=== PATIENT | female | born 1955 | race Native Hawaiian/Other Pacific Islander ===

== ENCOUNTER 2016-12-03 11:27 | Inpatient (IN) | payer MEDICAID, OTHER ==
[2016-12-03 12:33] LABS: BASO % 0.5 % (0.0-2.0); EOS # 0.1 K/uL (0.0-0.7); EOS % 2.3 % (0.0-4.0); HEMATOCRIT 40.4 % (34.0-47.0); LYMPH # 1.2 K/uL (1.0-4.3); LYMPH % 28.1 % (20.0-40.0); MEAN CELL VOLUME 84.3 fl (81.0-99.0); MEAN CORPUSCULAR HEMOGLOBIN 28.7 pg (27.0-31.0); MEAN CORPUSCULAR HGB CONC 34.1 g/dL (33.0-37.0); MEAN PLATELET VOLUME 8.8 fl (7.2-11.7); MONO # 0.4 K/uL (0.0-0.8); MONO % 8.9 % (0.0-10.0); NEUT # 2.6 K/uL (1.8-7.0); NEUT % 60.2 % (50.0-75.0); NRBC % 0.1 % (0.0-0.0); RED CELL DISTRIBUTION WIDTH 17.9 % (11.5-14.5); WHITE BLOOD COUNT 4.2 K/uL (4.8-10.8)
[2016-12-03 12:37] LABS: ALB/GLOB RATIO 0.9 (1.0-2.1); ALKALINE PHOSPHATASE 99 U/L (38-126); ALT/SGPT 25 U/L (9-52); AST/SGOT 53 U/L (14-36); BILIRUBIN,TOTAL 2.2 mg/dl (0.2-1.3); BLOOD UREA NITROGEN 18 mg/dl (7-17); CALCIUM 9.2 mg/dL (8.4-10.2); CARBON DIOXIDE 26 mmol/L (22-30); CHLORIDE 104 mmol/L (98-107); GFR AFRICAN-AMERICAN > 60; GLUCOSE,RANDOM 131 mg/dL (65-105); LIPASE 136 U/L (23-300); SODIUM 143 mmol/l (132-148); TOTAL PROTEIN 7.5 G/DL (6.3-8.2)
[2016-12-03 13:11] LABS: POTASSIUM 5.1 MMOL/L (3.6-5.0)
--- NOTE | 2016-12-03 13:16 | RAD ---
Obstructive series dated 12/03/2016. History: Abdominal pain and vomiting. Frontal view of the chest and supine/erect views of the abdomen performed. No prior study available comparison. Findings: Heart is mildly enlarged. Aorta is slightly ectatic and uncoiled. Lung brown are clear without focal consolidation or effusion. No free air seen under the diaphragmatic surfaces. Moderate to large amount of stool is seen throughout the colon consistent with fecal retention/constipation. Elliptical shaped coarse calcification overlying the right parasagittal sacrum non most likely represent calcified uterine fibroid. Impression: Mild cardiomegaly. No acute infiltrates. Findings consistent with constipation.
--- NOTE | 2016-12-03 13:58 | ED PDOC ---
HPI: Abdomen Time Seen by Provider: 12/03/16 11:48 Chief Complaint (Nursing): Abdominal Pain History Per: Other (patient brought from home via EMS. per report patient has abdominal pain according to the daughter. Daughter has not shown up to the hospital. Patient is not capable of giving a history. Was told by EMS that she is lithuanian but she did not acknowledge any of the video interpretors that were used.) History/Exam Limitations: language barrier Past Medical History Reviewed: Unable To Obtain Vital Signs: Last Vital Signs Temp 97.3 F L 12/03/16 11:29 Pulse 97 H 12/03/16 11:29 Resp 18 12/03/16 11:29 BP 125/79 12/03/16 11:29 Pulse Ox 98 12/03/16 14:37 - Family History Family History: States: No Known Family Hx - Allergies Allergies/Adverse Reactions: Allergies Allergy/AdvReac Type Severity Reaction Status Date / Time No Known Allergies Allergy Verified 12/03/16 12:00 Review of Systems Review Of Systems: ROS cannot be obtained secondary to pt's inabilty to answer questions. Physical Exam - Reviewed Nursing Documentation Reviewed: Yes Vital Signs Reviewed: Yes - Physical Exam Appears: Positive for: Well, Non-toxic, No Acute Distress Head Exam: Positive for: ATRAUMATIC, NORMAL INSPECTION, NORMOCEPHALIC Skin: Positive for: Normal Color, Warm, DRY Eye Exam: Positive for: EOMI, Normal appearance, PERRL ENT: Positive for: Normal ENT Inspection Neck: Positive for: Normal, Painless ROM Cardiovascular/Chest: Positive for: Regular Rate, Rhythm Respiratory: Positive for: CNT, Normal Breath Sounds Gastrointestinal/Abdominal: Positive for: Normal Exam, Bowel Sounds, Soft Back: Positive for: Normal Inspection Extremity: Positive for: Normal ROM Neurologic/Psych: Positive for: Alert, Oriented - Laboratory Results Result Diagrams: 12/03/16 12:10 12/03/16 12:10 - ECG O2 Sat by Pulse Oximetry: 98 Disposition - Clinical Impression Clinical Impression: Abdominal pain in female - Patient ED Disposition Is Patient to be Admitted: Transfer of Care - Disposition Disposition: Transfer of Care Disposition Time: 14:37 Condition: STABLE Patient Signed Over To: Payal Holm
--- NOTE | 2016-12-03 15:22 | ED PDOC ---
- Laboratory Results Result Diagrams: 12/03/16 12:10 12/03/16 12:10 - ECG ECG Rhythm: Positive for: Normal ST Segment, Atrial Fibrillation O2 Sat by Pulse Oximetry: 98 (RA) Pulse Ox Interpretation: Normal Medical Decision Making Medical Decision Making: Time: 15:00 --Transfer of care --Patient is pending ER workup, reassessment, and final disposition. Labs unremarkable. Accession No. : [id number] Patient Name / ID : TUAN HERNANDEZ / [id number] Exam Date : 12/03/2016 16:19:19 ( Approved ) Study Comment : Sex / Age : F / 61Y Creator : Jerome Joy MD Dictator : Jerome Joy MD Spare Parts Clerk : Inspector Aligning : Jerome Joy MD Approver2 : Report Date : 12/03/2016 17:07:48 My Comment : PROCEDURE: CT Abdomen and pelvis 12/03/16. HISTORY: abd pain COMPARISON: No prior TECHNIQUE: Contiguous axial images of the abdomen and pelvis. Oral contrast was administered. No IV contrast given. Coronal and Sagittal reformats generated. Radiation dose: Total exam DLP = 1028.21mGy-cm. This CT exam was performed using one or more of the following dose reduction techniques: Automated exposure control, adjustment of the mA and/or kV according to patient size, and/or use of iterative reconstruction technique. FINDINGS: LOWER THORAX: Mild right basilar atelectasis and or scarring. No effusion or basilar pneumothorax. There is a small hiatal hernia with wall thickening of the distal esophagus that could be due to protrusion gastric mucosa. Esophagitis or other intrinsic/invasive wall lesion not excluded. Heart size within range of normal. No significant pericardial effusion. LIVER: Liver exhibits normal size and attenuation pattern. No evidence of obvious hepatic mass or collection. GALLBLADDER AND BILE DUCTS: Gallbladder is physiologically distended. No evidence of intraluminal gallbladder calculi. PANCREAS: Visualized portions of the pancreas appear grossly unremarkable without mass collection calcification or significant ductal dilatation. SPLEEN: Spleen is mildly enlarged measuring approximately 14 cm in CC dimension. No obvious splenic mass collection or calcification. There are multiple serpiginous densities in the left upper quadrant of the abdomen adjacent to the posterior margin of the pancreas surrounding adjacent to the spleen and liver consistent with varices. Findings suggest underlying portal hypertension however clinical correlation with history recommended. . ADRENALS: There are no adrenal lesions. KIDNEYS AND URETERS: Kidneys exhibit symmetric size. . No evidence of nephrolithiasis or hydronephrosis. BLADDER: Urinary bladder is incompletely distended which may account for thick-walled appearance. Cystitis should be excluded. REPRODUCTIVE: Uterus is somewhat bulky and enlarged with more discrete exophytic appearing soft density containing calcification consistent with a calcified exophytic uterine fibroid. Pelvic ultrasound recommended confirm. APPENDIX: The appendix is not seen with certainty however no inflammatory changes right lower quadrant of the abdomen. BOWEL: The stomach is incompletely distended which presumably accounts for slight thick -walled appearance. Visualized loops of small bowel exhibit normal contour and caliber. No evidence of acute mechanical small bowel obstruction. Moderately large amount of stool seen throughout the colon consistent with constipation. No definitive mural wall thickening. PERITONEUM: Unremarkable. No fluid collection. No free air. There is a small to medium sized fat containing umbilical hernia. In addition, there also appears to be a fat containing right posterolateral abdominal wall hernia best seen on axial image numbers 57- 92 LYMPH NODES: Evaluation for adenopathy somewhat limited due to the lack of circulating intravenous contrast material however no significant bulky adenopathy VASCULATURE: Unremarkable. No aortic aneurysm. BONES: Minor multilevel degenerative spondylosis of the lower thoracic and lumbar spine few small sclerotic densities both femoral heads consistent osteomas or bone islands OTHER FINDINGS: None. IMPRESSION: Findings consistent with portal hypertension evidenced by varices. Suspect underlying cirrhosis. . Mild splenomegaly. Mild constipation. Fibroid uterus. Urinary bladder is incompletely distended which presumably accounts for thick- walled appearance. . Cystitis to be excluded. Fat containing umbilical and right posterolateral abdominal wall hernias as above Daughter arrived to ER and reported further history. Pt has aphasia and RIGHT sided weakness from a recent CVA, which is why there was difficulty with video curb attendant. Pt able to answer yes/no questions to daughter. She is reporting chest pain, feels like something is pushing on her chest, heaviness. Associated with shortness of breath described as feeling like she can't take a deep breath. She started vomiting today 2 episodes nonbilious nonbloody. No diarrhea. No fever/chills. She does not follow regularly with a PMD due to insurance issues. She has been compliant with her medications, given by her daughter. Given cardiovascular history, pt needs hospitalization for chest pain. DW Dr Mir Hospitalist Scribe Attestation: Documented by Sintia Gleason, acting as a scribe for Payal Holm MD. Provider Scribe Attestation: All medical record entries made by the Scribe were at my direction and personally dictated by me. I have reviewed the chart and agree that the record accurately reflects my personal performance of the history, physical exam, medical decision making, and the department course for this patient. I have also personally directed, reviewed, and agree with the discharge instructions and disposition. Disposition - Clinical Impression Clinical Impression: Chest pain, Atrial fibrillation - POA Present On Arrival: None - Disposition Disposition: Hospitalized as Observation Patient Disposition Time: 15:00 Condition: STABLE
--- NOTE | 2016-12-03 17:09 | CT ---
PROCEDURE: CT Abdomen and pelvis 12/03/16. HISTORY: abd pain COMPARISON: No prior TECHNIQUE: Contiguous axial images of the abdomen and pelvis. Oral contrast was administered. No IV contrast given. Coronal and Sagittal reformats generated. Radiation dose: Total exam DLP = 1028.21mGy-cm. This CT exam was performed using one or more of the following dose reduction techniques: Automated exposure control, adjustment of the mA and/or kV according to patient size, and/or use of iterative reconstruction technique. FINDINGS: LOWER THORAX: Mild right basilar atelectasis and or scarring. No effusion or basilar pneumothorax. There is a small hiatal hernia with wall thickening of the distal esophagus that could be due to protrusion gastric mucosa. Esophagitis or other intrinsic/invasive wall lesion not excluded. Heart size within range of normal. No significant pericardial effusion. LIVER: Liver exhibits normal size and attenuation pattern. No evidence of obvious hepatic mass or collection. GALLBLADDER AND BILE DUCTS: Gallbladder is physiologically distended. No evidence of intraluminal gallbladder calculi. PANCREAS: Visualized portions of the pancreas appear grossly unremarkable without mass collection calcification or significant ductal dilatation. SPLEEN: Spleen is mildly enlarged measuring approximately 14 cm in CC dimension. No obvious splenic mass collection or calcification. There are multiple serpiginous densities in the left upper quadrant of the abdomen adjacent to the posterior margin of the pancreas surrounding adjacent to the spleen and liver consistent with varices. Findings suggest underlying portal hypertension however clinical correlation with history recommended. . ADRENALS: There are no adrenal lesions. KIDNEYS AND URETERS: Kidneys exhibit symmetric size. . No evidence of nephrolithiasis or hydronephrosis. BLADDER: Urinary bladder is incompletely distended which may account for thick-walled appearance. Cystitis should be excluded. REPRODUCTIVE: Uterus is somewhat bulky and enlarged with more discrete exophytic appearing soft density containing calcification consistent with a calcified exophytic uterine fibroid. Pelvic ultrasound recommended confirm. APPENDIX: The appendix is not seen with certainty however no inflammatory changes right lower quadrant of the abdomen. BOWEL: The stomach is incompletely distended which presumably accounts for slight thick-walled appearance. Visualized loops of small bowel exhibit normal contour and caliber. No evidence of acute mechanical small bowel obstruction. Moderately large amount of stool seen throughout the colon consistent with constipation. No definitive mural wall thickening. PERITONEUM: Unremarkable. No fluid collection. No free air. There is a small to medium sized fat containing umbilical hernia. In addition, there also appears to be a fat containing right posterolateral abdominal wall hernia best seen on axial image numbers 57- 92 LYMPH NODES: Evaluation for adenopathy somewhat limited due to the lack of circulating intravenous contrast material however no significant bulky adenopathy VASCULATURE: Unremarkable. No aortic aneurysm. BONES: Minor multilevel degenerative spondylosis of the lower thoracic and lumbar spine few small sclerotic densities both femoral heads consistent osteomas or bone islands OTHER FINDINGS: None. IMPRESSION: Findings consistent with portal hypertension evidenced by varices. Suspect underlying cirrhosis. . Mild splenomegaly. Mild constipation. Fibroid uterus. Urinary bladder is incompletely distended which presumably accounts for thick-walled appearance. . Cystitis to be excluded. Fat containing umbilical and right posterolateral abdominal wall hernias as above
--- NOTE | 2016-12-03 18:01 | CARD ---
APPROVED REPORT EKG Measurement Heart [id number] <Conclusion> Atrial fibrillation Abnormal ECG
[2016-12-03 19:14] LABS: TROPONIN I 0.013 ng/mL (0.00-0.120)
--- NOTE | 2016-12-03 20:26 | CP.PCM.HP ---
History of Present Illness - History of Present Illness History of Present Illness: Hospitalist Admission H&P (Patient was seen and examined at 7:40 PM 12/03/16 ER Bed #23) PMD: NONE. NO insurance CODE STATUS: FULL CODE. NO Living Will/Advance Directive. Daughter Sabina is primary decision maker CHIEF COMPLAINT: Chest Pain 61 year old female (PMHx CVA, DM 2, HTN, A-fibrillation, Hyperthyroidism) who presented to [facility] ER earlier this morning via ambulance with a chief complaint of Chest Pain. Please note that when the patient arrived to the ER, staff could not understand what she was saying. Therefore ER Physician used an Italian [employer] Interpretor who also could not understand what the patient was saying. When patient's Daughter Sabina eventually arrived, Sabina explained that patient suffered a CVA with Right Arm and Right Leg Paralysis with Aphasia roughly 1 month ago and was treated at [facility]. I spoke with Sabina via phone and she explained that since last night, patient was complaining of center of the chest pain that felt like to her that someone was pushing on it. It was not constant but came and went. Then this morning after eating breakfast patient had 2 episodes of vomiting up the food that she had eaten. Therefore Sabina called EMS and patient was brought here. Sabina could not provide any more information than this and the patient is not verbal at the time of my exam. ROS: not possible as patient is not verbal PMHx: CVA with Right Arm/Leg Paralysis and Aphasia, DM 2, HTN, A-fibrillation, Hyperthyroidism (please note when speaking with Sabina and trying to obtain history she did not mention the A-fibrillation and the Hyperthyroidism: these two aspects of her history were the result of her exam and review of her medications) PSHx: ALL: NKDA, NO known food allergies Medications: Methimazole 5 mg PO 1x/day, Metformin 500 mg PO 1x/day, ASA 81 mg PO 1x/day, Metoprolol Tartrate 25 mg PO 2x/day, Lipitor 40 mg PO QHS, Apixaban 5 mg PO Q12H (Sabina assured me that patient was taking her medications as prescribed) Social History: Lives with Daughter, NO tobacco, NO alcohol, NO illicit drugs Family History: HTN, DM2, NO known CAD Present on Admission - Present on Admission Any Indicators Present on Admission: Yes History of DVT/PE: No Urinary Catheter: No Decubitus Ulcer Present: No Review of Systems - Review of Systems Review of Systems: See HPI Past Patient History - Infectious Disease Hx of Infectious Diseases: None - Past Medical History & Family History Pertinent Family History: See HPI - Past Social History Smoking Status: Unknown If Ever Smoked - PSYCHIATRIC Hx Substance Use: No Meds Allergies/Adverse Reactions: Allergies Allergy/AdvReac Type Severity Reaction Status Date / Time No Known Allergies Allergy Verified 12/03/16 12:00 Physical Exam - Constitutional Appears: Non-toxic, No Acute Distress - Head Exam Head Exam: ATRAUMATIC, NORMAL INSPECTION, NORMOCEPHALIC - Eye Exam Eye Exam: EOMI, Normal appearance, PERRL Pupil Exam: NORMAL ACCOMODATION, PERRL - ENT Exam ENT Exam: Mucous Membranes Moist, Normal Exam, Normal External Ear Exam, Normal Oropharynx Additional comments: Poor dentition - Neck Exam Neck exam: Positive for: Normal Inspection Additional comments: NO thyromegaly NO cervical lymphadenopathy - Respiratory Exam Respiratory Exam: Clear to Auscultation Bilateral, NORMAL BREATHING PATTERN Additional comments: NO R/R/W - Cardiovascular Exam Additional comments: Irregularly Irregular - GI/Abdominal Exam Additional comments: BSx4, Soft, NT, Central Obesity, NO HSM, NO guarding/rebound tenderness - Extremities Exam Additional comments: NO edema Capillary Refill is 2 seconds Pulses are strong and equal and irregular Right Anterior Lower Leg and Left Posterior Lower Leg have large skin patch that is brown - Neurological Exam Neurological exam: CN II-XII Intact Results - Vital Signs Recent Vital Signs: Last Vital Signs Temp 97.3 F L 12/03/16 11:29 Pulse 89 12/03/16 15:36 Resp 16 12/03/16 15:36 BP 144/82 12/03/16 15:36 Pulse Ox 99 12/03/16 15:36 - Labs Result Diagrams: 12/03/16 12:10 12/03/16 12:10 Labs: Laboratory Results - last 24 hr 12/03/16 18:32 Troponin I 0.0130 NT-Pro-B Natriuret Pep 769 Assessment & Plan (1) Atypical chest pain Assessment and Plan: Place on observation in the telemetry unit Troponin #1 and #2 are negative Troponin #3 and EKG ordered for 12:30 AM 12/04/16 F/U Stat TSH, T4, and D-Dimer Consult Manager Clinical Dr. Napoles for further recommendations Status: Acute (2) History of CVA (cerebrovascular accident) Assessment and Plan: History of CVA with Right Arm and Right Leg Paralysis roughly 1 month ago treated at [facility] Patient is also incontinent of urine F/U stat CT Head w/o contrast Status: Chronic (3) Abnormal computed tomography of abdomen and pelvis Assessment and Plan: CT Abdomen and Pelvis done in the ER Varices present with Portal HTN and Liver Cirrhosis is suspected: will need outpatient GI F/U Mild Contipation: Colace 100 mg PO 2x/day ordered Urinary Bladder is incompletely distended, Cystitis to be excluded: Ellis Catheter and Urine Culture ordered Fat containing umbilical and right posteriorlateral abdominal wall hernia: monitor Status: Acute (4) DM type 2 (diabetes mellitus, type 2) Assessment and Plan: Metformin 500 mg PO 1x/day F/U HgBA1C Accuchecks 4x/day with RISS Status: Chronic (5) HTN (hypertension) Assessment and Plan: Metoprolol Tartrate 25 mg PO 2x/day Consider adding a low dose KVNG I or ARB (considering DM 2) Status: Chronic (6) Atrial fibrillation Assessment and Plan: EKG shows A-fibrillation at 89 bpm Eliquis 5 mg PO Q12H once CT Head is confirmed negative for bleed Metoprolol as above Status: Chronic (7) Hyperthyroidism Assessment and Plan: F/U stat TSH and T4 Methimazole 5 mg PO 1x/day Status: Chronic (8) Hyperlipidemia Assessment and Plan: Lipitor 40 mg PO QHS F/U Lipid Panel in morning 12/04/16 Status: Chronic (9) Prophylactic measure Assessment and Plan: Protonix 40 mg PO 1x/day Eliquis as above once CT Head is negative Abdominal Obstruction Series showed MILD cardiomegaly (ProBNP was WNL). NO free air. Moderate to large amount of stool throughout the colon. Andre Mir D.O. Status: Acute
[2016-12-03 21:18] LABS: THYROID STIMULATING HORMONE 5.68 mIU/ML (0.46-4.68)
[2016-12-03] MEDS: Insulin Regular 100 units/ml SC SCH (21:30)
[2016-12-03 22:26] VITALS: BMI 33.2
[2016-12-03 22:46] LABS: RBC URINE 3 /hpf (0-3); URINE BACTERIA RARE (<OCC); URINE BILIRUBIN SMALL (NEGATIVE); URINE BLOOD NEGATIVE (NEGATIVE); URINE COLOR AMBER (YELLOW); URINE GLUCOSE (UA) NEG (Normal); URINE KETONE TRACE mg/dL (NEGATIVE); URINE LEUKOCYTE ESTERASE NEG Leu/uL (Negative); URINE PROTEIN 100 mg/dL (NEGATIVE); WBC URINE 2 /hpf (0-5)
[2016-12-04 06:15] LABS: BASO % 0.7 % (0.0-2.0); EOS # 0.1 K/uL (0.0-0.7); EOS % 2.6 % (0.0-4.0); HEMATOCRIT 38.6 % (34.0-47.0); LYMPH # 1.3 K/uL (1.0-4.3); MEAN CELL VOLUME 84.7 fl (81.0-99.0); MEAN CORPUSCULAR HGB CONC 34.3 g/dL (33.0-37.0); MEAN PLATELET VOLUME 9.4 fl (7.2-11.7); MONO # 0.4 K/uL (0.0-0.8); MONO % 9.2 % (0.0-10.0); NEUT # 2.2 K/uL (1.8-7.0); NEUT % 55.5 % (50.0-75.0); NRBC % 0.1 % (0.0-0.0); RED CELL DISTRIBUTION WIDTH 17.7 % (11.5-14.5)
[2016-12-04 06:17] LABS: BLOOD UREA NITROGEN 17 mg/dl (7-17); CALCIUM 9.5 mg/dL (8.4-10.2); CARBON DIOXIDE 26 mmol/L (22-30); CHLORIDE 104 mmol/L (98-107); CHOLESTEROL 103 mg/dL (0-199); GFR AFRICAN-AMERICAN > 60; GLUCOSE,RANDOM 146 mg/dL (65-105); MAGNESIUM 1.6 MG/DL (1.6-2.3); PHOSPHOROUS 4.4 mg/dl (2.5-4.5); POTASSIUM 3.8 MMOL/L (3.6-5.0); SODIUM 142 mmol/l (132-148)
[2016-12-04] MEDS: Insulin Regular 100 units/ml SC SCH ×4 (07:20→22:33)
--- NOTE | 2016-12-04 07:22 | CP.PCM.CON ---
History of Present Illness - History of Present Illness History of Present Illness: 61 year old female s/p CVA 1 Month ago (PMHx CVA, DM 2, HTN, A-fibrillation, Hyperthyroidism) who presented to [facility] ER earlier this morning via ambulance with a chief complaint of Chest Pain. Please note that when the patient arrived to the ER, staff could not understand what she was saying. Pt has been aphasic x [address] Head shows a small bleed in the patient's prior area of CVA. EKG: atrial Fibrillation Troponin : Neg Past Patient History - Infectious Disease Hx of Infectious Diseases: None - Past Medical History & Family History Past Medical History?: Yes - Past Social History Smoking Status: Never Smoked - CARDIAC Hx Cardiac Disorders: Yes - NEUROLOGICAL Hx Paralysis: Yes - ENDOCRINE/METABOLIC Hx Endocrine Disorders: Yes - MUSCULOSKELETAL/RHEUMATOLOGICAL Hx Falls: No - PSYCHIATRIC Hx Substance Use: No - SURGICAL HISTORY Hx Cholecystectomy: Yes - ANESTHESIA Hx Anesthesia: Yes Hx Anesthesia Reactions: No Meds Allergies/Adverse Reactions: Allergies Allergy/AdvReac Type Severity Reaction Status Date / Time No Known Allergies Allergy Verified 12/03/16 12:00 - Medications Medications: Current Medications Atorvastatin Calcium (Lipitor) 40 mg PO HS [facility] Last Admin: 12/03/16 22:06 Dose: 40 mg Docusate Sodium (Colace) 100 mg PO BID [facility] Last Admin: 12/03/16 22:20 Dose: 100 mg Insulin Human Regular (Humulin R) 0 units SC [facility] Last Admin: 12/03/16 21:30 Dose: Not Given Metformin HCl (Glucophage) 500 mg PO DAILY [facility] Methimazole (Tapazole) 5 mg PO DAILY [facility] Metoprolol Tartrate (Lopressor) 25 mg PO BID [facility] Pneumococcal Polyvalent Vaccine (Pneumovax 23 Vaccine) 0.5 ml IM .ONCE ONE Stop: 12/04/16 09:01 Physical Exam - Respiratory Exam Respiratory Exam: NORMAL BREATHING PATTERN - Cardiovascular Exam Cardiovascular Exam: Irregular Rhythm, REGULAR RHYTHM Results - Vital Signs Recent Vital Signs: Last Vital Signs Temp 97.7 F 12/04/16 04:00 Pulse 114 H 12/04/16 06:00 Resp 12 12/04/16 06:00 BP 128/67 12/04/16 06:00 Pulse Ox 96 12/04/16 06:00 - Labs Result Diagrams: 12/04/16 05:53 12/04/16 05:53 Labs: Laboratory Results - last 24 hr 12/03/16 12/03/16 12/03/16 18:32 20:29 20:35 WBC RBC Hgb Hct MCV MCH MCHC RDW Plt Count MPV Neut % (Auto) Lymph % (Auto) [place] % (Auto) Eos % (Auto) Baso % (Auto) Neut # Lymph # [place]tero # Eos # Baso # D-Dimer, Quantitative 0.55 H Sodium Potassium Chloride Carbon Dioxide Anion Gap BUN Creatinine Est GFR ( Amer) Est GFR (Non-Af Amer) POC Glucose (mg/dL) 123 H Random Glucose Calcium Phosphorus Magnesium Troponin I 0.0130 < 0.0120 NT-Pro-B Natriuret Pep 769 Triglycerides Cholesterol LDL Cholesterol Direct HDL Cholesterol Thyroxine (T4) 10.0 TSH 3rd Generation 5.68 H Urine Color Urine Clarity Urine pH Ur Specific [place] Urine Protein Urine Glucose (UA) Urine Ketones Urine Blood Urine Nitrate Urine Bilirubin Urine Urobilinogen Ur Leukocyte Esterase Urine RBC (Auto) Urine Microscopic WBC Ur Squamous Epith Cells Urine Bacteria 12/03/16 12/04/16 12/04/16 22:07 01:04 05:53 WBC 4.0 L RBC 4.55 Hgb 13.2 Hct 38.6 MCV 84.7 MCH 29.0 MCHC 34.3 RDW 17.7 H Plt Count 170 MPV 9.4 Neut % (Auto) 55.5 Lymph % (Auto) 32.0 O[place] % (Auto) 9.2 Eos % (Auto) 2.6 Baso % (Auto) 0.7 Neut # 2.2 Lymph # 1.3 O[place]o # 0.4 Eos # 0.1 Baso # 0.0 D-Dimer, Quantitative Sodium 142 Potassium 3.8 Chloride 104 Carbon Dioxide 26 Anion Gap 15 BUN 17 Creatinine 0.6 L Est GFR ( Amer) > 60 Est GFR (Non-Af Amer) > 60 POC Glucose (mg/dL) 132 H Random Glucose 146 H Calcium 9.5 Phosphorus 4.4 Magnesium 1.6 Troponin I < 0.0120 NT-Pro-B Natriuret Pep Triglycerides 90 Cholesterol 103 LDL Cholesterol Direct 46 HDL Cholesterol 35 Thyroxine (T4) TSH 3rd Generation Urine Color [place] Urine Clarity Cloudy Urine pH 5.0 Ur Specific [place] 1.039 H Urine Protein 100 Urine Glucose (UA) Neg Urine Ketones Trace Urine Blood Negative Urine Nitrate Negative Urine Bilirubin Small Urine Urobilinogen 2.0 H Ur Leukocyte Esterase Neg Urine RBC (Auto) 3 Urine Microscopic WBC 2 Ur Squamous Epith Cells 3 Urine Bacteria Rare Assessment & Plan (1) Atypical chest pain Assessment and Plan: EKG: WNL Troponin neg do not fell this represents ACS Status: Resolved (2) Atrial fibrillation Assessment and Plan: The patient's HR is controlled at present if need be would start Metoprolol Status: Chronic (3) DM type 2 (diabetes mellitus, type 2) Status: Chronic (4) HTN (hypertension) Status: Chronic (5) History of CVA (cerebrovascular accident) Status: Chronic
--- NOTE | 2016-12-04 08:29 | CT ---
PROCEDURE: CT HEAD WITHOUT CONTRAST. HISTORY: Dizziness, Headache COMPARISON: None available. TECHNIQUE: Axial computed tomography images were obtained through the head/brain without intravenous contrast. Radiation dose: Total exam DLP = 1238.81 MGy-cm. This CT exam was performed using one or more of the following dose reduction techniques: Automated exposure control, adjustment of the mA and/or kV according to patient size, and/or use of iterative reconstruction technique. FINDINGS: HEMORRHAGE: No intracranial hemorrhage. BRAIN: There is multifocal linear high attenuation in the left basal ganglia posterior limb of internal capsule and medial temporal. There is a large cystic encephalomalacia in the left almonte radiata, frontal, temporal and parietal lobes and basal ganglia with volume loss and mild ex vacuo dilatation of the left lateral ventricle. VENTRICLES: There is moderate age-related global parenchymal volume loss and proportionate enlargement of the ventricles and cortical sulci. . CALVARIUM: The skull base and calvarium are normal. PARANASAL SINUSES: There is complete opacification of the visualized right maxillary and ethmoid air cells and mild mucosal thickening in the right frontal sinus. The visualized left-sided paranasal sinuses are clear. MASTOID AIR CELLS: Predominantly clear. OTHER FINDINGS: None. IMPRESSION: Linear acute hemorrhage in the left basal ganglia and posterior limb internal capsule and medial temporal lobe. Large cystic encephalomalacia in the left almonte radiata, frontal, temporal and parietal lobes and basal ganglia a sequela of left MCA territory infarction. Moderate age related global parenchymal volume loss. A preliminary report was provided by [employer].
--- NOTE | 2016-12-04 08:58 | CP.CCUPN ---
CCU Subjective - Physician Review Events Since Last Encounter (Free Text): 12/04/16 08:56 Patient awake, no distress, aphasic, no fever, no vomiting, events reviewed CCU Objective - Vital Signs / Intake & Output Vital Signs (Last 4 hours): Vital Signs Pulse Resp BP Pulse Ox 12/04/16 06:00 114 H 12 128/67 96 Intake and Output (Last 8hrs): Intake & Output 12/03/16 12/04/16 12/04/16 22:59 06:59 14:59 Intake Total 0 120 Output Total 200 Balance 0 -80 Weight 212 lb Intake: IV 0 Oral 120 Output: Urine 200 Urethral (Ellis) 200 - Physical Exam Head: Positive for: Atraumatic, Normocephalic Pupils: Positive for: PERRL Conjunctiva: Positive for: Normal Ears: Positive for: Normal Mouth: Positive for: Moist Mucous Membranes Pharnyx: Positive for: Normal Nose (External): Positive for: Atraumatic Neck: Positive for: Normal Range of Motion Respiratory/Chest: Positive for: Clear to Auscultation Cardiovascular: Positive for: Irregular Rhythm Abdomen: Positive for: Normal Bowel Sounds Upper Extremity: Positive for: Normal Inspection Lower Extremity: Positive for: Edema Neurological: Positive for: Other (Rt side hemparesis) - Medications Active Medications: Active Medications Generic Name Dose Route Start Last Admin Trade Name Freq PRN Reason Stop Dose Admin Atorvastatin Calcium 40 mg 12/03/16 22:00 12/03/16 22:06 Lipitor PO 40 mg HS JULIETA Administration Docusate Sodium 100 mg 12/03/16 20:45 12/03/16 22:20 Colace PO 100 mg BID JULIETA Administration Insulin Human Regular 0 units 12/03/16 22:00 12/03/16 21:30 Humulin R SC Not Given ACHS JULIETA Metformin HCl 500 mg 12/04/16 09:00 Glucophage PO DAILY [facility] Methimazole 5 mg 12/04/16 09:00 Tapazole PO DAILY [facility] Metoprolol Tartrate 25 mg 12/04/16 09:00 Lopressor PO BID [facility] Pneumococcal Polyvalent Vaccine 0.5 ml 12/04/16 09:00 Pneumovax 23 Vaccine IM 12/04/16 09:01 .ONCE ONE - Patient Studies Lab Studies: Lab Studies 04/22/17 04/22/17 04/22/17 Range/Units 06:34 05:53 01:04 WBC 4.0 L (4.8-10.8) K/uL RBC 4.55 (3.80-5.20) Mil/uL Hgb 13.2 (12.0-16.0) g/dL Hct 38.6 (34.0-47.0) % MCV 84.7 (81.0-99.0) fl MCH 29.0 (27.0-31.0) pg MCHC 34.3 (33.0-37.0) g/dL RDW 17.7 H (11.5-14.5) % Plt Count 170 (130-400) K/uL MPV 9.4 (7.2-11.7) fl Neut % (Auto) 55.5 (50.0-75.0) % Lymph % (Auto) 32.0 (20.0-40.0) % [place] % (Auto) 9.2 (0.0-10.0) % Eos % (Auto) 2.6 (0.0-4.0) % Baso % (Auto) 0.7 (0.0-2.0) % Neut # 2.2 (1.8-7.0) K/uL Lymph # 1.3 (1.0-4.3) K/uL [place] # 0.4 (0.0-0.8) K/uL Eos # 0.1 (0.0-0.7) K/uL Baso # 0.0 (0.0-0.2) K/uL D-Dimer, Quantitative (0-0.50) mg/L FEU Sodium 142 (132-148) mmol/l Potassium 3.8 (3.6-5.0) MMOL/L Chloride 104 (98-107) mmol/L Carbon Dioxide 26 (22-30) mmol/L Anion Gap 15 (10-20) BUN 17 (7-17) mg/dl Creatinine 0.6 L (0.7-1.2) mg/dL Est GFR ( Amer) > 60 Est GFR (Non-Af Amer) > 60 POC Glucose (mg/dL) 125 H 132 H (65-110) mg/dL Random Glucose 146 H (65-105) mg/dL Calcium 9.5 (8.4-10.2) mg/dL Phosphorus 4.4 (2.5-4.5) mg/dl Magnesium 1.6 (1.6-2.3) MG/DL Troponin I < 0.0120 (0.00-0.120) ng/mL NT-Pro-B Natriuret Pep (0-900) pg/ml Triglycerides 90 (0-149) mg/DL Cholesterol 103 (0-199) mg/dL LDL Cholesterol Direct 46 (0-129) mg/dL HDL Cholesterol 35 (30-70) MG/DL Thyroxine (T4) (5.5-11.0) ug/dl TSH 3rd Generation (0.46-4.68) mIU/ML Urine Color (YELLOW) Urine Clarity (Clear) Urine pH (5.0-8.0) Ur Specific [place] (1.003-1.030) Urine Protein (NEGATIVE) mg/dL Urine Glucose (UA) (Normal) mg/dL Urine Ketones (NEGATIVE) mg/dL Urine Blood (NEGATIVE) Urine Nitrate (NEGATIVE) Urine Bilirubin (NEGATIVE) Urine Urobilinogen (0.2-1.0) mg/dL Ur Leukocyte Esterase (Negative) [place]/uL Urine RBC (Auto) (0-3) /hpf Urine Microscopic WBC (0-5) /hpf Ur Squamous Epith Cells (0-5) /hpf Urine Bacteria (<OCC) 12/03/16 12/03/16 12/03/16 Range/Units 22:07 20:35 20:29 WBC (4.8-10.8) K/uL RBC (3.80-5.20) Mil/uL Hgb (12.0-16.0) g/dL Hct (34.0-47.0) % MCV (81.0-99.0) fl MCH (27.0-31.0) pg MCHC (33.0-37.0) g/dL RDW (11.5-14.5) % Plt Count (130-400) K/uL MPV (7.2-11.7) fl Neut % (Auto) (50.0-75.0) % Lymph % (Auto) (20.0-40.0) % [place] % (Auto) (0.0-10.0) % Eos % (Auto) (0.0-4.0) % Baso % (Auto) (0.0-2.0) % Neut # (1.8-7.0) K/uL Lymph # (1.0-4.3) K/uL [place] # (0.0-0.8) K/uL Eos # (0.0-0.7) K/uL Baso # (0.0-0.2) K/uL D-Dimer, Quantitative 0.55 H (0-0.50) mg/L FEU Sodium (132-148) mmol/l Potassium (3.6-5.0) MMOL/L Chloride (98-107) mmol/L Carbon Dioxide (22-30) mmol/L Anion Gap (10-20) BUN (7-17) mg/dl Creatinine (0.7-1.2) mg/dL Est GFR ( Amer) Est GFR (Non-Af Amer) POC Glucose (mg/dL) 123 H (65-110) mg/dL Random Glucose (65-105) mg/dL Calcium (8.4-10.2) mg/dL Phosphorus (2.5-4.5) mg/dl Magnesium (1.6-2.3) MG/DL Troponin I < 0.0120 (0.00-0.120) ng/mL NT-Pro-B Natriuret Pep (0-900) pg/ml Triglycerides (0-149) mg/DL Cholesterol (0-199) mg/dL LDL Cholesterol Direct (0-129) mg/dL HDL Cholesterol (30-70) MG/DL Thyroxine (T4) 10.0 (5.5-11.0) ug/dl TSH 3rd Generation 5.68 H (0.46-4.68) mIU/ML Urine Color [place] (YELLOW) Urine Clarity Cloudy (Clear) Urine pH 5.0 (5.0-8.0) Ur Specific [place] 1.039 H (1.003-1.030) Urine Protein 100 (NEGATIVE) mg/dL Urine Glucose (UA) Neg (Normal) mg/dL Urine Ketones Trace (NEGATIVE) mg/dL Urine Blood Negative (NEGATIVE) Urine Nitrate Negative (NEGATIVE) Urine Bilirubin Small (NEGATIVE) Urine Urobilinogen 2.0 H (0.2-1.0) mg/dL Ur Leukocyte Esterase Neg (Negative) [place]/uL Urine RBC (Auto) 3 (0-3) /hpf Urine Microscopic WBC 2 (0-5) /hpf Ur Squamous Epith Cells 3 (0-5) /hpf Urine Bacteria Rare (<OCC) 12/03/16 Range/Units 18:32 WBC (4.8-10.8) K/uL RBC (3.80-5.20) Mil/uL Hgb (12.0-16.0) g/dL Hct (34.0-47.0) % MCV (81.0-99.0) fl MCH (27.0-31.0) pg MCHC (33.0-37.0) g/dL RDW (11.5-14.5) % Plt Count (130-400) K/uL MPV (7.2-11.7) fl Neut % (Auto) (50.0-75.0) % Lymph % (Auto) (20.0-40.0) % [place] % (Auto) (0.0-10.0) % Eos % (Auto) (0.0-4.0) % Baso % (Auto) (0.0-2.0) % Neut # (1.8-7.0) K/uL Lymph # (1.0-4.3) K/uL [place] # (0.0-0.8) K/uL Eos # (0.0-0.7) K/uL Baso # (0.0-0.2) K/uL D-Dimer, Quantitative (0-0.50) mg/L FEU Sodium (132-148) mmol/l Potassium (3.6-5.0) MMOL/L Chloride (98-107) mmol/L Carbon Dioxide (22-30) mmol/L Anion Gap (10-20) BUN (7-17) mg/dl Creatinine (0.7-1.2) mg/dL Est GFR ( Amer) Est GFR (Non-Af Amer) POC Glucose (mg/dL) (65-110) mg/dL Random Glucose (65-105) mg/dL Calcium (8.4-10.2) mg/dL Phosphorus (2.5-4.5) mg/dl Magnesium (1.6-2.3) MG/DL Troponin I 0.0130 (0.00-0.120) ng/mL NT-Pro-B Natriuret Pep 769 (0-900) pg/ml Triglycerides (0-149) mg/DL Cholesterol (0-199) mg/dL LDL Cholesterol Direct (0-129) mg/dL HDL Cholesterol (30-70) MG/DL Thyroxine (T4) (5.5-11.0) ug/dl TSH 3rd Generation (0.46-4.68) mIU/ML Urine Color (YELLOW) Urine Clarity (Clear) Urine pH (5.0-8.0) Ur Specific [place] (1.003-1.030) Urine Protein (NEGATIVE) mg/dL Urine Glucose (UA) (Normal) mg/dL Urine Ketones (NEGATIVE) mg/dL Urine Blood (NEGATIVE) Urine Nitrate (NEGATIVE) Urine Bilirubin (NEGATIVE) Urine Urobilinogen (0.2-1.0) mg/dL Ur Leukocyte Esterase (Negative) [place]/uL Urine RBC (Auto) (0-3) /hpf Urine Microscopic WBC (0-5) /hpf Ur Squamous Epith Cells (0-5) /hpf Urine Bacteria (<OCC) Laboratory Results - last 24 hr 12/03/16 12/03/16 12/03/16 18:32 20:29 20:35 WBC RBC Hgb Hct MCV MCH MCHC RDW Plt Count MPV Neut % (Auto) Lymph % (Auto) [place] % (Auto) Eos % (Auto) Baso % (Auto) Neut # Lymph # [place] # Eos # Baso # D-Dimer, Quantitative 0.55 H Sodium Potassium Chloride Carbon Dioxide Anion Gap BUN Creatinine Est GFR ( Amer) Est GFR (Non-Af Amer) POC Glucose (mg/dL) 123 H Random Glucose Calcium Phosphorus Magnesium Troponin I 0.0130 < 0.0120 NT-Pro-B Natriuret Pep 769 Triglycerides Cholesterol LDL Cholesterol Direct HDL Cholesterol Thyroxine (T4) 10.0 TSH 3rd Generation 5.68 H Urine Color Urine Clarity Urine pH Ur Specific [place] Urine Protein Urine Glucose (UA) Urine Ketones Urine Blood Urine Nitrate Urine Bilirubin Urine Urobilinogen Ur Leukocyte Esterase Urine RBC (Auto) Urine Microscopic WBC Ur Squamous Epith Cells Urine Bacteria 12/03/16 12/04/16 12/04/16 22:07 01:04 05:53 WBC 4.0 L RBC 4.55 Hgb 13.2 Hct 38.6 MCV 84.7 MCH 29.0 MCHC 34.3 RDW 17.7 H Plt Count 170 MPV 9.4 Neut % (Auto) 55.5 Lymph % (Auto) 32.0 [place] % (Auto) 9.2 Eos % (Auto) 2.6 Baso % (Auto) 0.7 Neut # 2.2 Lymph # 1.3 [place] # 0.4 Eos # 0.1 Baso # 0.0 D-Dimer, Quantitative Sodium 142 Potassium 3.8 Chloride 104 Carbon Dioxide 26 Anion Gap 15 BUN 17 Creatinine 0.6 L Est GFR ( Amer) > 60 Est GFR (Non-Af Amer) > 60 POC Glucose (mg/dL) 132 H Random Glucose 146 H Calcium 9.5 Phosphorus 4.4 Magnesium 1.6 Troponin I < 0.0120 NT-Pro-B Natriuret Pep Triglycerides 90 Cholesterol 103 LDL Cholesterol Direct 46 HDL Cholesterol 35 Thyroxine (T4) TSH 3rd Generation Urine Color [place] Urine Clarity Cloudy Urine pH 5.0 Ur Specific [place] 1.039 H Urine Protein 100 Urine Glucose (UA) Neg Urine Ketones Trace Urine Blood Negative Urine Nitrate Negative Urine Bilirubin Small Urine Urobilinogen 2.0 H Ur Leukocyte Esterase Neg Urine RBC (Auto) 3 Urine Microscopic WBC 2 Ur Squamous Epith Cells 3 Urine Bacteria Rare 12/04/16 06:34 WBC RBC Hgb Hct MCV MCH MCHC RDW Plt Count MPV Neut % (Auto) Lymph % (Auto) [place] % (Auto) Eos % (Auto) Baso % (Auto) Neut # Lymph # [place] # Eos # Baso # D-Dimer, Quantitative Sodium Potassium Chloride Carbon Dioxide Anion Gap BUN Creatinine Est GFR ( Amer) Est GFR (Non-Af Amer) POC Glucose (mg/dL) 125 H Random Glucose Calcium Phosphorus Magnesium Troponin I NT-Pro-B Natriuret Pep Triglycerides Cholesterol LDL Cholesterol Direct HDL Cholesterol Thyroxine (T4) TSH 3rd Generation Urine Color Urine Clarity Urine pH Ur Specific [place] Urine Protein Urine Glucose (UA) Urine Ketones Urine Blood Urine Nitrate Urine Bilirubin Urine Urobilinogen Ur Leukocyte Esterase Urine RBC (Auto) Urine Microscopic WBC Ur Squamous Epith Cells Urine Bacteria EKG/Cardiology Studies: Cardiology / EKG Studies 12/04/16 00:30 EKG [ELECTROCARDIOGRAM] Timed Comment: Mode Of Transportation: PORTABLE Reason For Exam: Atypical Chest Pain Fingerstick Blood Sugar Results: 132 Critical Care Progress Note - Nutrition Nutrition: Nutrition Category Date Time Status Pureed [Dysphagia/Modified Consistency Diet] [DIET] Diets 12/04/16 Breakfast Active Assessment/Plan - Assessment and Plan (Free Text) Assessment: A/P ICH, h/o CVA, DM, HYTN, A Fib, hyperthyroid, hyperlipedemia, chest pain improved , ?liver cirrhosis, portal hypertension - Neurosurgery follow up - Follow up CT head - Cardiology follow up - Continue meds
[2016-12-04] MEDS ORDERED: Pneumococcal 23-Valent Vaccine IM ONE (09:00)
[2016-12-04] MEDS: methIMAzole 5 MG TAB PO SCH (09:06)
--- NOTE | 2016-12-04 12:06 | CP.PCM.PN ---
Subjective - Date & Time of Evaluation Date of Evaluation: 12/04/16 Time of Evaluation: 11:00 - Subjective Subjective: Pt is aphasic however follows commands passed bedside swallow eval tolerated Pureed diet with nectar thickened denies CP no SOB no abd pain Objective - Vital Signs/Intake and Output Vital Signs (last 24 hours): Temp Pulse Resp BP Pulse Ox 97.4 F L 88 13 115/68 99 12/04/16 08:00 12/04/16 10:00 12/04/16 10:00 12/04/16 10:00 12/04/16 10:00 Intake and Output: 12/04/16 12/04/16 06:59 18:59 Intake Total 120 Output Total 200 Balance -80 - Medications Medications: Current Medications Atorvastatin Calcium (Lipitor) 40 mg PO HS [facility] Last Admin: 12/03/16 22:06 Dose: 40 mg Docusate Sodium (Colace) 100 mg PO BID [facility] Last Admin: 12/04/16 09:04 Dose: 100 mg Insulin Human Regular (Humulin R) 0 units SC ACHS [facility] Last Admin: 12/04/16 11:33 Dose: Not Given Metformin HCl (Glucophage) 500 mg PO DAILY [facility] Last Admin: 12/04/16 09:05 Dose: 500 mg Methimazole (Tapazole) 5 mg PO DAILY [facility] Last Admin: 12/04/16 09:06 Dose: 5 mg Metoprolol Tartrate (Lopressor) 25 mg PO BID [facility] Last Admin: 12/04/16 09:05 Dose: 25 mg - Labs Labs: 12/04/16 05:53 12/04/16 05:53 - Constitutional Appears: No Acute Distress - Head Exam Head Exam: NORMAL INSPECTION, NORMOCEPHALIC - Eye Exam Eye Exam: EOMI, Normal appearance, PERRL Pupil Exam: NORMAL ACCOMODATION - ENT Exam ENT Exam: Mucous Membranes Moist, Normal External Ear Exam - Neck Exam Neck Exam: Full ROM. absent: Meningismus - Respiratory Exam Respiratory Exam: NORMAL BREATHING PATTERN. absent: Respiratory Distress - Cardiovascular Exam Cardiovascular Exam: Irregular Rhythm, +S1, +S2 - GI/Abdominal Exam GI & Abdominal Exam: Soft, Normal Bowel Sounds. absent: Tenderness - Extremities Exam Extremities Exam: Normal Capillary Refill. absent: Calf Tenderness, Pedal Edema - Back Exam Back Exam: absent: CVA tenderness (L), CVA tenderness (R) - Neurological Exam Neurological Exam: Alert, Awake Neuro motor strength exam: Left Upper Extremity: 5, Right Upper Extremity: 0, Left Lower Extremity: 5, Right Lower Extremity: 0 Additional comments: aphasic - Psychiatric Exam Psychiatric exam: Normal Affect, Normal Mood - Skin Skin Exam: Normal Color, Warm Assessment and Plan - Assessment and Plan (Free Text) Assessment: 61 y/o lady with known Hx of HTN, Hyperthyroidism, DM, A Fib, CVA ( 1 month ago) with residual Right hemiparesis and aphasia, was brought in to the ED bec of chest pain and vomiting. At the ED, EKG showed A Fib . Troponin negative. CT of abd : Portal HTN / Cirrhosis. CT of the Head done showed : Linear acute hemorrhage in the left basal ganglia and posterior limb internal capsule and medial temporal lobe. Large cystic encephalomalacia in the left almonte radiata, frontal, temporal and parietal lobes and basal ganglia a sequela of left MCA territory infarction. 1. Acute Intraceerebral hemorrhage - admitted to the ICU -Neurosurgery consulted- ED physician - Dr Holm spoke with Dr Webber : no surgical intervention -Neurology consult: Dr Joyner - d/sherrie Magallon, no ASA - ri - PT/OT, Speech consult (1) Atypical chest pain Trop x 3 negative Consult Baggage Agent Dr. Napoles - not ACS no ASA cont statin, BB Status: Acute (2) History of CVA (cerebrovascular accident) with right hemiparesis Assessment and Plan: History of CVA with Right Arm and Right Leg Paralysis roughly 1 month ago [place] [facility] [place] is also incontinent of urine and has expressive aphasia Status: Chronic (3) Abnormal computed tomography of abdomen and pelvis- Portal HTN/Liver Cirrhosis Assessment and Plan: CT Abdomen and Pelvis done in the ER Varices present with Portal HTN and Liver Cirrhosis is suspected: will need outpatient GI F/U Mild Contipation: Colace 100 mg PO 2x/day ordered Urinary Bladder is incompletely distended, Cystitis to be excluded: Ellis Catheter and Urine Culture ordered Fat containing umbilical and right posteriorlateral abdominal wall hernia: monitor unclear etiology , no hx of ETOH, will speak with family will check Schistosoma Ab and Urine (pt is from [place]) GI consult Status: Acute (4) DM type 2 (diabetes mellitus, type 2) Assessment and Plan: Metformin 500 mg PO 1x/day F/U HgBA1C Accuchecks 4x/day with RISS Status: Chronic (5) HTN (hypertension) Assessment and Plan: Metoprolol Tartrate 25 mg PO 2x/day Consider adding a low dose KVNG I or ARB (considering DM 2) Status: Chronic (6) Atrial fibrillation Assessment and Plan: EKG shows A-fibrillation at 89 bpm d/c Eliquis due to ICH Metoprolol as above Status: Chronic (7) Hyperthyroidism controlled Assessment and Plan: Methimazole 5 mg PO 1x/day Status: Chronic (8) Hyperlipidemia Assessment and Plan: Lipitor 40 mg PO QHS Status: Chronic (9) Prophylactic measure Assessment and Plan: Protonix 40 mg PO 1x/day no anticoag due to ICH SCD
--- NOTE | 2016-12-05 00:17 | CP.PCM.CON ---
History of Present Illness - History of Present Illness History of Present Illness: CT Head shows a small bleed in the patient's prior area of CVA. ER Physician Dr. Holm notified Neurosurgeon Dr. Webber and it was recommended by him that Neurology be consulted and Dr. Holm will be speaking with Neurologist motion picture director. Patient to be admitted to the ICU instead of Telemetry Continue to HOLD Eliquis and ASA. Andre Mir D.O. Original Note: History of Present Illness - History of Present Illness History of Present Illness: Hospitalist Admission H&P (Patient was seen and examined at 7:40 PM 12/03/16 ER Bed #23) PMD: NONE. NO insurance CODE STATUS: FULL CODE. NO Living Will/Advance Directive. Daughter Sabina is primary decision maker CHIEF COMPLAINT: Chest Pain 61 year old female (PMHx CVA, DM 2, HTN, A-fibrillation, Hyperthyroidism) who presented to [facility] ER earlier this morning via ambulance with a chief complaint of Chest Pain. Please note that when the patient arrived to the ER, staff could not understand what she was saying. Therefore ER Physician used an [place] [employer] Maintenance Manager who also could not understand what the patient was saying. When patient's Daughter Sabian eventually arrived, Sabina explained that patient suffered a CVA with Right Arm and Right Leg Paralysis with Aphasia roughly 1 month ago and was treated at [facility]. I spoke with Sabina via phone and she explained that since last night, patient was complaining of center of the chest pain that felt like to her that someone was pushing on it. It was not constant but came and went. Then this morning after eating breakfast patient had 2 episodes of vomiting up the food that she had eaten. Therefore Sabina called EMS and patient was brought here. aSbina could not provide any more information than this and the patient is not verbal at the time of my exam. ROS: not possible as patient is not verbal PMHx: CVA with Right Arm/Leg Paralysis and Aphasia, DM 2, HTN, A-fibrillation, Hyperthyroidism (please note when speaking with Sabina and trying to obtain history she did not mention the A-fibrillation and the Hyperthyroidism: these two aspects of her history were the result of her exam and review of her medications) PSHx: ALL: NKDA, NO known food allergies Medications: Methimazole 5 mg PO 1x/day, Metformin 500 mg PO 1x/day, ASA 81 mg PO 1x/day, Metoprolol Tartrate 25 mg PO 2x/day, Lipitor 40 mg PO QHS, Apixaban 5 mg PO Q12H (Sabina assured me that patient was taking her medications as prescribed) Social History: Lives with Daughter, NO tobacco, NO alcohol, NO illicit drugs Family History: HTN, DM2, NO known CAD Present on Admission - Present on Admission Any Indicators Present on Admission: Yes History of DVT/PE: No Urinary Catheter: No Decubitus Ulcer Present: No Review of Systems - Review of Systems Review of Systems: See HPI Past Patient History - Infectious Disease Hx of Infectious Diseases: Bilharzia, 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 - Past Medical History & Family History Pertinent Family History: See HPI - Past Social History Smoking Status: Unknown If Ever Smoked - PSYCHIATRIC Hx Substance Use: No Meds Allergies/Adverse Reactions: Allergies Allergy/AdvReac Type Severity Reaction Status Date / Time No Known Allergies Allergy Verified 12/03/16 12:00 Past Patient History - Infectious Disease Hx of Infectious Diseases: None - Past Medical History & Family History Past Medical History?: Yes - Past Social History Smoking Status: Never Smoked - CARDIAC Hx Cardiac Disorders: Yes - NEUROLOGICAL Hx Paralysis: Yes - ENDOCRINE/METABOLIC Hx Endocrine Disorders: Yes - MUSCULOSKELETAL/RHEUMATOLOGICAL Hx Falls: No - PSYCHIATRIC Hx Substance Use: No - SURGICAL HISTORY Hx Cholecystectomy: Yes - ANESTHESIA Hx Anesthesia: Yes Hx Anesthesia Reactions: No Meds Allergies/Adverse Reactions: Allergies Allergy/AdvReac Type Severity Reaction Status Date / Time No Known Allergies Allergy Verified 12/03/16 12:00 - Medications Medications: Current Medications Atorvastatin Calcium (Lipitor) 40 mg PO HS [facility] Last Admin: 12/04/16 22:34 Dose: 40 mg Docusate Sodium (Colace) 100 mg PO BID [facility] Last Admin: 12/04/16 16:11 Dose: 100 mg Insulin Human Regular (Humulin R) 0 units SC [facility] Last Admin: 12/04/16 22:33 Dose: Not Given Metformin HCl (Glucophage) 500 mg PO DAILY [facility] Last Admin: 12/04/16 09:05 Dose: 500 mg Methimazole (Tapazole) 5 mg PO DAILY [facility] Last Admin: 12/04/16 09:06 Dose: 5 mg Metoprolol Tartrate (Lopressor) 25 mg PO BID [facility] Last Admin: 12/04/16 16:11 Dose: 25 mg Physical Exam - Neurological Exam Additional comments: Mental Status: Awake alert, expressive aphasia, unable to say anything Understands the questions She is a she has 2 children, according to her sign with the head. Follow simple commands, smiley. Cranial Nerves II to XII; Right facial Palsy, UMNL Central pupils, reactive to light Intact swallowing Central Tongue Motor: Right Spastic hemiplegia Right ankle Clonus DTR 0/4 Toes up going to the Right Sensory: Reduced peripherally and on the Right UE and LE Cerebellar: Normal Left FNT Results - Vital Signs Recent Vital Signs: Last Vital Signs Temp 97.7 F 12/04/16 20:00 Pulse 75 12/04/16 20:00 Resp 13 12/04/16 20:00 BP 159/76 H 12/04/16 20:00 Pulse Ox 99 12/04/16 20:00 - Labs Result Diagrams: 12/04/16 05:53 12/04/16 05:53 Labs: Laboratory Results - last 24 hr 12/03/16 12/04/16 12/04/16 20:29 01:04 05:53 WBC 4.0 L RBC 4.55 Hgb 13.2 Hct 38.6 MCV 84.7 MCH 29.0 MCHC 34.3 RDW 17.7 H Plt Count 170 MPV 9.4 Neut % (Auto) 55.5 Lymph % (Auto) 32.0 [place] % (Auto) 9.2 Eos % (Auto) 2.6 Baso % (Auto) 0.7 Neut # 2.2 Lymph # 1.3 [place] # 0.4 Eos # 0.1 Baso # 0.0 Sodium 142 Potassium 3.8 Chloride 104 Carbon Dioxide 26 Anion Gap 15 BUN 17 Creatinine 0.6 L Est GFR ( Amer) > 60 Est GFR (Non-Af Amer) > 60 POC Glucose (mg/dL) 123 H 132 H Random Glucose 146 H Calcium 9.5 Phosphorus 4.4 Magnesium 1.6 Troponin I < 0.0120 Triglycerides 90 Cholesterol 103 LDL Cholesterol Direct 46 HDL Cholesterol 35 12/04/16 12/04/16 12/04/16 06:34 11:32 16:01 WBC RBC Hgb Hct MCV MCH MCHC RDW Plt Count MPV Neut % (Auto) Lymph % (Auto) [place] % (Auto) Eos % (Auto) Baso % (Auto) Neut # Lymph # [place] # Eos # Baso # Sodium Potassium Chloride Carbon Dioxide Anion Gap BUN Creatinine Est GFR ( Amer) Est GFR (Non-Af Amer) POC Glucose (mg/dL) 125 H 109 122 H Random Glucose Calcium Phosphorus Magnesium Troponin I Triglycerides Cholesterol LDL Cholesterol Direct HDL Cholesterol 12/04/16 22:14 WBC RBC Hgb Hct MCV MCH MCHC RDW Plt Count MPV Neut % (Auto) Lymph % (Auto) [place] % (Auto) Eos % (Auto) Baso % (Auto) Neut # Lymph # [place] # Eos # Baso # Sodium Potassium Chloride Carbon Dioxide Anion Gap BUN Creatinine Est GFR ( Amer) Est GFR (Non-Af Amer) POC Glucose (mg/dL) 103 Random Glucose Calcium Phosphorus Magnesium Troponin I Triglycerides Cholesterol LDL Cholesterol Direct HDL Cholesterol Assessment & Plan (1) Atrial fibrillation Assessment and Plan: a major factor in her CVA History of Hyperthyroidism Status: Chronic (2) DM type 2 (diabetes mellitus, type 2) Status: Chronic (3) History of CVA (cerebrovascular accident) Assessment and Plan: Repeated CVA, she had a CVA last month at [facility] IC Hge Status: Chronic (4) Hemiplegia affecting dominant side Assessment and Plan: Aphasia, Dysarthria, CVA Status: Acute (5) Chest pain Assessment and Plan: Needs Cardiology Consult Status: Acute
[2016-12-05] MEDS: Insulin Regular 100 units/ml SC SCH ×4 (06:32→22:00)
--- NOTE | 2016-12-05 07:17 | CP.CCUPN ---
CCU Subjective - Physician Review Events Since Last Encounter (Free Text): 12/05/16 07:17 Patient awake, no distress, aphasic, no fever, no vomiting, events reviewed CCU Objective - Vital Signs / Intake & Output Vital Signs (Last 4 hours): Vital Signs Temp Pulse Resp BP Pulse Ox 12/05/16 04:00 98.3 F 108 H 15 97/58 L 96 Intake and Output (Last 8hrs): Intake & Output 12/04/16 12/05/16 12/05/16 22:59 06:59 14:59 Intake Total 60 Output Total 220 Balance -160 Intake: Oral 60 Output: Urine 220 Urethral (Ellis) 220 - Physical Exam Head: Positive for: Atraumatic, Normocephalic Pupils: Positive for: PERRL Conjunctiva: Positive for: Normal Ears: Positive for: Normal Mouth: Positive for: Moist Mucous Membranes Pharnyx: Positive for: Normal Nose (External): Positive for: Atraumatic Neck: Positive for: Normal Range of Motion Respiratory/Chest: Positive for: Clear to Auscultation Cardiovascular: Positive for: Irregular Rhythm Abdomen: Positive for: Normal Bowel Sounds Upper Extremity: Positive for: Normal Inspection Lower Extremity: Positive for: Edema Neurological: Positive for: Other (Rt side hemparesis) - Medications Active Medications: Active Medications Generic Name Dose Route Start Last Admin Trade Name Nuraq PRN Reason Stop Dose Admin Atorvastatin Calcium 40 mg 12/03/16 22:00 12/04/16 22:34 Lipitor PO 40 mg HS [facility] Administration Docusate Sodium 100 mg 12/03/16 20:45 12/04/16 16:11 Colace PO 100 mg BID [facility] Administration Insulin Human Regular 0 units 12/03/16 22:00 12/05/16 06:32 Humulin R SC Not Given ACHS [facility] Metformin HCl 500 mg 12/04/16 09:00 12/04/16 09:05 Glucophage PO 500 mg DAILY [facility] Administration Methimazole 5 mg 12/04/16 09:00 12/04/16 09:06 Tapazole PO 5 mg DAILY [facility] Administration Metoprolol Tartrate 25 mg 12/04/16 09:00 12/04/16 16:11 Lopressor PO 25 mg BID [facility] Administration - Patient Studies Lab Studies: Lab Studies 12/05/16 12/04/16 12/04/16 Range/Units 05:40 22:14 16:01 POC Glucose (mg/dL) 125 H 103 122 H (65-110) mg/dL 12/04/16 12/04/16 Range/Units 11:32 06:34 POC Glucose (mg/dL) 109 125 H (65-110) mg/dL Laboratory Results - last 24 hr 12/04/16 12/04/16 12/04/16 06:34 11:32 16:01 POC Glucose (mg/dL) 125 H 109 122 H 12/04/16 12/05/16 22:14 05:40 POC Glucose (mg/dL) 103 125 H Fingerstick Blood Sugar Results: 125 Critical Care Progress Note - Nutrition Nutrition: Nutrition Category Date Time Status Pureed [Dysphagia/Modified Consistency Diet] [DIET] Diets 12/04/16 Breakfast Active Assessment/Plan - Assessment and Plan (Free Text) Assessment: A/P ICH, h/o CVA, DM, HYTN, A Fib, hyperthyroid, hyperlipedemia, chest pain improved , ?liver cirrhosis, portal hypertension - Neurosurgery follow up - Pending MRI - Cardiology follow up - Continue meds
[2016-12-05 07:32] LABS: BLOOD UREA NITROGEN 16 mg/dl (7-17); CALCIUM 9.5 mg/dL (8.4-10.2); CARBON DIOXIDE 28 mmol/L (22-30); CHLORIDE 103 mmol/L (98-107); GFR AFRICAN-AMERICAN > 60; GLUCOSE,RANDOM 129 mg/dL (65-105); SODIUM 142 mmol/l (132-148)
[2016-12-05 07:35] LABS: HEMATOCRIT 38.5 % (34.0-47.0); MEAN CELL VOLUME 84.1 fl (81.0-99.0); MEAN CORPUSCULAR HGB CONC 34.5 g/dL (33.0-37.0); RED CELL DISTRIBUTION WIDTH 17.7 % (11.5-14.5); WHITE BLOOD COUNT 4.3 K/uL (4.8-10.8)
[2016-12-05] MEDS: methIMAzole 5 MG TAB PO SCH (09:18)
--- NOTE | 2016-12-05 10:18 | CP.PCM.PN ---
Subjective - Date & Time of Evaluation Date of Evaluation: 12/05/16 Time of Evaluation: 10:00 - Subjective Subjective: No worsening of neuro deficit tolerating PO diet- Pureed , nectar thickened Right hemiparesis old pt has expressive aphasia however follws simple commands denies pain no SOB Objective - Vital Signs/Intake and Output Vital Signs (last 24 hours): Temp Pulse Resp BP Pulse Ox 97.6 F 100 H 12 124/78 98 12/05/16 08:00 12/05/16 10:00 12/05/16 10:00 12/05/16 10:00 12/05/16 10:00 Intake and Output: 12/05/16 12/05/16 06:59 18:59 Intake Total 60 Output Total 220 Balance -160 - Medications Medications: Current Medications Atorvastatin Calcium (Lipitor) 40 mg PO HS [facility] Last Admin: 12/04/16 22:34 Dose: 40 mg Docusate Sodium (Colace) 100 mg PO BID [facility] Last Admin: 12/05/16 09:17 Dose: 100 mg Insulin Human Regular (Humulin R) 0 units SC ACHS [facility] Last Admin: 12/05/16 06:32 Dose: Not Given Metformin HCl (Glucophage) 500 mg PO DAILY [facility] Last Admin: 12/05/16 09:17 Dose: 500 mg Methimazole (Tapazole) 5 mg PO DAILY [facility] Last Admin: 12/05/16 09:18 Dose: 5 mg Metoprolol Tartrate (Lopressor) 25 mg PO BID [facility] Last Admin: 12/05/16 09:17 Dose: 25 mg - Labs Labs: 12/05/16 04:50 12/05/16 04:50 - Constitutional Appears: No Acute Distress - Head Exam Head Exam: NORMAL INSPECTION, NORMOCEPHALIC - Eye Exam Eye Exam: EOMI, Normal appearance, PERRL Pupil Exam: NORMAL ACCOMODATION - ENT Exam ENT Exam: Mucous Membranes Moist, Normal External Ear Exam - Neck Exam Neck Exam: Full ROM. absent: Meningismus - Respiratory Exam Respiratory Exam: NORMAL BREATHING PATTERN. absent: Respiratory Distress - Cardiovascular Exam Cardiovascular Exam: Irregular Rhythm, +S1, +S2 - GI/Abdominal Exam GI & Abdominal Exam: Soft, Normal Bowel Sounds. absent: Tenderness - Extremities Exam Extremities Exam: Normal Capillary Refill. absent: Calf Tenderness, Pedal Edema - Back Exam Back Exam: absent: CVA tenderness (L), CVA tenderness (R) - Neurological Exam Neurological Exam: Alert, Awake Neuro motor strength exam: Left Upper Extremity: 5, Right Upper Extremity: 0, Left Lower Extremity: 5, Right Lower Extremity: 0 Additional comments: aphasic - Psychiatric Exam Psychiatric exam: Normal Affect, Normal Mood - Skin Skin Exam: Normal Color, Warm Assessment and Plan - Assessment and Plan (Free Text) Assessment: 61 y/o lady with known Hx of HTN, Hyperthyroidism, DM, A Fib, CVA ( 1 month ago) with residual Right hemiparesis and aphasia, was brought in to the ED bec of chest pain and vomiting. At the ED, EKG showed A Fib . Troponin negative. CT of abd : Portal HTN / Cirrhosis. CT of the Head done showed : Linear acute hemorrhage in the left basal ganglia and posterior limb internal capsule and medial temporal lobe. Large cystic encephalomalacia in the left almonte radiata, frontal, temporal and parietal lobes and basal ganglia a sequela of left MCA territory infarction. 1. Acute Intraceerebral hemorrhage - admitted to the ICU -Neurosurgery consulted- ED physician - Dr Holm spoke with Dr Webber : no surgical intervention -Neurology consult: Dr Joyner - d/c Sherita, no ASA - PT/OT, Speech consulted - Dr Joyner rec MRI of the brain and EEG (1) Atypical chest pain Trop x 3 negative Consult Poultry Slaughterer Dr. Napoles - not ACS no ASA cont statin, BB Status: Acute (2) History of CVA (cerebrovascular accident) with right hemiparesis Assessment and Plan: History of CVA with Right Arm and Right Leg Paralysis roughly 1 month ago treated at [facility] Patient is also incontinent of urine and has expressive aphasia Status: Chronic (3) Abnormal computed tomography of abdomen and pelvis- Portal HTN/Liver Cirrhosis Assessment and Plan: CT Abdomen and Pelvis done in the ER Varices present with Portal HTN and Liver Cirrhosis is suspected: will need outpatient GI F/U Mild Contipation: Colace 100 mg PO 2x/day ordered Urinary Bladder is incompletely distended, Cystitis to be excluded: Ellis Catheter and Urine Culture ordered Fat containing umbilical and right posteriorlateral abdominal wall hernia: monitor unclear etiology , no hx of ETOH, will speak with family will check Schistosoma Ab and Urine (pt is from [place]) GI consult: Dr Foley Further work up can be done as outpt Status: Acute (4) DM type 2 (diabetes mellitus, type 2) Assessment and Plan: Metformin 500 mg PO 1x/day F/U HgBA1C Accuchecks 4x/day with RISS Status: Chronic (5) HTN (hypertension) Assessment and Plan: Metoprolol Tartrate 25 mg PO 2x/day Status: Chronic (6) Atrial fibrillation Assessment and Plan: EKG shows A-fibrillation at 89 bpm d/c Eliquis due to ICH Metoprolol as above Status: Chronic (7) Hyperthyroidism controlled Assessment and Plan: Methimazole 5 mg PO 1x/day Status: Chronic (8) Hyperlipidemia Assessment and Plan: Lipitor 40 mg PO QHS Status: Chronic (9) Prophylactic measure Assessment and Plan: Protonix 40 mg PO 1x/day no anticoag due to ICH SCD
[2016-12-06] MEDS: Insulin Regular 100 units/ml SC SCH ×4 (06:35→21:57)
[2016-12-06] MEDS: methIMAzole 5 MG TAB PO SCH (08:09)
[2016-12-06] MEDS ORDERED: Ergocalciferol 50,000 Intl Units Cap PO SCH (09:00)
--- NOTE | 2016-12-06 14:43 | MRI ---
PROCEDURE: MRI BRAIN WITHOUT CONTRAST HISTORY: bleed h/o cva COMPARISON: Comparison is made to the previous CT of the head dated 12/03/2016 TECHNIQUE: Multiplanar, multisequence MR images of the brain were obtained without intravenous contrast enhancement. FINDINGS: Suboptimal incomplete study. Patient could not tolerate the study. HEMORRHAGE: None DWI: No evidence of an acute or early subacute infarction. BRAIN PARENCHYMA: Heterogeneous focal a hypointense FLAIR and hyperintense T2 seen at the left temporal left basal ganglia and almonte radiata/centrum semiovale likely represent old infarct. Moderate atrophy is noted. There are 2 adjacent foci of hyperintense FLAIR signal seen at the right posterior parietal lobe of uncertain etiology. VENTRICLES: Unremarkable. No hydrocephalus. CRANIUM: Unremarkable. ORBITS: Enlargement and elongation of the globes bilaterally. Correlate clinically for possible increased pressure of the globes. PARANASAL SINUSES/MASTOIDS: Complete opacification of the right maxillary sinus and [id number] sinuses mucosal disease in the rest of the sinuses. VASCULAR SYSTEM: Skull base flow voids intact. OTHER FINDINGS: None. IMPRESSION: Incomplete limited study. The patient could not complete the exam. No T1 images of the brain could be obtained. Heterogeneous encephalomalacia at the left brain suggestive of old infarct. Two adjacent small foci of hyperintense FLAIR signal seen at the right posterior parietal lobe of uncertain etiology and not fully characterized in this study. Mildly enlarged elongated abnormal shape of the globes bilaterally . Correlate clinically for possible increase pressure of the eyes. Complete opacification of the right maxillary sinus and rnjy-me-lgkcaest mucosal disease in the left frontal ethmoidal and left maxillary sinuses.
--- NOTE | 2016-12-06 19:12 | CP.PCM.PN ---
Subjective - Date & Time of Evaluation Date of Evaluation: 12/06/16 Time of Evaluation: 09:30 - Subjective Subjective: Patient seen and evaluated bedside. Lying in bed in no acute distress, with aphasia and right side hemiparesis.no acute issues overnight Bp 110/53 HR 110 RR 12 afebrile WBC 4 K Hgb 13 ESR 48 Objective - Vital Signs/Intake and Output Vital Signs (last 24 hours): Temp Pulse Resp BP Pulse Ox 98.4 F 94 H 10 L 126/59 L 98 12/06/16 16:02 12/06/16 16:05 12/06/16 16:02 12/06/16 16:05 12/06/16 16:02 Intake and Output: 12/06/16 12/07/16 18:59 06:59 Intake Total 1500 Output Total 800 Balance 700 - Medications Medications: Current Medications Atorvastatin Calcium (Lipitor) 40 mg PO HS [facility] Last Admin: 12/05/16 21:47 Dose: 40 mg Calcium Carbonate (Oscal) 500 mg PO BIDWM [facility] Last Admin: 12/06/16 16:05 Dose: 500 mg Cyanocobalamin (Vitamin B12 1000 Mcg/Ml Inj) 1,000 mcg IM DAILY [facility] Last Admin: 12/06/16 08:09 Dose: 1,000 mcg Docusate Sodium (Colace) 100 mg PO BID [facility] Last Admin: 12/06/16 16:04 Dose: Not Given Ergocalciferol (Drisdol 50,000 Intl Units Cap) 1 cap PO Q7D [facility] Last Admin: 12/06/16 08:08 Dose: 1 cap Insulin Human Regular (Humulin R) 0 units SC ACHS [facility] Last Admin: 12/06/16 16:03 Dose: Not Given Metformin HCl (Glucophage) 500 mg PO DAILY [facility] Last Admin: 12/06/16 08:08 Dose: 500 mg Methimazole (Tapazole) 5 mg PO DAILY [facility] Last Admin: 12/06/16 08:09 Dose: 5 mg Metoprolol Tartrate (Lopressor) 25 mg PO BID [facility] Last Admin: 12/06/16 16:05 Dose: 25 mg - Labs Labs: 12/05/16 04:50 12/05/16 04:50 - Constitutional Appears: Non-toxic, No Acute Distress, Other (apahsic) - Head Exam Head Exam: ATRAUMATIC, NORMOCEPHALIC - Eye Exam Eye Exam: Normal appearance, PERRL Pupil Exam: NORMAL ACCOMODATION - ENT Exam ENT Exam: Mucous Membranes Moist, Normal Exam - Respiratory Exam Respiratory Exam: Clear to Ausculation Bilateral, NORMAL BREATHING PATTERN. absent: Rales, Rhonchi, Wheezes - Cardiovascular Exam Cardiovascular Exam: Tachycardia, Irregular Rhythm. absent: JVD - GI/Abdominal Exam GI & Abdominal Exam: Soft, Normal Bowel Sounds. absent: Distended, Guarding, Tenderness, Rebound - Rectal Exam Rectal Exam: Deferred - Extremities Exam Extremities Exam: Normal Capillary Refill, Normal Inspection. absent: Calf Tenderness, Pedal Edema - Neurological Exam Neurological Exam: Alert, Awake Additional comments: aphasic right hemiparesis - Psychiatric Exam Psychiatric exam: Flat Affect - Skin Skin Exam: Dry, Intact, Normal Color, Warm Assessment and Plan - Assessment and Plan (Free Text) Assessment: 61 y/oF with known Hx of HTN, Hyperthyroidism, DM, A Fib, CVA ( 1 month ago) with residual Right hemiparesis and aphasia, was brought in to the ED bec of chest pain and vomiting. At the ED, EKG showed A Fib . Troponin negative. CT of abd : Portal HTN / Cirrhosis. CT of the Head done showed : Linear acute hemorrhage in the left basal ganglia and posterior limb internal capsule and medial temporal lobe. Large cystic encephalomalacia in the left almonte radiata, frontal, temporal and parietal lobes and basal ganglia a sequela of left MCA territory infarction. Patient was admitted in ICU for close monitoring neurosurgery and neurology consulted and ASA and Eliquis discontinued.MRI of the brain ( poor quality film 0 showed no acute pathology. Patient at present hemodynamically stable, with aphasia and right hemiparesis , maximum assist for ADL-s. Referred patient to acute rehab and TCU and in the central hospital ewill continue Pt while in house. 1. Acute Intra Cerebral hemorrhage neurologically stable with aphasia and right hemiparesis since CVA 1 month ago Neurosurgery consulted, Dr Webber : no surgical intervention Neurology consult with Dr Joyner appreciated Discontinued Eliquis and ASA MRI showed no acute pathology F/u EEG PT/OT, Speech consulted. Patient is maximum assist for ADL-s . referred to TCU and acute rehab Continue Pt while in house 2. Atypical chest pain Trop x 3 negative Consult Management Analyst Dr. Napoles - not ACS no ASA cont statin, BB 3. History of CVA (cerebrovascular accident) with right hemiparesis and aphasia History of CVA with Right Arm and Right Leg Paralysis roughly 1 month ago treated at [facility] [place] Patient is also incontinent of urine and has expressive aphasia 4. Portal HTN/Liver Cirrhosis seen on CT unclear etiology Varices present with Portal HTN and Liver Cirrhosis is suspected: will need outpatient GI F/U as outpatient follow up Schistosoma Ab GI consult: Dr Foley Further work up can be done as outpt 5 DM type 2 (diabetes mellitus, type 2) controlled Metformin 500 mg PO HgBA1C 5.8 6. HTN (hypertension) controlled on Metoprolol Tartrate 7. Atrial fibrillation rate controlled EKG shows A-fibrillation at 89 bpm d/c Eliquis due to ICH continue Metoprolol 8.Hyperthyroidism controlled on Methimazole 9. Hyperlipidemia Lipitor 40 mg PO QHS 10. Vitamin B12 deficiency started Vitamin B12 supplements 11. Vitamin D deficiency supplement with vitamin D PO 12. Prophylactic measure no anticoag due to ICH SCD
--- NOTE | 2016-12-07 00:21 | CP.PCM.PN ---
Subjective - Date & Time of Evaluation Date of Evaluation: 12/06/16 Time of Evaluation: 21:20 - Subjective Subjective: Patient is doing better in general, not in distress. Objective - Vital Signs/Intake and Output Vital Signs (last 24 hours): Temp Pulse Resp BP Pulse Ox 98.9 F 99 H 17 109/62 99 12/07/16 00:00 12/07/16 00:00 12/07/16 00:00 12/07/16 00:00 12/07/16 00:00 Intake and Output: 12/06/16 12/07/16 18:59 06:59 Intake Total 1500 60 Output Total 800 Balance 700 60 - Medications Medications: Current Medications Atorvastatin Calcium (Lipitor) 40 mg PO HS [facility] Last Admin: 12/06/16 21:56 Dose: 40 mg Calcium Carbonate (Oscal) 500 mg PO BIDWM [facility] Last Admin: 12/06/16 16:05 Dose: 500 mg Cyanocobalamin (Vitamin B12 1000 Mcg/Ml Inj) 1,000 mcg IM DAILY [facility] Last Admin: 12/06/16 08:09 Dose: 1,000 mcg Docusate Sodium (Colace) 100 mg PO BID [facility] Last Admin: 12/06/16 16:04 Dose: Not Given Ergocalciferol (Drisdol 50,000 Intl Units Cap) 1 cap PO Q7D [facility] Last Admin: 12/06/16 08:08 Dose: 1 cap Insulin Human Regular (Humulin R) 0 units SC ACHS [facility] Last Admin: 12/06/16 21:57 Dose: Not Given Metformin HCl (Glucophage) 500 mg PO DAILY [facility] Last Admin: 12/06/16 08:08 Dose: 500 mg Methimazole (Tapazole) 5 mg PO DAILY [facility] Last Admin: 12/06/16 08:09 Dose: 5 mg Metoprolol Tartrate (Lopressor) 25 mg PO BID [facility] Last Admin: 12/06/16 16:05 Dose: 25 mg - Labs Labs: 12/05/16 04:50 12/05/16 04:50 Assessment and Plan (1) Atrial fibrillation Status: Chronic (2) DM type 2 (diabetes mellitus, type 2) Status: Chronic (3) History of CVA (cerebrovascular accident) Status: Chronic (4) Hemiplegia affecting dominant side Status: Acute (5) Chest pain Status: Acute
[2016-12-07 08:27] LABS: ALB/GLOB RATIO 0.8 (1.0-2.1); ALKALINE PHOSPHATASE 101 U/L (38-126); ALT/SGPT 27 U/L (9-52); AST/SGOT 86 U/L (14-36); BILIRUBIN,TOTAL 2.1 mg/dl (0.2-1.3); BLOOD UREA NITROGEN 16 mg/dl (7-17); CALCIUM 9.3 mg/dL (8.4-10.2); CARBON DIOXIDE 24 mmol/L (22-30); CHLORIDE 105 mmol/L (98-107); GFR AFRICAN-AMERICAN > 60; GLUCOSE,RANDOM 133 mg/dL (65-105); SODIUM 142 mmol/l (132-148); TOTAL PROTEIN 6.8 G/DL (6.3-8.2)
[2016-12-07 08:28] LABS: POTASSIUM 4.3 MMOL/L (3.6-5.0)
[2016-12-07 08:34] LABS: HEMATOCRIT 38.2 % (34.0-47.0); MEAN CORPUSCULAR HEMOGLOBIN 29.1 pg (27.0-31.0); MEAN CORPUSCULAR HGB CONC 33.7 g/dL (33.0-37.0); RED CELL DISTRIBUTION WIDTH 17.5 % (11.5-14.5)
[2016-12-07] MEDS: Insulin Regular 100 units/ml SC SCH ×4 (08:37→22:48)
[2016-12-07] MEDS: methIMAzole 5 MG TAB PO SCH (08:38)
[2016-12-07 08:41] LABS: MEAN CELL VOLUME 86.4 fl (81.0-99.0)
--- NOTE | 2016-12-07 16:51 | CP.PCM.PN ---
Subjective - Date & Time of Evaluation Date of Evaluation: 12/07/16 Time of Evaluation: 08:30 - Subjective Subjective: Patient seen and examined bedside. Hemodynamically stable, afebrile. Lying in bed in no acute distress, aphasic, denies any discomfort, follows commands, with right hemiparesis No acute issues overnight. Objective - Vital Signs/Intake and Output Vital Signs (last 24 hours): Temp Pulse Resp BP Pulse Ox 97.8 F 90 14 103/63 95 12/07/16 11:56 12/07/16 16:46 12/07/16 11:56 12/07/16 16:46 12/07/16 15:33 Intake and Output: 12/07/16 12/07/16 06:59 18:59 Intake Total 60 120 Balance 60 120 - Medications Medications: Current Medications Atorvastatin Calcium (Lipitor) 40 mg PO HS [facility] Last Admin: 12/06/16 21:56 Dose: 40 mg Calcium Carbonate (Oscal) 500 mg PO BIDWM [facility] Last Admin: 12/07/16 16:47 Dose: 500 mg Cyanocobalamin (Vitamin B12 1000 Mcg/Ml Inj) 1,000 mcg IM DAILY [facility] Last Admin: 12/07/16 08:39 Dose: 1,000 mcg Docusate Sodium (Colace) 100 mg PO BID [facility] Last Admin: 12/07/16 08:36 Dose: Not Given Ergocalciferol (Drisdol 50,000 Intl Units Cap) 1 cap PO Q7D [facility] Last Admin: 12/06/16 08:08 Dose: 1 cap Insulin Human Regular (Humulin R) 0 units SC ACHS [facility] Last Admin: 12/07/16 16:46 Dose: Not Given Metformin HCl (Glucophage) 500 mg PO DAILY [facility] Last Admin: 12/07/16 08:37 Dose: 500 mg Methimazole (Tapazole) 5 mg PO DAILY [facility] Last Admin: 12/07/16 08:38 Dose: 5 mg Metoprolol Tartrate (Lopressor) 25 mg PO BID [facility] Last Admin: 12/07/16 16:46 Dose: 25 mg - Labs Labs: 12/07/16 04:30 12/07/16 04:30 - Constitutional Appears: Non-toxic, No Acute Distress, Other (aphasic) - Head Exam Head Exam: ATRAUMATIC, NORMOCEPHALIC - Eye Exam Eye Exam: EOMI, PERRL Pupil Exam: NORMAL ACCOMODATION - ENT Exam ENT Exam: Mucous Membranes Moist, Normal Exam - Neck Exam Neck Exam: Full ROM, Normal Inspection - Respiratory Exam Respiratory Exam: Clear to Ausculation Bilateral, NORMAL BREATHING PATTERN. absent: Rales, Rhonchi, Wheezes - Cardiovascular Exam Cardiovascular Exam: Irregular Rhythm. absent: JVD - GI/Abdominal Exam GI & Abdominal Exam: Soft, Normal Bowel Sounds. absent: Distended, Guarding, Tenderness, Rebound - Rectal Exam Rectal Exam: Deferred - Extremities Exam Extremities Exam: Full ROM, Normal Capillary Refill, Normal Inspection. absent : Calf Tenderness, Pedal Edema - Neurological Exam Neurological Exam: Alert, Awake Additional comments: aphasic right hemiparesis - Psychiatric Exam Psychiatric exam: Normal Affect - Skin Skin Exam: Dry, Intact, Normal Color, Warm Assessment and Plan - Assessment and Plan (Free Text) Assessment: 61 y/oF with known Hx of HTN, Hyperthyroidism, DM, A Fib, CVA ( 1 month ago) with residual Right hemiparesis and aphasia, was brought in to the ED bec of chest pain and vomiting. At the ED, EKG showed A Fib . Troponin negative. CT of abd : Portal HTN / Cirrhosis. CT of the Head done showed : Linear acute hemorrhage in the left basal ganglia and posterior limb internal capsule and medial temporal lobe. Large cystic encephalomalacia in the left almonte radiata, frontal, temporal and parietal lobes and basal ganglia a sequela of left MCA territory infarction. Patient was admitted in ICU for close monitoring neurosurgery and neurology consulted and ASA and Eliquis discontinued.MRI of the brain ( poor quality film ) showed no acute pathology. Patient at present hemodynamically stable, with aphasia and right hemiparesis , maximum assist for ADL-s. Referred patient to acute rehab and will continue PT while in house. 1. Acute Intra Cerebral hemorrhage neurologically stable with aphasia and right hemiparesis since CVA 1 month ago Neurosurgery consulted, Dr Webber : no surgical intervention Neurology consult with Dr Joyner appreciated Discontinued Eliquis and ASA MRI showed no acute pathology F/u EEG PT/OT, Speech consulted. Patient is maximum assist for ADL-s . referred to TCU and acute rehab. will transfer to acute rehab in AM Continue PT while in house 2. Atypical chest pain Trop x 3 negative Consult Pest Control Service Technician Dr. Costomiris - not ACS no ASA cont statin, BB 3. 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 HTN (hypertension) controlled on Metoprolol Tartrate 7. Atrial fibrillation rate controlled EKG shows A-fibrillation at 89 bpm d/c Eliquis due to ICH continue Metoprolol 8.Hyperthyroidism controlled on Methimazole 9. Hyperlipidemia Lipitor 40 mg PO QHS 10. Vitamin B12 deficiency started Vitamin B12 supplements 11. Vitamin D deficiency supplement with vitamin D PO 12. Prophylactic measure no anticoag due to ICH SCD
--- NOTE | 2016-12-07 22:15 | CP.PCM.PN ---
Subjective - Date & Time of Evaluation Date of Evaluation: 12/07/16 Time of Evaluation: 17:00 - Subjective Subjective: No change in her condition. She is still in the ICU Objective - Vital Signs/Intake and Output Vital Signs (last 24 hours): Temp Pulse Resp BP Pulse Ox 97.8 F 96 H 12 117/70 95 12/07/16 11:56 12/07/16 16:56 12/07/16 13:00 12/07/16 16:56 12/07/16 15:33 Intake and Output: 12/07/16 12/08/16 18:59 06:59 Intake Total 120 Balance 120 - Medications Medications: Current Medications Atorvastatin Calcium (Lipitor) 40 mg PO HS [facility] Last Admin: 12/06/16 21:56 Dose: 40 mg Calcium Carbonate (Oscal) 500 mg PO BIDWM [facility] Last Admin: 12/07/16 16:47 Dose: 500 mg Cyanocobalamin (Vitamin B12 1000 Mcg/Ml Inj) 1,000 mcg IM DAILY [facility] Last Admin: 12/07/16 08:39 Dose: 1,000 mcg Docusate Sodium (Colace) 100 mg PO BID [facility] Last Admin: 12/07/16 08:36 Dose: Not Given Ergocalciferol (Drisdol 50,000 Intl Units Cap) 1 cap PO Q7D [facility] Last Admin: 12/06/16 08:08 Dose: 1 cap Insulin Human Regular (Humulin R) 0 units SC ACHS [facility] Last Admin: 12/07/16 16:46 Dose: Not Given Metformin HCl (Glucophage) 500 mg PO DAILY [facility] Last Admin: 12/07/16 08:37 Dose: 500 mg Methimazole (Tapazole) 5 mg PO DAILY [facility] Last Admin: 12/07/16 08:38 Dose: 5 mg Metoprolol Tartrate (Lopressor) 25 mg PO BID [facility] Last Admin: 12/07/16 16:46 Dose: 25 mg - Labs Labs: 12/07/16 04:30 12/07/16 04:30 Assessment and Plan (1) History of CVA (cerebrovascular accident) Status: Chronic (2) DM type 2 (diabetes mellitus, type 2) Status: Chronic (3) Atrial fibrillation Status: Chronic (4) Chest pain Status: Acute (5) Hemiplegia affecting dominant side Status: Acute
[2016-12-08] MEDS: Insulin Regular 100 units/ml SC SCH ×4 (07:03→21:01)
[2016-12-08] MEDS ORDERED: Metoprolol 1 mg/ml Inj IVP ONE (08:39)
[2016-12-08] MEDS: methIMAzole 5 MG TAB PO SCH (09:12)
--- NOTE | 2016-12-08 12:03 | CP.PCM.PN ---
Subjective - Date & Time of Evaluation Date of Evaluation: 12/08/16 Time of Evaluation: 11:00 - Subjective Subjective: Pt became tachycardic when she was sitted - Metoprolol IV given then PO dose increased to 50 mg bid No fever shakes head when asked if she is in pain + expressive aphasia Objective - Vital Signs/Intake and Output Vital Signs (last 24 hours): Temp Pulse Resp BP Pulse Ox 98.6 F 87 13 97/64 L 97 12/08/16 11:55 12/08/16 11:55 12/08/16 11:55 12/08/16 11:55 12/08/16 11:55 Intake and Output: 12/08/16 12/08/16 06:59 18:59 Intake Total 120 400 Output Total 800 Balance -680 400 - Medications Medications: Current Medications Atorvastatin Calcium (Lipitor) 40 mg PO HS [facility] Last Admin: 12/07/16 22:51 Dose: 40 mg Calcium Carbonate (Oscal) 500 mg PO BIDWM [facility] Last Admin: 12/08/16 09:12 Dose: 500 mg Cyanocobalamin (Vitamin B12 1000 Mcg/Ml Inj) 1,000 mcg IM DAILY [facility] Last Admin: 12/08/16 09:12 Dose: 1,000 mcg Docusate Sodium (Colace) 100 mg PO BID [facility] Last Admin: 12/08/16 09:12 Dose: 100 mg Ergocalciferol (Drisdol 50,000 Intl Units Cap) 1 cap PO Q7D [facility] Last Admin: 12/06/16 08:08 Dose: 1 cap Insulin Human Regular (Humulin R) 0 units SC ACHS [facility] Last Admin: 12/08/16 07:03 Dose: Not Given Metformin HCl (Glucophage) 500 mg PO DAILY [facility] Last Admin: 12/08/16 09:12 Dose: 500 mg Methimazole (Tapazole) 5 mg PO DAILY [facility] Last Admin: 12/08/16 09:12 Dose: 5 mg Metoprolol Tartrate (Lopressor) 50 mg PO Q12 [facility] - Labs Labs: 12/07/16 04:30 12/07/16 04:30 - Constitutional Appears: No Acute Distress - Head Exam Head Exam: NORMAL INSPECTION, NORMOCEPHALIC - Eye Exam Eye Exam: EOMI, Normal appearance, PERRL Pupil Exam: NORMAL ACCOMODATION - ENT Exam ENT Exam: Mucous Membranes Moist, Normal External Ear Exam - Neck Exam Neck Exam: Full ROM. absent: Meningismus - Respiratory Exam Respiratory Exam: NORMAL BREATHING PATTERN. absent: Respiratory Distress - Cardiovascular Exam Cardiovascular Exam: Irregular Rhythm, +S1, +S2 - GI/Abdominal Exam GI & Abdominal Exam: Soft, Normal Bowel Sounds. absent: Tenderness - Extremities Exam Extremities Exam: Normal Capillary Refill. absent: Calf Tenderness, Pedal Edema - Back Exam Back Exam: absent: CVA tenderness (L), CVA tenderness (R) - Neurological Exam Neurological Exam: Alert, Awake Neuro motor strength exam: Left Upper Extremity: 5, Right Upper Extremity: 0, Left Lower Extremity: 5, Right Lower Extremity: 0 Additional comments: aphasic - Psychiatric Exam Psychiatric exam: Normal Affect, Normal Mood - Skin Skin Exam: Normal Color, Warm Assessment and Plan - Assessment and Plan (Free Text) Assessment: 61 y/oF with known Hx of HTN, Hyperthyroidism, DM, A Fib, CVA ( 1 month ago) with residual Right hemiparesis and aphasia, was brought in to the ED bec of chest pain and vomiting. At the ED, EKG showed A Fib . Troponin negative. CT of abd : Portal HTN / Cirrhosis. CT of the Head done showed : Linear acute hemorrhage in the left basal ganglia and posterior limb internal capsule and medial temporal lobe. Large cystic encephalomalacia in the left almonte radiata, frontal, temporal and parietal lobes and basal ganglia a sequela of left MCA territory infarction. Patient was admitted in ICU for close monitoring neurosurgery and neurology consulted and ASA and Eliquis discontinued.MRI of the brain ( poor quality film ) showed no acute pathology. Patient at present hemodynamically stable, with aphasia and right hemiparesis , maximum assist for ADL-s. Referred patient to acute rehab and will continue PT while in house. 1. Acute Intra Cerebral hemorrhage neurologically stable with aphasia and right hemiparesis since CVA 1 month ago Neurosurgery consulted, Dr Webber : no surgical intervention Neurology consult with Dr Joyner appreciated Discontinued Eliquis and ASA MRI showed no acute pathology F/u EEG PT/OT, Speech consulted. Patient is maximum assist for ADL-s . referred to TCU and acute rehab. will transfer to acute rehab in AM Continue PT while in house 2. Atypical chest pain Trop x 3 negative Consult Thread Tool Grinder Set Up Operator Dr. Napoles - not ACS no ASA cont statin, BB 3. 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 HTN (hypertension) controlled controlled on Metoprolol Tartrate 7. Atrial fibrillation with RVR Pt became tachycardic with activity- was given IV Lopressor EKG shows A-fibrillation d/c Eliquis due to ICH Increase Metoprolol 50 mg bid monitor HR with activity ECHO 8.Hyperthyroidism controlled on Methimazole 9. Hyperlipidemia Lipitor 40 mg PO QHS 10. Vitamin B12 deficiency started Vitamin B12 supplements 11. Vitamin D deficiency supplement with vitamin D PO 12. Prophylactic measure no anticoag due to ICH SCD
--- NOTE | 2016-12-08 23:45 | CP.PCM.PN ---
Subjective - Date & Time of Evaluation Date of Evaluation: 12/08/16 Time of Evaluation: 19:00 - Subjective Subjective: She had tachycardia that improved with metaprolol Objective - Vital Signs/Intake and Output Vital Signs (last 24 hours): Temp Pulse Resp BP Pulse Ox 98.9 F 107 H 12 110/60 98 12/08/16 17:00 12/08/16 20:57 12/08/16 17:00 12/08/16 20:57 12/08/16 17:00 Intake and Output: 12/08/16 12/09/16 18:59 06:59 Intake Total 400 220 Balance 400 220 - Medications Medications: Current Medications Atorvastatin Calcium (Lipitor) 40 mg PO HS [facility] Last Admin: 12/08/16 21:00 Dose: 40 mg Calcium Carbonate (Oscal) 500 mg PO BIDWM [facility] Last Admin: 12/08/16 16:48 Dose: 500 mg Cyanocobalamin (Vitamin B12 1000 Mcg/Ml Inj) 1,000 mcg IM DAILY [facility] Last Admin: 12/08/16 09:12 Dose: 1,000 mcg Docusate Sodium (Colace) 100 mg PO BID [facility] Last Admin: 12/08/16 16:47 Dose: 100 mg Ergocalciferol (Drisdol 50,000 Intl Units Cap) 1 cap PO Q7D [facility] Last Admin: 12/06/16 08:08 Dose: 1 cap Insulin Human Regular (Humulin R) 0 units SC ACHS [facility] Last Admin: 12/08/16 21:01 Dose: Not Given Metformin HCl (Glucophage) 500 mg PO DAILY [facility] Last Admin: 12/08/16 09:12 Dose: 500 mg Methimazole (Tapazole) 5 mg PO DAILY [facility] Last Admin: 12/08/16 09:12 Dose: 5 mg Metoprolol Tartrate (Lopressor) 50 mg PO Q12 [facility] Last Admin: 12/08/16 20:57 Dose: 50 mg - Labs Labs: 12/07/16 04:30 12/07/16 04:30 Assessment and Plan (1) History of CVA (cerebrovascular accident) Status: Chronic (2) DM type 2 (diabetes mellitus, type 2) Status: Chronic (3) Atrial fibrillation Status: Chronic (4) Chest pain Status: Acute (5) Hemiplegia affecting dominant side Status: Acute
--- NOTE | 2016-12-09 05:39 | EEG ---
DATE: 12/09/2016 PROCEDURE: EEG. INDICATION: The record is obtained for a history of CVA, rule out seizures. The patient had a previous CVA last month and rule out a new CVA. The record was obtained while the patient was awake and drowsy. FINDINGS: The record was symmetrically equal on both sides with a velocity of 8 cycles per second. The waves a re fairly formed, fairly organized with a posterior distribution, moderate in amplitude, reactive to eye opening by attenuation. There were no abnormal discharges. No spike, polyspike, no sharp wave, no focal slowing, no paroxysmal discharge. The record did not show any changes with photic stimulati on. The hyperventilation was omitted. There are periods of drowsiness during which attenuation and slowing of the record were seen and theta waves were seen. There were no periods of sleep. There we re eye movement artifact, electrode artifact and muscle movement artifacts. IMPRESSION: In sum, this is a normal awake and drowsy EEG. Clinical correlation is recommended. Sayra Joyner MD cc: [id number] TT: 12/09/2016 05:38:14 Confirmation # [id number] Dictation # [id number] david
[2016-12-09] MEDS: Insulin Regular 100 units/ml SC SCH ×2 (06:52→11:10)
[2016-12-09] MEDS: methIMAzole 5 MG TAB PO SCH (08:45)
--- NOTE | 2016-12-09 10:15 | CARD ---
APPROVED REPORT EXAM: Two-dimensional and M-mode echocardiogram with Doppler and color Doppler. Other Information Quality : FairRhythm : Atrial Fibrillation INDICATION CVA/TIA Atrial Fibrillation 2D DIMENSIONS IVSd1.13 (0.7-1.1cm)LVDd5.30 (3.9-5.9cm) PWd1.16 (0.7-1.1cm)IVSs0.99 (0.8-1.2cm) LVDs3.97 (2.5-4.0cm)FS (%) 25.1 % PWs1.21 (0.8-1.2cm) M-Mode DIMENSIONS Left Atrium (MM)5.16 (2.5-4.0cm)IVSd1.09 (0.7-1.1cm) Aortic Root2.94 (2.2-3.7cm)LVDd5.96 (4.0-5.6cm) Aortic Cusp Exc.1.99 (1.5-2.0cm)PWd1.06 (0.7-1.1cm) IVSs1.56 cmFS (%) 31 % LVDs4.10 (2.0-3.8cm)PWs1.39 cm Mitral Valve E/A ratio0.0 TDI E/Lateral E'0.0E/Medial E'0.0 LEFT VENTRICLE The left ventricle is normal size. There is normal left ventricular wall thickness. Left ventricle systolic function is normal. The Ejection Fraction is 60-65%. There is normal LV segmental wall motion. Pt has A Fib RIGHT VENTRICLE The right ventricle is normal size. There is normal right ventricular wall thickness. The right ventricular systolic function is normal. ATRIA The left atrium is mildly dilated. The right atrium size is normal. AORTIC VALVE The aortic valve is normal in structure and function. No aortic regurgitation is present. There is no aortic valvular stenosis. There is no aortic valvular vegetation. MITRAL VALVE The mitral valve is normal in structure and function. There is no evidence of mitral valve prolapse. There is no mitral valve stenosis. There is no mitral valve regurgitation noted. TRICUSPID VALVE The tricuspid valve is normal in structure and function. There is no tricuspid valve regurgitation noted. PULMONIC VALVE The pulmonary valve is normal in structure and function. There is no pulmonic valvular regurgitation. GREAT VESSELS The aortic root is normal in size. The IVC was not visualized. PERICARDIAL EFFUSION The pericardium appears normal. <Conclusion> The left ventricle is normal size. There is normal left ventricular wall thickness. There is normal LV segmental wall motion. Left ventricle systolic function is normal. The Ejection Fraction is 60-65%. The left atrium is mildly dilated.
[2016-12-09 12:12] VITALS: BP 130/91; RESP 12; TEMP 98.5; O2SAT 97
[2016-12-09] MEDS ORDERED: Digoxin 250 mcg (0.25 mg) Tab PO ONE (13:50)
--- NOTE | 2016-12-09 13:50 | CP.PCM.DIS ---
Provider - Provider Date of Admission: 12/03/16 15:26 Attending physician: Andre Mir MD Consults: Neurology : Dr Joyner Neurosurgery : Dr Webber Time Spent in preparation of Discharge (in minutes): 30 Diagnosis - Discharge Diagnosis (1) Intracerebral hemorrhage Status: Acute (2) History of CVA (cerebrovascular accident) Status: Chronic (3) Hemiplegia affecting dominant side Status: Chronic (4) Atrial fibrillation Status: Chronic (5) Chest pain Status: Acute (6) DM type 2 (diabetes mellitus, type 2) Status: Chronic (7) HTN (hypertension) Status: Chronic (8) Hyperlipidemia Status: Chronic (9) Hyperthyroidism Status: Chronic (10) Cirrhosis of liver Status: Chronic (11) Prophylactic measure Status: Acute Hospital Course - Lab Results Lab Results: Micro Results 12/03/16 22:07 Urine,Ellis Urine Culture - Final No Growth (<1,000 CFU/ML) Most Recent Lab Values WBC 4.0 K/uL (4.8-10.8) L 12/07/16 04:30 RBC 4.42 Mil/uL (3.80-5.20) 12/07/16 04:30 Hgb 12.9 g/dL (12.0-16.0) 12/07/16 04:30 Hct 38.2 % (34.0-47.0) 12/07/16 04:30 MCV 86.4 fl (81.0-99.0) D 12/07/16 04:30 MCH 29.1 pg (27.0-31.0) 12/07/16 04:30 MCHC 33.7 g/dL (33.0-37.0) 12/07/16 04:30 RDW 17.5 % (11.5-14.5) H 12/07/16 04:30 Plt Count 151 K/uL (130-400) 12/07/16 04:30 MPV 9.4 fl (7.2-11.7) 12/04/16 05:53 Neut % (Auto) 55.5 % (50.0-75.0) 12/04/16 05:53 Lymph % (Auto) 32.0 % (20.0-40.0) 12/04/16 05:53 Archuleta % (Auto) 9.2 % (0.0-10.0) 12/04/16 05:53 Eos % (Auto) 2.6 % (0.0-4.0) 12/04/16 05:53 Baso % (Auto) 0.7 % (0.0-2.0) 12/04/16 05:53 Neut # 2.2 K/uL (1.8-7.0) 12/04/16 05:53 Lymph # 1.3 K/uL (1.0-4.3) 12/04/16 05:53 Archuleta # 0.4 K/uL (0.0-0.8) 12/04/16 05:53 Eos # 0.1 K/uL (0.0-0.7) 12/04/16 05:53 Baso # 0.0 K/uL (0.0-0.2) 12/04/16 05:53 ESR 48 mm/hr (0-30) H 12/05/16 04:50 D-Dimer, Quantitative 0.55 mg/L FEU (0-0.50) H 12/03/16 20:35 Sodium 142 mmol/l (132-148) 12/07/16 04:30 Potassium 4.3 MMOL/L (3.6-5.0) 12/07/16 04:30 Chloride 105 mmol/L (98-107) 12/07/16 04:30 Carbon Dioxide 24 mmol/L (22-30) 12/07/16 04:30 Anion Gap 17 (10-20) 12/07/16 04:30 BUN 16 mg/dl (7-17) 12/07/16 04:30 Creatinine 0.6 mg/dL (0.7-1.2) L 12/07/16 04:30 Est GFR ( Amer) > 60 12/07/16 04:30 Est GFR (Non-Af Amer) > 60 12/07/16 04:30 POC Glucose (mg/dL) 172 mg/dL (65-110) H 12/09/16 11:08 Random Glucose 133 mg/dL (65-105) H 12/07/16 04:30 Hemoglobin A1c 5.8 % (4.2-6.5) 12/03/16 20:35 Uric Acid 5.0 mg/Dl (2.2-7.5) 12/05/16 04:50 Calcium 9.3 mg/dL (8.4-10.2) 12/07/16 04:30 Phosphorus 4.4 mg/dl (2.5-4.5) 12/04/16 05:53 Magnesium 1.6 MG/DL (1.6-2.3) 12/04/16 05:53 Total Bilirubin 2.1 mg/dl (0.2-1.3) H 12/07/16 04:30 AST 86 U/L (14-36) H D 12/07/16 04:30 ALT 27 U/L (9-52) 12/07/16 04:30 Alkaline Phosphatase 101 U/L (38-126) 12/07/16 04:30 Troponin I < 0.0120 ng/mL (0.00-0.120) 12/04/16 05:53 C-React Prot High Sens 5.52 mg/L (1.00-3.00) H 12/05/16 04:50 NT-Pro-B Natriuret Pep 769 pg/ml (0-900) 12/03/16 18:32 Total Protein 6.8 G/DL (6.3-8.2) 12/07/16 04:30 Albumin 3.0 g/dL (3.5-5.0) L 12/07/16 04:30 Globulin 3.8 gm/dL (2.2-3.9) 12/07/16 04:30 Albumin/Globulin Ratio 0.8 (1.0-2.1) L 12/07/16 04:30 Triglycerides 90 mg/DL (0-149) 12/04/16 05:53 Cholesterol 103 mg/dL (0-199) 12/04/16 05:53 LDL Cholesterol Direct 46 mg/dL (0-129) 12/04/16 05:53 HDL Cholesterol 35 MG/DL (30-70) 12/04/16 05:53 Lipase 136 U/L (23-300) 12/03/16 12:10 Vitamin B12 < 159 pg/mL (239-931) L 12/05/16 04:50 25-OH Vitamin D Total 14.3 NG/ML (30.0-100.0) L 12/05/16 04:50 Thyroxine (T4) 10.0 ug/dl (5.5-11.0) 12/03/16 20:35 TSH 3rd Generation 5.68 mIU/ML (0.46-4.68) H 12/03/16 20:35 Urine Color Merary (YELLOW) 12/03/16 22:07 Urine Clarity Cloudy (Clear) 12/03/16 22:07 Urine pH 5.0 (5.0-8.0) 12/03/16 22:07 Ur Specific Dund[place] 1.039 (1.003-1.030) H 12/03/16 22:07 Urine Protein 100 mg/dL (NEGATIVE) 12/03/16 22:07 Urine Glucose (UA) Neg mg/dL (Normal) 12/03/16 22:07 Urine Ketones Trace mg/dL (NEGATIVE) 12/03/16 22:07 Urine Blood Negative (NEGATIVE) 12/03/16 22:07 Urine Nitrate Negative (NEGATIVE) 12/03/16 22:07 Urine Bilirubin Small (NEGATIVE) 12/03/16 22:07 Urine Urobilinogen 2.0 mg/dL (0.2-1.0) H 12/03/16 22:07 Ur Leukocyte Esterase Neg Vianney/uL (Negative) 12/03/16 22:07 Urine RBC (Auto) 3 /hpf (0-3) 12/03/16 22:07 Urine Microscopic WBC 2 /hpf (0-5) 12/03/16 22:07 Ur Squamous Epith Cells 3 /hpf (0-5) 12/03/16 22:07 Urine Bacteria Rare (<OCC) 12/03/16 22:07 Schistosoma Detection See note (Negative) 12/04/16 16:20 - Hospital Course Hospital Course: 61 y/oF with known Hx of HTN, Hyperthyroidism, DM, A Fib, CVA ( 1 month ago) with residual Right hemiparesis and aphasia, was brought in to the ED bec of chest pain and vomiting. At the ED, EKG showed A Fib . Troponin negative. CT of abd : Portal HTN / Cirrhosis. CT of the Head done showed : Linear acute hemorrhage in the left basal ganglia and posterior limb internal capsule and medial temporal lobe. Large cystic encephalomalacia in the left almonte radiata, frontal, temporal and parietal lobes and basal ganglia a sequela of left MCA territory infarction. Patient was admitted in ICU for close monitoring neurosurgery and neurology consulted and ASA and Eliquis discontinued.MRI of the brain ( poor quality film ) showed no acute pathology. Patient at present hemodynamically stable, with aphasia and right hemiparesis , maximum assist for ADL-s. PT/OT consulted- will d/c pt to Acute Rehab. 1. Acute Intra Cerebral hemorrhage neurologically stable with aphasia and right hemiparesis ( old defict from previous CVA) Neurosurgery consulted, Dr Webber : no surgical intervention Neurology consult with Dr Joyner Discontinued Eliquis and ASA MRI showed no acute pathology EEG: pending PT/OT, Speech consulted. Patient is maximum assist for ADL-s . d/c to Acute REhab 2. Atypical chest pain, ACS ruled out, prob musculoskeletal pain Trop x 3 negative Consult [employer] Dr. Napoles - not ACS no ASA cont statin, BB 3. History of CVA (cerebrovascular accident) with right hemiparesis and aphasia History of CVA with Right Arm and Right Leg Paralysis roughly 1 month ago treated at [facility] [place] Patient is also incontinent of urine and has expressive aphasia 4. Portal HTN/Liver Cirrhosis seen on CT unclear etiology Varices present with Portal HTN and Liver Cirrhosis is suspected: will need outpatient GI F/U as outpatient Schistosoma Ab- negative Further work up can be done as outpt 5 DM type 2 (diabetes mellitus, type 2), chronic controlled Metformin 500 mg PO HgBA1C 5.8 6. HTN (hypertension) controlled controlled on Metoprolol Tartrate 7. Atrial fibrillation with RVR Pt had episode of tachycardia with activity- was given IV Lopressor EKG shows A-fibrillation d/c Eliquis due to ICH Increase Metoprolol 50 mg bid Add Digoxin 0.25 mg PO x 1 now and then 0.125 mg daily ECHO: normal EF, no LV thrombus 8.Hyperthyroidism controlled on Methimazole 9. Hyperlipidemia Lipitor 40 mg PO QHS 10. Vitamin B12 deficiency started Vitamin B12 supplements 11. Vitamin D deficiency supplement with vitamin D PO 12. Prophylactic measure no anticoag due to ICH SCD Discharge Exam - Head Exam Head Exam: ATRAUMATIC, NORMAL INSPECTION, NORMOCEPHALIC - Eye Exam Eye Exam: EOMI, Normal appearance, PERRL Pupil Exam: NORMAL ACCOMODATION - Neck Exam Neck exam: Full Rom - Respiratory Exam Respiratory Exam: NORMAL BREATHING PATTERN. absent: Respiratory Distress - Cardiovascular Exam Cardiovascular Exam: Irregular Rhythm, +S1, +S2 - GI/Abdominal Exam GI & Abdominal Exam: Normal Bowel Sounds, Soft. absent: Tenderness - Extremities Exam Extremities exam: normal capillary refill, pedal pulses present - Back Exam Back exam: absent: CVA tenderness (L), CVA tenderness (R) - Neurological Exam Neurological exam: Alert Additional comments: aphasic follows simple commands Right Hemiparesis - Psychiatric Exam Psychiatric exam: Normal Affect, Normal Mood - Skin Skin Exam: Dry, Normal Color, Warm Discharge Plan - Follow Up Plan Condition: GOOD Disposition: REHAB FACILITY/REHAB UNIT Additional Instructions: d/c pt to Acute REhab Clinical Quality Measures - CQM - Stroke Antithrombotic Prescribed: Medical Contraindication Present Contranindication/Reason for not providing: Risk for Bleeding If Other selected, reason for not providing: ICH Anticoagulation Prescribed for Atrial Flutter, Atrial Fibrillation and History of:: Medical Contraindication Present Contranindication/Reason for not providing: Risk for Bleeding Other Contraindication/Reason for not providing: Intracerebral bleed Statin prescribed: Yes
[2016-12-09 14:02] VITALS: PULSE 95
[2016-12-09 15:00] VITALS: PULSE 98
[2016-12-10] MEDS ORDERED: Digoxin 125 mcg (0.125 mg) Tab PO SCH (09:00)
== END 2016-12-09 15:39 | DRG 810 ==
LOC: H.ER 11:27 → H.EROBSV 15:26 → OBSVTOIN 15:26 → H.ERHOLD 19:58 → H.ICU/CCU 22:02
PROVIDERS: ADMIT Family Medicine; ATTEND Family Medicine
PROC: 3E0234Z Introduction of Serum, Toxoid and Vaccine into Muscle, Percutaneous Approach (ICD-10-PCS; principal; 2016-12-04)
DX: I61.9 Nontraumatic intracerebral hemorrhage, unspecified (principal); K76.6 Portal hypertension; G93.89 Other specified disorders of brain; I48.2 Chronic atrial fibrillation; I69.351 Hemiplegia and hemiparesis following cerebral infarction affecting right dominant side; K74.60 Unspecified cirrhosis of liver; E05.90 Thyrotoxicosis, unspecified without thyrotoxic crisis or storm; E53.8 Deficiency of other specified B group vitamins; R32 Unspecified urinary incontinence; Z79.01 Long term (current) use of anticoagulants; I10 Essential (primary) hypertension; E55.9 Vitamin D deficiency, unspecified; Z23 Encounter for immunization; E11.9 Type 2 diabetes mellitus without complications; E78.5 Hyperlipidemia, unspecified; R07.89 Other chest pain; I69.320 Aphasia following cerebral infarction; K59.00 Constipation, unspecified; I69.322 Dysarthria following cerebral infarction

== ENCOUNTER 2016-12-09 15:39 | Inpatient (IN) | payer OTHER ==
[2016-12-09] MEDS ORDERED: Ergocalciferol 50,000 Intl Units Cap PO SCH (16:30)
[2016-12-09] MEDS: Insulin Regular 100 units/ml SC SCH ×2 (18:00→21:14)
[2016-12-10] MEDS: Insulin Regular 100 units/ml SC SCH ×4 (06:57→21:35)
[2016-12-10 08:12] LABS: HEMATOCRIT 35.5 % (34.0-47.0); MEAN CORPUSCULAR HEMOGLOBIN 29.2 pg (27.0-31.0); MEAN CORPUSCULAR HGB CONC 34.8 g/dL (33.0-37.0); RED CELL DISTRIBUTION WIDTH 17.5 % (11.5-14.5); WHITE BLOOD COUNT 3.6 K/uL (4.8-10.8)
[2016-12-10 08:18] LABS: ALB/GLOB RATIO 0.9 (1.0-2.1); ALKALINE PHOSPHATASE 98 U/L (38-126); ALT/SGPT 29 U/L (9-52); AST/SGOT 26 U/L (14-36); BILIRUBIN,TOTAL 1.6 mg/dl (0.2-1.3); BLOOD UREA NITROGEN 14 mg/dl (7-17); CALCIUM 8.9 mg/dL (8.4-10.2); CARBON DIOXIDE 28 mmol/L (22-30); CHLORIDE 101 mmol/L (98-107); GFR AFRICAN-AMERICAN > 60; GLUCOSE,RANDOM 122 mg/dL (65-105); POTASSIUM 4.1 MMOL/L (3.6-5.0); SODIUM 136 mmol/l (132-148); TOTAL PROTEIN 6.3 G/DL (6.3-8.2)
[2016-12-10] MEDS: Digoxin 125 mcg (0.125 mg) Tab PO SCH (08:24)
[2016-12-10] MEDS: methIMAzole 5 MG TAB PO SCH (08:24)
[2016-12-10 08:29] LABS: MEAN CELL VOLUME 84.1 fl (81.0-99.0)
--- NOTE | 2016-12-10 10:28 | CP.PCM.HP ---
History of Present Illness - History of Present Illness History of Present Illness: Chief Complaint : transferred to Acute Rehab for further Physical , Occupational and Speech therapy post ICH HPI: 61 y/o lady with known Hx of HTN, Hyperthyroidism, DM, A Fib, and CVA ( 1 month ago) with residual Right hemiparesis and aphasia, was admitted to [facility] ICU for Intracerebral Bleed. The patient was diagnosed with CVA w/ residual right Hemiparesis and aphasia about 1 month prior to admission at [facility] [place]. She was found to have A Fib then and was started on anticoagulant - Eliquis. She was discharged home post CVA ( did not received inpt Rehab nor Home PT) and required maximal assist with ADLs. Pt was admitted for Chest Pain and ACS was ruled out. CT of the head was done and this revealed Intracerebral Bleed. No new neurologic deficit noted. ASA and Eliquis were discontinued. Neurosurgery was consulted ( Dr Webber ) and he did not recommend any surgical intervention. For her A Fib, her HR was controlled on Beta rober -(Metoprolol) and Digoxin was started. She was d/c to Acute Rehab for further therapy. CT of the Head : Linear acute hemorrhage in the left basal ganglia and posterior limb internal capsule and medial temporal lobe. Large cystic encephalomalacia in the left almonte radiata, frontal, temporal and parietal lobes and basal ganglia a sequela of left MCA territory infarction. Full Code Surrogate decision maker - daughter Sabina Present on Admission - Present on Admission Any Indicators Present on Admission: No Review of Systems - Review of Systems Systems not reviewed;Unavailable: Language Barrier, Other (aphasia) All systems: reviewed and no additional remarkable complaints except - Constitutional Constitutional: absent: Fever, Headache - Cardiovascular Cardiovascular: absent: Chest Pain - Respiratory Respiratory: absent: Cough, Dyspnea - Gastrointestinal Gastrointestinal: absent: Abdominal Pain, Nausea, Vomiting Past Patient History - Infectious Disease Hx of Infectious Diseases: None - Tetanus Immunizations Tetanus Immunization: Unknown - Past Medical History & Family History Past Medical History?: Yes Past Family History: Reviewed and not pertinent - Past Social History Smoking Status: Never Smoked Chewing Tobacco Use: No Cigar Use: No Alcohol: None Drugs: Denies Home Situation {Lives}: With Family Domestic Violence: Negative - CARDIAC Hx Cardiac Disorders: Yes Hx Atrial Fibrillation: Yes Hx Hypertension: Yes - NEUROLOGICAL Hx Neurological Disorder: Yes HX Cerebrovascular Accident: Yes (Right Hemiparesis, Expressive Aphasia) - ENDOCRINE/METABOLIC Hx Diabetes Mellitus Type 2: Yes Hx Hyperthyroidism: Yes - HEMATOLOGICAL/ONCOLOGICAL Hx AIDS: No Hx Human Immunodeficiency Virus (HIV): No - GASTROINTESTINAL Other/Comment: Liver Cirrhosis - PSYCHIATRIC Hx Substance Use: No - SURGICAL HISTORY Hx Cholecystectomy: Yes - ANESTHESIA Hx Anesthesia: Yes Hx Anesthesia Reactions: No Meds Allergies/Adverse Reactions: Allergies Allergy/AdvReac Type Severity Reaction Status Date / Time No Known Allergies Allergy Verified 12/03/16 12:00 Physical Exam - Constitutional Appears: No Acute Distress, Other (nonverbal) - Head Exam Head Exam: NORMAL INSPECTION, NORMOCEPHALIC - Eye Exam Eye Exam: EOMI, Normal appearance, PERRL Pupil Exam: NORMAL ACCOMODATION - ENT Exam ENT Exam: Normal External Ear Exam - Neck Exam Neck exam: Positive for: Full Rom. Negative for: Meningismus - Respiratory Exam Respiratory Exam: NORMAL BREATHING PATTERN. absent: Rales, Wheezes, Respiratory Distress - Cardiovascular Exam Cardiovascular Exam: Irregular Rhythm, +S1, +S2 - GI/Abdominal Exam GI & Abdominal Exam: Normal Bowel Sounds, Soft. absent: Tenderness - Extremities Exam Extremities exam: Positive for: normal capillary refill, pedal pulses present. Negative for: calf tenderness, pedal edema - Back Exam Back exam: absent: CVA tenderness (L), CVA tenderness (R) - Neurological Exam Neurological exam: Alert Additional comments: aphasic follows simple commands Right Hemiparesis - Psychiatric Exam Psychiatric exam: Normal Affect, Normal Mood - Skin Skin Exam: Dry, Normal Color, Warm Results - Vital Signs Recent Vital Signs: Last Vital Signs Temp 97.9 F 12/10/16 08:16 Pulse 83 12/10/16 08:24 Resp 19 12/10/16 08:16 BP 128/79 12/10/16 08:24 Pulse Ox 98 12/10/16 08:16 - Labs Result Diagrams: 12/10/16 07:43 12/10/16 07:43 Labs: Laboratory Results - last 24 hr 12/09/16 12/09/16 12/10/16 17:49 21:04 05:54 WBC RBC Hgb Hct MCV MCH MCHC RDW Plt Count Sodium Potassium Chloride Carbon Dioxide Anion Gap BUN Creatinine Est GFR ( Amer) Est GFR (Non-Af Amer) POC Glucose (mg/dL) 138 H 124 H 134 H Random Glucose Calcium Total Bilirubin AST ALT Alkaline Phosphatase Total Protein Albumin Globulin Albumin/Globulin Ratio 12/10/16 12/10/16 07:43 07:43 WBC 3.6 L RBC 4.22 Hgb 12.3 Hct 35.5 MCV 84.1 D MCH 29.2 MCHC 34.8 RDW 17.5 H Plt Count 132 Sodium 136 Potassium 4.1 Chloride 101 Carbon Dioxide 28 Anion Gap 11 BUN 14 Creatinine 0.5 L Est GFR ( Amer) > 60 Est GFR (Non-Af Amer) > 60 POC Glucose (mg/dL) Random Glucose 122 H Calcium 8.9 Total Bilirubin 1.6 H AST 26 ALT 29 Alkaline Phosphatase 98 Total Protein 6.3 Albumin 2.9 L Globulin 3.4 Albumin/Globulin Ratio 0.9 L Assessment & Plan (1) Intracerebral hemorrhage Status: Acute (2) Hemiplegia affecting dominant side Status: Chronic (3) History of CVA (cerebrovascular accident) Status: Chronic (4) Atrial fibrillation Status: Chronic (5) Cirrhosis of liver Status: Chronic (6) DM type 2 (diabetes mellitus, type 2) Status: Chronic (7) HTN (hypertension) Status: Chronic (8) Hyperthyroidism Status: Chronic (9) Prophylactic measure Status: Acute (10) Alteration in skin integrity due to moisture Status: Chronic - Assessment and Plan (Free Text) Assessment: 61 y/o lady with hx of HTN, A Fib on anticoagulant , Hyperthyroidism, DM, and Hx of CVA with residual Right Hemiparesis and aphasia , transferred to Acute Rehab post Intracerebral Bleed for further PT/OT and Speech therapy. 1. Acute Intra Cerebral hemorrhage Neurosurgery was consulted, Dr Webber : no surgical intervention Off Eliquis and ASA PT/OT/Speech consult Physiatry consult 2. History of CVA (cerebrovascular accident) with residual right hemiparesis and aphasia off ASA cont Statin PT/OT/Speech therapy 3. Portal HTN/Liver Cirrhosis seen on CT unclear etiology Varices present with Portal HTN Schistosoma Ab- negative Hep screen and Ferritin level Further work up can be done as outpt 4. DM type 2 (diabetes mellitus, type 2), chronic controlled Metformin 500 mg PO HgBA1C 5.8 5. HTN (hypertension) controlled controlled on Metoprolol Tartrate 6. Atrial fibrillation with RVR ECHO: normal EF, no LV thrombus off Eliquis- will discuss with Dr Joyner when pt can be restarted on anticoag cont Metoprolol and Digoxin 7. Hyperthyroidism controlled on Methimazole TSH normal 8. Hyperlipidemia Lipitor 40 mg PO QHS 9. Vitamin B12 deficiency Vitamin B12 supplement 10. Vitamin D deficiency supplement with vitamin D PO 11. Moisture Associated Skin Integrity Alteration ( POA) Wound Care Sacral area small shallow ulcer 12. Prophylactic measure no anticoag due to ICH SCD,TEDS Decision To Admit - Pt Status Changed To: Hospital Disposition Of: Inpatient - Admit Certification Admit to Inpatient:: After my assessment, the patient will require hospitalization for at least two midnights. This is because of the severity of symptoms shown, intensity of services needed, and/or the medical risk in this patient being treated as an outpatient. - . Bed Request Type: Acute Rehab Admitting Physician: Mattie Camp
--- NOTE | 2016-12-10 13:56 | PN ---
DATE: 12/10/2016 Estimated length of stay for this patient is 2-3 weeks. REHABILITATION IMPAIRMENT: Problems with speech, balance, gait, strength. ETIOLOGICAL DIAGNOSIS: Right hemiplegia secondary to cerebrovascular accident, ICD code of 01.2. MEDICAL PROGNOSIS: Fair. INTERVENTIONS: For physical therapy, occupational therapy, recreational therapy and speech therapy. THERAPY GOALS: Supervision to contact guard for simple transfers, contact guard to min assist for co mplex transfers, supervision to contact guard for bed mobility, supervision and contact guard for upp er body ADLs, min to mod assist for lower body ADLs and contact guard to min assist for short distanc e ambulation. Further goals may be modified depending on patient's return of muscle strength. Functional outcome is good. No acute barriers noted for discharge. DISCHARGE DISPOSITION: To be discharged home with supportive services. Spencer Sanchez MD cc: [phone] TT: 12/10/2016 13:55:43 Confirmation # [id number] Dictation # [id number]
--- NOTE | 2016-12-10 14:02 | CON ---
DATE: 12/10/2016 The patient is a 61-year-old female who suffered a stroke and is admitted for acute inpatient rehab. The patient apparently had also suffered a previous stroke about a month ago and was at [facility]. The patient with right-sided weakness and with problems with aphasia, also history o f hypertension, diabetes, atrial fibrillation, hypothyroidism. SOCIAL HISTORY: No history of drinking, no history of smoking. FAMILY HISTORY: Noncontributory. ALLERGIES: No known allergies. FUNCTIONAL STATUS: The patient lives with the daughter, was previously independent, but since 1 ivan h since patient had a stroke, needs a lot of assistance. MEDICATIONS: As per medical physician. REVIEW OF SYSTEMS: The patient is alert, friendly, problems with aphasia. No other acute complaints at present. PHYSICAL EXAMINATION: VITAL SIGNS: Stable. NECK: Supple. CHEST: Symmetrical. HEART: Sounds S1, S2. ABDOMEN: Benign. EXTREMITIES: No clubbing, cyanosis, or edema. NEUROLOGIC: Right upper and right lower extremity: Tone is flaccid. Range of motion is limited. M uscle strength is 0-1. Sensations to pinprick, light touch intact. Deep tendon reflexes 2+ left upp er and left lower extremity, 1+ right upper, right lower extremity. Other systems are negative. SKIN: The patient does have an area in the sacral region which is 2.3 x 0.4 cm, which is moisture-re lated skin breakdown. Other systems are negative. IMPRESSION: Right hemiplegia secondary to cerebrovascular accident, history of hypertension, diabete s, atrial fibrillation, hypothyroidism. PLAN: Physical therapy, occupational therapy, recreational therapy, speech therapy for range of benedict on, strengthening, transfers, ambulation and gait training. Estimated length of stay for this patien t is 2 to 2-1/2 weeks. Anticipated discharge plan is to go back to live at home with supportive serv ices. Treatment plan for physical and occupational therapy, recreational and speech therapy. Goals for the patient: Independent to supervision for bed mobility, supervision to contact guard for simpl e transfers, contact guard to min assist for complex transfers, contact guard to min assist for short distance ambulation. Goals may be further modified depending on the patient's return of muscle stre ngth. Spencer Sanchez MD cc: [phone] TT: 12/10/2016 14:01:13 Confirmation # [id number] Dictation # [id number] tn
[2016-12-10 16:16] VITALS: BMI 32.7
[2016-12-11] MEDS: Insulin Regular 100 units/ml SC SCH ×4 (06:36→21:23)
[2016-12-11] MEDS: Digoxin 125 mcg (0.125 mg) Tab PO SCH (08:17)
[2016-12-11] MEDS: methIMAzole 5 MG TAB PO SCH (08:18)
[2016-12-12] MEDS: Insulin Regular 100 units/ml SC SCH ×4 (06:31→21:49)
[2016-12-12] MEDS: Digoxin 125 mcg (0.125 mg) Tab PO SCH (08:20)
[2016-12-12] MEDS: methIMAzole 5 MG TAB PO SCH (08:21)
--- NOTE | 2016-12-12 12:05 | CP.PCM.PN ---
Subjective - Date & Time of Evaluation Date of Evaluation: 12/11/16 Time of Evaluation: 16:00 - Subjective Subjective: patient with problems with aphasia, no acute problems noted Objective - Vital Signs/Intake and Output Vital Signs (last 24 hours): Temp Pulse Resp BP Pulse Ox 96.0 F L 82 20 131/74 97 12/12/16 08:27 12/12/16 08:27 12/12/16 08:27 12/12/16 08:27 12/12/16 08:27 - Medications Medications: Current Medications Atorvastatin Calcium (Lipitor) 40 mg PO HS [facility] Last Admin: 12/11/16 21:22 Dose: 40 mg Calcium Carbonate (Oscal) 500 mg PO BIDWM [facility] Last Admin: 12/12/16 08:20 Dose: 500 mg Digoxin (Lanoxin) 0.125 mg PO DAILY [facility] Last Admin: 12/12/16 08:20 Dose: 0.125 mg Docusate Sodium (Colace) 100 mg PO BID [facility] Last Admin: 12/12/16 08:21 Dose: 100 mg Ergocalciferol (Drisdol 50,000 Intl Units Cap) 1 cap PO Q7D [facility] Insulin Human Regular (Humulin R) 0 units SC [facility] PRN Reason: Protocol Last Admin: 12/12/16 11:27 Dose: Not Given Metformin HCl (Glucophage) 500 mg PO DAILY [facility] Last Admin: 12/12/16 08:21 Dose: 500 mg Methimazole (Tapazole) 5 mg PO DAILY [facility] Last Admin: 12/12/16 08:21 Dose: 5 mg Metoprolol Tartrate (Lopressor) 50 mg PO Q12 [facility] Last Admin: 12/12/16 08:21 Dose: 50 mg - Labs Labs: 12/10/16 07:43 12/10/16 07:43 - Head Exam Head Exam: ATRAUMATIC, NORMAL INSPECTION, NORMOCEPHALIC - Eye Exam Eye Exam: EOMI, Normal appearance Pupil Exam: NORMAL ACCOMODATION - ENT Exam ENT Exam: Mucous Membranes Moist, Normal Exam - Neck Exam Neck Exam: Normal Inspection - Respiratory Exam Respiratory Exam: NORMAL BREATHING PATTERN - Cardiovascular Exam Cardiovascular Exam: REGULAR RHYTHM - GI/Abdominal Exam GI & Abdominal Exam: Normal Bowel Sounds - Rectal Exam Rectal Exam: NORMAL INSPECTION - Exam Speculum exam: NORMAL SPECULUM EXAM - Extremities Exam Extremities Exam: Normal Capillary Refill, Normal Inspection - Back Exam Back Exam: NORMAL INSPECTION - Neurological Exam Neurological Exam: Alert, Awake Neuro motor strength exam: Left Upper Extremity: 4, Right Upper Extremity: 2/1, Left Lower Extremity: 4, Right Lower Extremity: 2/1 - Psychiatric Exam Psychiatric exam: Normal Affect, Normal Mood - Skin Skin Exam: Dry, Normal Color Assessment and Plan (1) Chest pain Status: Acute (2) Intracerebral hemorrhage Status: Acute (3) Left hemiplegia Assessment & Plan: plan for physical, occupational, rec and speech therapy Status: Acute (4) Prophylactic measure Status: Acute (5) Atrial fibrillation Status: Chronic (6) Cirrhosis of liver Status: Chronic
[2016-12-13] MEDS: Insulin Regular 100 units/ml SC SCH ×4 (06:32→21:21)
[2016-12-13] MEDS: Ergocalciferol 50,000 Intl Units Cap PO SCH (09:12)
[2016-12-13] MEDS: Digoxin 125 mcg (0.125 mg) Tab PO SCH (09:13)
[2016-12-13] MEDS: methIMAzole 5 MG TAB PO SCH (09:14)
--- NOTE | 2016-12-13 12:18 | CP.PCM.PN ---
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 EKG in the ER showed Atrial Fibrillation. CT Abdomen/Pelvis showed Portal HTN/Liver Cirrhosis. CT Head showed linear acute hemorrhage in the left basal ganglia and posterior limb internal capsule and medial temporal lobe, large cystic encephalomalacia in the left almonte radiata/frontal/temporal/parietal lobes and basal ganglia sequela of Left MCA territory infarction. Patient was admitted to the ICU for close monitoring, neurosurgery and neurology consulted, and ASA and Eliquis discontinued. MRI of the brain ( poor quality film ) showed no acute pathology. Patient was then admitted to Acute Rehab at [facility] for PT/OT and further recovery on 12/10/16. ROS is not possible because of the expressive aphasia and patient does not shake her head yes or no. However, she is following commands on exam. Physical Exam - Constitutional Appears: Non-toxic, No Acute Distress - Head Exam Head Exam: ATRAUMATIC, NORMAL INSPECTION, NORMOCEPHALIC - Eye Exam Eye Exam: EOMI, Normal appearance, PERRL Pupil Exam: NORMAL ACCOMODATION, PERRL - ENT Exam ENT Exam: Mucous Membranes Moist, Normal Exam, Normal External Ear Exam, Normal Oropharynx Additional comments: Poor dentition - Neck Exam Neck exam: Positive for: Normal Inspection Additional comments: NO thyromegaly NO cervical lymphadenopathy - Respiratory Exam Respiratory Exam: Clear to Auscultation Bilateral, NORMAL BREATHING PATTERN Additional comments: NO R/R/W - Cardiovascular Exam Additional comments: Irregularly Irregular - GI/Abdominal Exam Additional comments: BSx4, Soft, NT, Central Obesity, NO HSM, NO guarding/rebound tenderness - Extremities Exam Additional comments: NO edema Capillary Refill is 2 seconds Pulses are strong and equal and irregular Right Anterior Lower Leg and Left Posterior Lower Leg have large skin patch that is brown - Neurological Exam Neurological exam: CN II-XII Intact Assessment and Plan: 1). Acute Intracranial Hemorrhage Hx of Aphasia with Right Side Hemiparesis Neurosurgery Dr. Webber: NO surgical intervention Neurologist Dr. Joyner has been reconsulted on 12/13/16 to determine when (or even if possible) to restart ASA and Eliquis, which are currently being held 2). Liver Cirrhosis/Portal HTN Further workup/follow up with GI as outpatient. 3). DM 2 HgBA1C is 5.8 on 12/03/16 Metformin 500 mg PO 1x/day Regular ISS Accuchecks Controlled 4). HTN Metoprolol Tartrate 50 mg PO 2x/day Controlled 5). Atrial Fibrillation Echocardiogram 12/08/16 is unremarkable Digoxin 0.125 mg PO 1x/day Rate is controlled ASA and Eliquis are being held secondary to cranial hemorrhage and awaiting further input from Neurology to see if they can be restarted 6). Hyperthyroidism Methimazole 5 mg PO 1x/day TSH 5.68 and T4 10 on 12/03/16 7). Hyperlipidemia LDL at 46 Therefore Lipitor 40 mg was decreased to 5 mg however smallest tablet is 10 mg and it could not be cut by pharmacy. Therefore Pravastatin 20 mg PO 1x/day was ordered 12/13/16. 8). Vitamin B12 Deficiency <159 on 12/05/16 1,000 mcg IM x 1 dose ordered 12/13/16 and this can be given monthly 9). Vitamin D Deficiency Ergocalciferol 50,000 Units 1 capsule PO once a week for 6 more weeks on Mondays 10). Sacral Ulcer Located inside upper buttock cheeks inferior to sacral triangle and appears to be Stage II NutraShield Ointment 3x/day 11). Prophylactic Measure Calcium Carbonate 500 mg PO 2x/day MW Colace 100 mg PO 2x/day Protonix 40 mg PO 1x/day for GI Prophylaxis NO anticoagulation for now considering history. SCDs for DVT Prophylaxis Objective - Vital Signs/Intake and Output Vital Signs (last 24 hours): Temp Pulse Resp BP Pulse Ox 97.3 F L 65 22 133/65 95 12/13/16 09:41 12/13/16 09:41 12/13/16 09:41 12/13/16 09:41 12/13/16 09:41 - Medications Medications: Current Medications Atorvastatin Calcium (Lipitor) 40 mg PO HS [facility] Last Admin: 12/12/16 21:48 Dose: 40 mg Calcium Carbonate (Oscal) 500 mg PO BIDWM [facility] Last Admin: 12/13/16 09:13 Dose: 500 mg Digoxin (Lanoxin) 0.125 mg PO DAILY [facility] Last Admin: 12/13/16 09:13 Dose: 0.125 mg Docusate Sodium (Colace) 100 mg PO BID [facility] Last Admin: 12/13/16 09:12 Dose: 100 mg Ergocalciferol (Drisdol 50,000 Intl Units Cap) 1 cap PO Q7D [facility] Last Admin: 12/13/16 09:12 Dose: 1 cap Insulin Human Regular (Humulin R) 0 units SC [facility] PRN Reason: Protocol Last Admin: 12/13/16 06:32 Dose: Not Given Metformin HCl (Glucophage) 500 mg PO DAILY [facility] Last Admin: 12/13/16 09:12 Dose: 500 mg Methimazole (Tapazole) 5 mg PO DAILY [facility] Last Admin: 12/13/16 09:14 Dose: 5 mg Metoprolol Tartrate (Lopressor) 50 mg PO Q12 [facility] Last Admin: 12/13/16 09:13 Dose: 50 mg - Labs Labs: 12/10/16 07:43 12/10/16 07:43
--- NOTE | 2016-12-13 15:22 | CP.PCM.PN ---
Subjective - Date & Time of Evaluation Date of Evaluation: 12/13/16 Time of Evaluation: 13:00 - Subjective Subjective: patient looking tired,no acute complaints of pain Objective - Vital Signs/Intake and Output Vital Signs (last 24 hours): Temp Pulse Resp BP Pulse Ox 97.3 F L 65 22 133/65 95 12/13/16 09:41 12/13/16 09:41 12/13/16 09:41 12/13/16 09:41 12/13/16 09:41 - Medications Medications: Current Medications Calcium Carbonate (Oscal) 500 mg PO BIDWM [facility] Last Admin: 12/13/16 09:13 Dose: 500 mg Digoxin (Lanoxin) 0.125 mg PO DAILY [facility] Last Admin: 12/13/16 09:13 Dose: 0.125 mg Docusate Sodium (Colace) 100 mg PO BID [facility] Last Admin: 12/13/16 09:12 Dose: 100 mg Ergocalciferol (Drisdol 50,000 Intl Units Cap) 1 cap PO Q7D [facility] Last Admin: 12/13/16 09:12 Dose: 1 cap Insulin Human Regular (Humulin R) 0 units SC [facility] PRN Reason: Protocol Last Admin: 12/13/16 12:17 Dose: Not Given Metformin HCl (Glucophage) 500 mg PO DAILY [facility] Last Admin: 12/13/16 09:12 Dose: 500 mg Methimazole (Tapazole) 5 mg PO DAILY [facility] Last Admin: 12/13/16 09:14 Dose: 5 mg Metoprolol Tartrate (Lopressor) 50 mg PO Q12 [facility] Last Admin: 12/13/16 09:13 Dose: 50 mg Pravastatin Sodium (Pravachol) 20 mg PO HS [facility] - Labs Labs: 12/10/16 07:43 12/10/16 07:43 - Head Exam Head Exam: ATRAUMATIC, NORMAL INSPECTION, NORMOCEPHALIC - Eye Exam Eye Exam: EOMI, Normal appearance, PERRL Pupil Exam: NORMAL ACCOMODATION - ENT Exam ENT Exam: Mucous Membranes Moist, Normal Exam - Respiratory Exam Respiratory Exam: NORMAL BREATHING PATTERN - Cardiovascular Exam Cardiovascular Exam: REGULAR RHYTHM - GI/Abdominal Exam GI & Abdominal Exam: Normal Bowel Sounds - Rectal Exam Rectal Exam: NORMAL INSPECTION - Exam External exam: NORMAL EXTERNAL EXAM - Extremities Exam Extremities Exam: Normal Capillary Refill - Back Exam Back Exam: NORMAL INSPECTION - Neurological Exam Neurological Exam: Alert, Awake Neuro motor strength exam: Left Upper Extremity: 2/1, Right Upper Extremity: 3, Left Lower Extremity: 2/1, Right Lower Extremity: 3 - Psychiatric Exam Psychiatric exam: Normal Affect, Normal Mood - Skin Skin Exam: Dry, Intact Assessment and Plan (1) Chest pain Status: Acute (2) Intracerebral hemorrhage Status: Acute (3) Left hemiplegia Assessment & Plan: physical, occupational, rec and speech therapy Status: Acute (4) Prophylactic measure Status: Acute (5) Atrial fibrillation Status: Chronic (6) Cirrhosis of liver Status: Chronic
[2016-12-13] MEDS: Pravastatin Sodium 20 MG TAB PO SCH (21:21)
[2016-12-14] MEDS: Insulin Regular 100 units/ml SC SCH ×4 (07:03→22:24)
[2016-12-14] MEDS: Digoxin 125 mcg (0.125 mg) Tab PO SCH (08:45)
[2016-12-14] MEDS: methIMAzole 5 MG TAB PO SCH (08:47)
--- NOTE | 2016-12-14 09:30 | CP.PCM.PN ---
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 EKG in the ER showed Atrial Fibrillation. CT Abdomen/Pelvis showed Portal HTN/Liver Cirrhosis. CT Head showed linear acute hemorrhage in the left basal ganglia and posterior limb internal capsule and medial temporal lobe, large cystic encephalomalacia in the left almonte radiata/frontal/temporal/parietal lobes and basal ganglia sequela of Left MCA territory infarction. Patient was admitted to the ICU for close monitoring, neurosurgery and neurology consulted, and ASA and Eliquis discontinued. MRI of the brain ( poor quality film ) showed no acute pathology. Patient was then admitted to Acute Rehab at [facility] for PT/OT and further recovery on 12/10/16. ROS is not possible because of the expressive aphasia and patient does not shake her head yes or no. However, she is following commands on exam. Physical Exam - Constitutional Appears: Non-toxic, No Acute Distress - Head Exam Head Exam: ATRAUMATIC, NORMAL INSPECTION, NORMOCEPHALIC - Eye Exam Eye Exam: EOMI, Normal appearance, PERRL Pupil Exam: NORMAL ACCOMODATION, PERRL - ENT Exam ENT Exam: Mucous Membranes Moist, Normal Exam, Normal External Ear Exam, Normal Oropharynx Additional comments: Poor dentition - Neck Exam Neck exam: Positive for: Normal Inspection Additional comments: NO thyromegaly NO cervical lymphadenopathy - Respiratory Exam Respiratory Exam: Clear to Auscultation Bilateral, NORMAL BREATHING PATTERN Additional comments: NO R/R/W - Cardiovascular Exam Additional comments: Irregularly Irregular - GI/Abdominal Exam Additional comments: BSx4, Soft, NT, Central Obesity, NO HSM, NO guarding/rebound tenderness - Extremities Exam Additional comments: NO edema Capillary Refill is 2 seconds Pulses are strong and equal and irregular Right Anterior Lower Leg and Left Posterior Lower Leg have large skin patch that is brown - Neurological Exam Neurological exam: CN II-XII Intact Assessment and Plan: 1). Acute Intracranial Hemorrhage Hx of Aphasia with Right Side Hemiparesis Neurosurgery Dr. Webber: NO surgical intervention Neurologist Dr. Joyner has been reconsulted on 12/13/16 to determine when (or even if possible) to restart ASA and Eliquis, which are currently being held 2). Liver Cirrhosis/Portal HTN Further workup/follow up with GI as outpatient. 3). DM 2 HgBA1C is 5.8 on 12/03/16 Metformin 500 mg PO 1x/day Regular ISS Accuchecks Controlled 4). HTN Metoprolol Tartrate 50 mg PO 2x/day Controlled 5). Atrial Fibrillation Echocardiogram 12/08/16 is unremarkable Digoxin 0.125 mg PO 1x/day Rate is controlled ASA and Eliquis are being held secondary to cranial hemorrhage and awaiting further input from Neurology to see if they can be restarted 6). Hyperthyroidism Methimazole 5 mg PO 1x/day TSH 5.68 and T4 10 on 12/03/16 7). Hyperlipidemia LDL at 46 Therefore Lipitor 40 mg was decreased to 5 mg however smallest tablet is 10 mg and it could not be cut by pharmacy. Therefore Pravastatin 20 mg PO 1x/day was ordered 12/13/16. 8). Vitamin B12 Deficiency <159 on 12/05/16 1,000 mcg IM x 1 dose ordered 12/13/16 and this can be given monthly 9). Vitamin D Deficiency Ergocalciferol 50,000 Units 1 capsule PO once a week for 6 more weeks on Mondays 10). Sacral Ulcer Located inside upper buttock cheeks inferior to sacral triangle and appears to be Stage II NutraShield Ointment 3x/day 11). Prophylactic Measure Calcium Carbonate 500 mg PO 2x/day MW Colace 100 mg PO 2x/day Protonix 40 mg PO 1x/day for GI Prophylaxis NO anticoagulation for now considering history. SCDs for DVT Prophylaxis Objective - Vital Signs/Intake and Output Vital Signs (last 24 hours): Temp Pulse Resp BP Pulse Ox 98.1 F 98 H 22 141/78 97 12/14/16 08:25 12/14/16 08:46 12/14/16 08:25 12/14/16 08:46 12/14/16 08:25 - Medications Medications: Current Medications Calcium Carbonate (Oscal) 500 mg PO BIDWM [facility] Last Admin: 12/14/16 08:46 Dose: 500 mg Digoxin (Lanoxin) 0.125 mg PO DAILY [facility] Last Admin: 12/14/16 08:45 Dose: 0.125 mg Docusate Sodium (Colace) 100 mg PO BID [facility] Last Admin: 12/14/16 08:45 Dose: 100 mg Ergocalciferol (Drisdol 50,000 Intl Units Cap) 1 cap PO Q7D [facility] Last Admin: 12/13/16 09:12 Dose: 1 cap Insulin Human Regular (Humulin R) 0 units SC [facility] PRN Reason: Protocol Last Admin: 12/14/16 07:03 Dose: Not Given Metformin HCl (Glucophage) 500 mg PO DAILY [facility] Last Admin: 12/14/16 08:46 Dose: 500 mg Methimazole (Tapazole) 5 mg PO DAILY [facility] Last Admin: 12/14/16 08:47 Dose: 5 mg Metoprolol Tartrate (Lopressor) 50 mg PO Q12 [facility] Last Admin: 12/14/16 08:46 Dose: 50 mg Pravastatin Sodium (Pravachol) 20 mg PO HS [facility] Last Admin: 12/13/16 21:21 Dose: 20 mg - Labs Labs: 12/10/16 07:43 12/10/16 07:43 - Neurological Exam Additional comments: Mental Status: Aphasic, saying only Imbu Expressive aphasia, may follow commands Cranial Nerves II to XII; Non Verbal Motor: Left Hemiplegia, paraplegia DTR 0/4 Toes are Up Going on the left Tone is inncreased on the left sensory: Reduced glove and stoke due to DM in both UEs and LEs Cerebellar: non cooperative Stature and Gait: Unable Assessment and Plan (1) Paraplegia Assessment & Plan: She is not moving both legs, in the ICU she was moving the Right leg. Status: Acute (2) Alteration in skin integrity due to moisture Status: Chronic (3) Abnormal computed tomography of abdomen and pelvis Status: Acute (4) Chest pain Status: Acute (5) Intracerebral hemorrhage Status: Acute (6) Left hemiplegia Status: Acute (7) Prophylactic measure Status: Acute (8) Atrial fibrillation Status: Chronic (9) Cirrhosis of liver Status: Chronic - Assessment and Plan (Free Text) Assessment: Continue PT, OT, ST, VS are Normal. The Patient had a previous CVA last [facility] at [facility]
--- NOTE | 2016-12-14 09:41 | CP.PCM.CON ---
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 EKG in the ER showed Atrial Fibrillation. CT Abdomen/Pelvis showed Portal HTN/Liver Cirrhosis. CT Head showed linear acute hemorrhage in the left basal ganglia and posterior limb internal capsule and medial temporal lobe, large cystic encephalomalacia in the left almonte radiata/frontal/temporal/parietal lobes and basal ganglia sequela of Left MCA territory infarction. Patient was admitted to the ICU for close monitoring, neurosurgery and neurology consulted, and ASA and Eliquis discontinued. MRI of the brain ( poor quality film ) showed no acute pathology. Patient was then admitted to Acute Rehab at [facility] for PT/OT and further recovery on 12/10/16. ROS is not possible because of the expressive aphasia and patient does not shake her head yes or no. However, she is following commands on exam. Physical Exam - Constitutional Appears: Non-toxic, No Acute Distress - Head Exam Head Exam: ATRAUMATIC, NORMAL INSPECTION, NORMOCEPHALIC - Eye Exam Eye Exam: EOMI, Normal appearance, PERRL Pupil Exam: NORMAL ACCOMODATION, PERRL - ENT Exam ENT Exam: Mucous Membranes Moist, Normal Exam, Normal External Ear Exam, Normal Oropharynx Additional comments: Poor dentition - Neck Exam Neck exam: Positive for: Normal Inspection Additional comments: NO thyromegaly NO cervical lymphadenopathy - Respiratory Exam Respiratory Exam: Clear to Auscultation Bilateral, NORMAL BREATHING PATTERN Additional comments: NO R/R/W - Cardiovascular Exam Additional comments: Irregularly Irregular - GI/Abdominal Exam Additional comments: BSx4, Soft, NT, Central Obesity, NO HSM, NO guarding/rebound tenderness - Extremities Exam Additional comments: NO edema Capillary Refill is 2 seconds Pulses are strong and equal and irregular Right Anterior Lower Leg and Left Posterior Lower Leg have large skin patch that is brown - Neurological Exam Neurological exam: CN II-XII Intact Assessment and Plan: 1). Acute Intracranial Hemorrhage Hx of Aphasia with Right Side Hemiparesis Neurosurgery Dr. Webber: NO surgical intervention Neurologist Dr. Joyner has been reconsulted on 12/13/16 to determine when (or even if possible) to restart ASA and Eliquis, which are currently being held 2). Liver Cirrhosis/Portal HTN Further workup/follow up with GI as outpatient. 3). DM 2 HgBA1C is 5.8 on 12/03/16 Metformin 500 mg PO 1x/day Regular ISS Accuchecks Controlled 4). HTN Metoprolol Tartrate 50 mg PO 2x/day Controlled 5). Atrial Fibrillation Echocardiogram 12/08/16 is unremarkable Digoxin 0.125 mg PO 1x/day Rate is controlled ASA and Eliquis are being held secondary to cranial hemorrhage and awaiting further input from Neurology to see if they can be restarted 6). Hyperthyroidism Methimazole 5 mg PO 1x/day TSH 5.68 and T4 10 on 12/03/16 7). Hyperlipidemia LDL at 46 Therefore Lipitor 40 mg was decreased to 5 mg however smallest tablet is 10 mg and it could not be cut by pharmacy. Therefore Pravastatin 20 mg PO 1x/day was ordered 12/13/16. 8). Vitamin B12 Deficiency <159 on 12/05/16 1,000 mcg IM x 1 dose ordered 12/13/16 and this can be given monthly 9). Vitamin D Deficiency Ergocalciferol 50,000 Units 1 capsule PO once a week for 6 more weeks on Mondays 10). Sacral Ulcer Located inside upper buttock cheeks inferior to sacral triangle and appears to be Stage II NutraShield Ointment 3x/day 11). Prophylactic Measure Calcium Carbonate 500 mg PO 2x/day MW Colace 100 mg PO 2x/day Protonix 40 mg PO 1x/day for GI Prophylaxis NO anticoagulation for now considering history. SCDs for DVT Prophylaxis Past Patient History - Infectious Disease Hx of Infectious Diseases: None - Tetanus Immunizations Tetanus Immunization: Unknown - Past Medical History & Family History Past Medical History?: Yes Past Family History: Reviewed and not pertinent - Past Social History Smoking Status: Never Smoked Chewing Tobacco Use: No Cigar Use: No Alcohol: None Drugs: Denies Home Situation {Lives}: With Family Domestic Violence: Negative - CARDIAC Hx Cardiac Disorders: Yes Hx Hypertension: Yes - NEUROLOGICAL HX Cerebrovascular Accident: Yes - ENDOCRINE/METABOLIC Hx Diabetes Mellitus Type 2: Yes - HEMATOLOGICAL/ONCOLOGICAL Hx AIDS: No Hx Human Immunodeficiency Virus (HIV): No - MUSCULOSKELETAL/RHEUMATOLOGICAL Hx Falls: Yes - GASTROINTESTINAL Other/Comment: Liver Cirrhosis - PSYCHIATRIC Hx Substance Use: No - SURGICAL HISTORY Hx Cholecystectomy: Yes - ANESTHESIA Hx Anesthesia: Yes Hx Anesthesia Reactions: No Meds Allergies/Adverse Reactions: Allergies Allergy/AdvReac Type Severity Reaction Status Date / Time No Known Allergies Allergy Verified 12/03/16 12:00 - Medications Medications: Current Medications Calcium Carbonate (Oscal) 500 mg PO BIDWM [facility] Last Admin: 12/14/16 08:46 Dose: 500 mg Digoxin (Lanoxin) 0.125 mg PO DAILY [facility] Last Admin: 12/14/16 08:45 Dose: 0.125 mg Docusate Sodium (Colace) 100 mg PO BID [facility] Last Admin: 12/14/16 08:45 Dose: 100 mg Ergocalciferol (Drisdol 50,000 Intl Units Cap) 1 cap PO Q7D [facility] Last Admin: 12/13/16 09:12 Dose: 1 cap Insulin Human Regular (Humulin R) 0 units SC ACHS [facility] PRN Reason: Protocol Last Admin: 12/14/16 07:03 Dose: Not Given Metformin HCl (Glucophage) 500 mg PO DAILY [facility] Last Admin: 12/14/16 08:46 Dose: 500 mg Methimazole (Tapazole) 5 mg PO DAILY [facility] Last Admin: 12/14/16 08:47 Dose: 5 mg Metoprolol Tartrate (Lopressor) 50 mg PO Q12 [facility] Last Admin: 12/14/16 08:46 Dose: 50 mg Pravastatin Sodium (Pravachol) 20 mg PO HS [facility] Last Admin: 12/13/16 21:21 Dose: 20 mg Physical Exam - Neurological Exam Additional comments: Mental status: Awake, alert, non verbal, saying only Ambu, Dysarthric, Expressive aphasia, and is smiley. Does not follow commands Cranial Nerves II to XII: Mild Left Facial Palsy UMNL Type Able to swallow, moving her eyes appropriately. Central Tongue Motor: Left side flaccid hemiparesis Paraplegia DTR 0/4 Toes are up going on the the left, equivocal. Cerebellum: Unable to assess Sensory: Peripheral sensory deficit in UEs and LEs and reduced sensation on left side. Stature and gait: Unable Results - Vital Signs Recent Vital Signs: Last Vital Signs Temp 98.1 F 12/14/16 08:25 Pulse 98 H 12/14/16 08:46 Resp 22 12/14/16 08:25 BP 141/78 12/14/16 08:46 Pulse Ox 97 12/14/16 08:25 - Labs Result Diagrams: 12/15/16 05:20 12/15/16 05:20 Labs: Laboratory Results - last 24 hr 12/13/16 12/13/16 12/13/16 11:59 16:00 20:41 POC Glucose (mg/dL) 136 H 113 H 122 H Assessment & Plan (1) Paraplegia Status: Acute (2) Alteration in skin integrity due to moisture Status: Chronic (3) Abnormal computed tomography of abdomen and pelvis Status: Acute (4) Chest pain Status: Acute (5) Intracerebral hemorrhage Status: Acute (6) Left hemiplegia Status: Acute (7) Prophylactic measure Status: Acute (8) Atrial fibrillation Status: Chronic (9) Cirrhosis of liver Status: Chronic
[2016-12-14] MEDS: Pravastatin Sodium 20 MG TAB PO SCH (21:56)
[2016-12-15] MEDS: Insulin Regular 100 units/ml SC SCH ×3 (06:44→22:17)
[2016-12-15 06:58] LABS: BASO % 1.1 % (0.0-2.0); EOS # 0.1 K/uL (0.0-0.7); EOS % 2.6 % (0.0-4.0); HEMATOCRIT 36.3 % (34.0-47.0); LYMPH # 1.5 K/uL (1.0-4.3); LYMPH % 38.7 % (20.0-40.0); MEAN CELL VOLUME 85.1 fl (81.0-99.0); MEAN CORPUSCULAR HEMOGLOBIN 29.3 pg (27.0-31.0); MEAN CORPUSCULAR HGB CONC 34.4 g/dL (33.0-37.0); MEAN PLATELET VOLUME 9.8 fl (7.2-11.7); MONO # 0.4 K/uL (0.0-0.8); MONO % 8.8 % (0.0-10.0); NEUT # 1.9 K/uL (1.8-7.0); NEUT % 48.8 % (50.0-75.0); NRBC % 0.1 % (0.0-0.0); RED CELL DISTRIBUTION WIDTH 17.2 % (11.5-14.5)
[2016-12-15 07:02] LABS: ALB/GLOB RATIO 0.9 (1.0-2.1); ALKALINE PHOSPHATASE 92 U/L (38-126); ALT/SGPT 32 U/L (9-52); AST/SGOT 24 U/L (14-36); BILIRUBIN,TOTAL 1.2 mg/dl (0.2-1.3); BLOOD UREA NITROGEN 18 mg/dl (7-17); CALCIUM 9.1 mg/dL (8.4-10.2); CARBON DIOXIDE 28 mmol/L (22-30); CHLORIDE 103 mmol/L (98-107); GFR AFRICAN-AMERICAN > 60; GLUCOSE,RANDOM 120 mg/dL (65-105); POTASSIUM 3.9 MMOL/L (3.6-5.0); SODIUM 138 mmol/l (132-148); TOTAL PROTEIN 6.4 G/DL (6.3-8.2)
[2016-12-15] MEDS: Digoxin 125 mcg (0.125 mg) Tab PO SCH (08:31)
[2016-12-15] MEDS: methIMAzole 5 MG TAB PO SCH (08:31)
--- NOTE | 2016-12-15 12:16 | PSY.TMCNF ---
Nursing - Vital Signs Vital Signs (Last 8 hours): Vital Signs 12/15/16 12/15/16 08:31 10:00 Temperature 98.2 F Pulse Rate 98 H 98 H Respiratory 22 Rate Blood Pressure 128/73 128/73 O2 Sat by Pulse 99 Oximetry Pain: 0 - Medications/Other Issues Comment: Pt at moderate nutritional risk. goals: 1. Pt to consume 75-100% of meals. 2. Blood glucoses to be between 70-180 mg/dl. Follow-up due on 2016 - Wound Sacrum Wound Type: Moisture Associated Skin Damage Wound Length: 2.3 Wound Width: 0.4 Tunneling: No Undermining: No Wound Bed Greatest Portion: Red (Granulation) Periwound: Intact Wound Drainage Amount: None Wound Drainage Odor: None/Absent Wound Dressing Status: Open to air - Bladder Management Bladder Pattern: Incontinent Voiding Method: Diaper - Bowel Management Bowel Pattern: Incontinent - Goals/Time Frame Comments: Pt was seen resting in bed and required verbal cues to keep eyes open. Attempted to meet with pt; however, pt presented with increase fatigue. As per pt's chart and TRANSPORT NURSE notes, pt presents with severe receptive and expressive aphasia. 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 Pt can point to objects although is inconsistent. Recreation therapist will attempt to continue to work with pt to determine leisure interests and needs as well as attempt to speak with family members to determine leisure interests and social history. Physical Therapy - Bed Mobility Bed Mobility: Maximum Assistance Comment: max A roll to R. dependent roll to L. Supine to sit mod/max A with bedrail. max A/dependent for sit to supine - Transfers Sit to Stand: Maximum Assistance, Dependent - Ambulation Assistive Devices: N/A - Stair Negotiation Stairs: Level of Assistance: Not Tested - Standing Balance Static Stand: Maximal Assistance Dynamic Stand: Unable to assess/perform - Pain Management Techniques: Position Change, Elevation - Insight/Carryover Insight/Carryover: Fair - Patient/Family Education Comment: -Ongoing for RUE management, adls/functional transfers/mobility, postural control/strength and endurance training. -Further training needed to improve carryover and improve overall function - Assessment/Plan Assessment: Pt participates in 1:1 recreation therapy sessions. Pt had participated in card color matching task and would continue to benefit from simple modifed leisure tasks. Plan to continue to attempt to meet with family to determine more of pt's leisure lifestyle and history. Pt will continue to benefit from participating in recreation therapy sessions. - Goals Timeframe: 8 days Goals: -FEEDING: Supervision/setup. -GROOMING: S/CSverbal cues after setup. - UPPER BODY SELF CARE: Mod/Max assist uisng holland-strategies. -LOWER BODY SELF CARE: Max assist and verbal cues with adaptive strategies. -TRANSFERS: with slide board with Moderate/Min assist and verbal cues <->bed, commode, chair and shower chair towards L side. -TRANSFERS/squat pivot transfers<->bed, commode, chair and shower chair with Mod/max assist and verbal cues towards L side. - SUPINE<->SIT: Moderate assist and verbal cues 100% of time. -Roll to R SIDE with Min assist and verbal uces and to L SIDE with Modassist and verbal cues for pressure relief. -CAREGIVER ED: To assist with adls/transfers/bed mobility with assistance/supervision from rehab staff. -W/C MANAGEMENT: propel w/c 50 feet with Min assist and verbal cues using LUE to push/LLE to steer w/c. - Functional sit<->stand with Mod assist and verbal cues for caregiver to assist with toileting/Lower body adls and pressure relief - Provider License Number: [id number] Occupational Therapy - Arousal/Attention/Orientation Patient Orientation: Person - ADL/IADL Self Feeding: Minimal Assistance, Moderate Assistance Grooming: Moderate Assistance Bathing-Upper Extremity: Verbal Cues, Set-up Help, Maximum Assistance Bathing-Lower Extremity: Dependent Dressing-Upper Extremity: Verbal Cues, Set-up Help, Maximum Assistance Dressing-Lower Extremity: Dependent Homemaking: Not Applicable - Sitting Balance Static Sitting: Supervision Dynamic Sitting: Minimal Assistance Comment: @ edge of bed - Transfers Wheelchair to Bed Transfers: Moderate Assistance, Maximum Assistance Toilet Transfers: Verbal Cues, Set-up Help, Maximum Assistance Comment: shower chair with max/total assist because of slippery surfaces - Wheelchair Management Level of Assistance: Dependent Distance (ft.): 0 - Upper Extremity Status Right Upper Extremity Comment: PROM t/o RUE limited with shldr ER and elbow flexion muscle tightness. *PROM WFL t/o elbow and hand. Pt noted with increased flexor tone at rest Left Upper Extremity Comment: AROM is WNLS - Pain Alleviating Techniques: Position Change, Elevation - Insight/Carryover Insight/Carryover: Fair - Patient/Family Education Comment: -Ongoing for RUE management, adls/functional transfers/mobility, postural control/strength and endurance training. -Further training needed to improve carryover and improve overall function - Assessment/Plan Assessment: Pt participates in 1:1 recreation therapy sessions. Pt had participated in card color matching task and would continue to benefit from simple modifed leisure tasks. Plan to continue to attempt to meet with family to determine more of pt's leisure lifestyle and history. Pt will continue to benefit from participating in recreation therapy sessions. - Goals Timeframe: 8 days Goals: -FEEDING: Supervision/setup. -GROOMING: S/CSverbal cues after setup. - UPPER BODY SELF CARE: Mod/Max assist uisng holland-strategies. -LOWER BODY SELF CARE: Max assist and verbal cues with adaptive strategies. -TRANSFERS: with slide board with Moderate/Min assist and verbal cues <->bed, commode, chair and shower chair towards L side. -TRANSFERS/squat pivot transfers<->bed, commode, chair and shower chair with Mod/max assist and verbal cues towards L side. - SUPINE<->SIT: Moderate assist and verbal cues 100% of time. -Roll to R SIDE with Min assist and verbal uces and to L SIDE with Modassist and verbal cues for pressure relief. -CAREGIVER ED: To assist with adls/transfers/bed mobility with assistance/supervision from rehab staff. -W/C MANAGEMENT: propel w/c 50 feet with Min assist and verbal cues using LUE to push/LLE to steer w/c. - Functional sit<->stand with Mod assist and verbal cues for caregiver to assist with toileting/Lower body adls and pressure relief - Provider Therapist: Briseyda López OTR/L License Number: [id number] Speech Therapy - Consult Information Patient on Program: Yes Medical Diagnosis: CVA - Assessment Expressive Language Impairment: Severe Receptive Language Impairment: Severe Comment: moderate-severe - Plan Assessment: Pt participates in 1:1 recreation therapy sessions. Pt had participated in card color matching task and would continue to benefit from simple modifed leisure tasks. Plan to continue to attempt to meet with family to determine more of pt's leisure lifestyle and history. Pt will continue to benefit from participating in recreation therapy sessions. - Provider Therapist: Emma Simon License Number: [id number] Recreational Therapy - Participation Participation: Participates in Individual and/or Group Sessions - Attendance Attendance: 3-5 times per week - Activities Leisure Activities: Cards and Games - Socialization Level of Socialization: Minimal or no response - Assessment Assessment/Plan: Pt participates in 1:1 recreation therapy sessions. Pt had participated in card color matching task and would continue to benefit from simple modifed leisure tasks. Plan to continue to attempt to meet with family to determine more of pt's leisure lifestyle and history. Pt will continue to benefit from participating in recreation therapy sessions. Problems Currently Limiting Participation: expressive and receptive aphasic, language barrier, decrease mobility, weakness, fatigue, decrease leisure awareness level Goals and Time Frame: Pt will be encouraged to participate in 1:1 and group recreation therapy sessions 3-5x week to improve command following, arousal level, and improve word finding. - Provider Therapist: Nisha Schaefer, RESIDENTIAL PROPERTY MANAGER #[id number] Nutrition - Current Diet Current Diet/ Supplement/ Feedings: Moderate consistent CHO heart healthy diet Prostat sugar free one per day. (100 kcal and 15 grams of protein) - Appetite Percent Meal Consumed: 75-100% - Assessment/Goals/Time Frame Assessment/Goals/Time Frame: Pt at moderate nutritional risk. goals: 1. Pt to consume 75-100% of meals. 2. Blood glucoses to be between 70-180 mg/dl. Follow-up due on 12/17/2016 - Provider Provider: Marie Larkin RD Case Management - Discharge Plan Discharge Plan: Home with significant other/family Rehabilitation Plan - Treatment Plan Treatment Plan: Physical Therapy, Occupational Therapy, Speech, Dietary, Patient /Family Education - Recommendation Recommendation: Physical Therapy, Occupational Therapy, Speech, Dietary, Patient /Family Education - Discharge Plan Discharge to: Home (01/02)
--- NOTE | 2016-12-15 14:57 | CP.PCM.PN ---
Subjective - Date & Time of Evaluation Date of Evaluation: 12/15/16 Time of Evaluation: 09:00 - Subjective Subjective: no acute complaints of pain. weakness of arm and leg Objective - Vital Signs/Intake and Output Vital Signs (last 24 hours): Temp Pulse Resp BP Pulse Ox 98.2 F 98 H 22 128/73 99 12/15/16 10:00 12/15/16 10:00 12/15/16 10:00 12/15/16 10:00 12/15/16 10:00 - Medications Medications: Current Medications Calcium Carbonate (Oscal) 500 mg PO BIDWM [facility] Last Admin: 12/15/16 08:31 Dose: 500 mg Digoxin (Lanoxin) 0.125 mg PO DAILY [facility] Last Admin: 12/15/16 08:31 Dose: 0.125 mg Docusate Sodium (Colace) 100 mg PO BID [facility] Last Admin: 12/15/16 08:30 Dose: 100 mg Ergocalciferol (Drisdol 50,000 Intl Units Cap) 1 cap PO Q7D [facility] Last Admin: 12/13/16 09:12 Dose: 1 cap Insulin Human Regular (Humulin R) 0 units SC 0630,2100 [facility] PRN Reason: Protocol Metformin HCl (Glucophage) 500 mg PO DAILY [facility] Last Admin: 12/15/16 08:31 Dose: 500 mg Methimazole (Tapazole) 5 mg PO DAILY [facility] Last Admin: 12/15/16 08:31 Dose: 5 mg Metoprolol Tartrate (Lopressor) 50 mg PO Q12 [facility] Last Admin: 12/15/16 08:31 Dose: 50 mg Pravastatin Sodium (Pravachol) 20 mg PO HS [facility] Last Admin: 12/14/16 21:56 Dose: 20 mg - Labs Labs: 12/15/16 05:20 12/15/16 05:20 - Head Exam Head Exam: ATRAUMATIC, NORMAL INSPECTION - Eye Exam Eye Exam: PERRL Pupil Exam: NORMAL ACCOMODATION - ENT Exam ENT Exam: Mucous Membranes Moist, Normal Exam - Neck Exam Neck Exam: Normal Inspection - Respiratory Exam Respiratory Exam: NORMAL BREATHING PATTERN - Cardiovascular Exam Cardiovascular Exam: REGULAR RHYTHM - GI/Abdominal Exam GI & Abdominal Exam: Soft - Exam External exam: NORMAL EXTERNAL EXAM - Extremities Exam Extremities Exam: Normal Capillary Refill - Back Exam Back Exam: NORMAL INSPECTION - Neurological Exam Neurological Exam: Alert, Awake Neuro motor strength exam: Left Upper Extremity: 2/1, Right Upper Extremity: 3, Left Lower Extremity: 2/1, Right Lower Extremity: 3 - Psychiatric Exam Psychiatric exam: Normal Affect, Normal Mood - Skin Skin Exam: Dry, Intact Assessment and Plan (1) Chest pain Status: Acute (2) Intracerebral hemorrhage Status: Acute (3) Left hemiplegia Assessment & Plan: plna for occupational, physical, rec therapy and speech therapy status post team and discussion with daughter Status: Acute (4) Prophylactic measure Status: Acute (5) Atrial fibrillation Status: Chronic (6) Cirrhosis of liver Status: Chronic
--- NOTE | 2016-12-15 18:54 | CP.PCM.PN ---
Subjective - Date & Time of Evaluation Date of Evaluation: 12/15/16 Time of Evaluation: 11:45 - Subjective Subjective: Pt seen and examined. Doing well and tolerating therapy. Objective - Vital Signs/Intake and Output Vital Signs (last 24 hours): Temp Pulse Resp BP Pulse Ox 98.2 F 81 22 128/73 98 12/15/16 16:45 12/15/16 16:45 12/15/16 16:45 12/15/16 16:45 12/15/16 16:07 - Medications Medications: Current Medications Calcium Carbonate (Oscal) 500 mg PO BIDWM [facility] Last Admin: 12/15/16 17:01 Dose: 500 mg Digoxin (Lanoxin) 0.125 mg PO DAILY [facility] Last Admin: 12/15/16 08:31 Dose: 0.125 mg Docusate Sodium (Colace) 100 mg PO BID [facility] Last Admin: 12/15/16 17:01 Dose: 100 mg Ergocalciferol (Drisdol 50,000 Intl Units Cap) 1 cap PO Q7D [facility] Last Admin: 12/13/16 09:12 Dose: 1 cap Insulin Human Regular (Humulin R) 0 units SC 0630,2100 [facility] PRN Reason: Protocol Metformin HCl (Glucophage) 500 mg PO DAILY [facility] Last Admin: 12/15/16 08:31 Dose: 500 mg Methimazole (Tapazole) 5 mg PO DAILY [facility] Last Admin: 12/15/16 08:31 Dose: 5 mg Metoprolol Tartrate (Lopressor) 50 mg PO Q12 [facility] Last Admin: 12/15/16 08:31 Dose: 50 mg Pravastatin Sodium (Pravachol) 20 mg PO HS [facility] Last Admin: 12/14/16 21:56 Dose: 20 mg - Labs Labs: 12/15/16 05:20 12/15/16 05:20 - Constitutional Appears: No Acute Distress - Head Exam Head Exam: ATRAUMATIC - Eye Exam Eye Exam: absent: Scleral icterus - ENT Exam ENT Exam: Mucous Membranes Moist - Neck Exam Neck Exam: absent: Meningismus - Respiratory Exam Respiratory Exam: absent: Rhonchi, Wheezes, Respiratory Distress - Cardiovascular Exam Cardiovascular Exam: REGULAR RHYTHM, +S1, +S2 - GI/Abdominal Exam GI & Abdominal Exam: Soft. absent: Tenderness - Rectal Exam Rectal Exam: Deferred - Neurological Exam Neurological Exam: Alert, Oriented x3 - Psychiatric Exam Psychiatric exam: Normal Affect - Skin Skin Exam: Dry, Intact Assessment and Plan (1) Intracerebral hemorrhage Status: Acute (2) Hemiplegia affecting dominant side Status: Chronic (3) History of CVA (cerebrovascular accident) Status: Chronic (4) Atrial fibrillation Status: Chronic (5) Cirrhosis of liver Status: Chronic (6) DM type 2 (diabetes mellitus, type 2) Status: Chronic (7) HTN (hypertension) Status: Chronic (8) Hyperthyroidism Status: Chronic - Assessment and Plan (Free Text) Assessment: 61 yo female with history of HTN, A Fib, Hyperthyroidism, DM, and 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 1. Acute Intra Cerebral hemorrhage Neurosurgery on consult, Dr Webber: recommended no surgical intervention Off Eliquis and ASA PT/OT/Speech consult Physiatry consult 2. History of CVA (cerebrovascular accident) with residual right hemiparesis and aphasia off ASA continue statin PT/OT/Speech therapy 3. 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 DM type 2 (diabetes mellitus, type 2), chronic BS controlled Metformin 500 mg PO daily HgBA1C 5.8 5. HTN (hypertension) controlled BP stable continue Metoprolol Tartrate 6. Atrial fibrillation with RVR HR controlled ECHO: normal EF, no LV thrombus off Eliquis - will check with Dr Joyner when pt can be restarted on anticoagulant continue Metoprolol and Digoxin 7. Hyperthyroidism continue Methimazole TSH normal 8. Hyperlipidemia Lipitor 40 mg PO HS 9. Vitamin B12 deficiency Vitamin B12 supplement
[2016-12-15] MEDS: Pravastatin Sodium 20 MG TAB PO SCH (22:17)
[2016-12-16] MEDS: Insulin Regular 100 units/ml SC SCH ×2 (06:44→21:08)
[2016-12-16] MEDS: Digoxin 125 mcg (0.125 mg) Tab PO SCH (08:22)
[2016-12-16] MEDS: methIMAzole 5 MG TAB PO SCH (08:23)
--- NOTE | 2016-12-16 20:55 | CP.PCM.PN ---
Subjective - Date & Time of Evaluation Date of Evaluation: 12/16/16 Time of Evaluation: 16:00 - Subjective Subjective: no acute problems noted , patient with aphasia Objective - Vital Signs/Intake and Output Vital Signs (last 24 hours): Temp Pulse Resp BP Pulse Ox 97.5 F L 97 H 20 126/74 98 12/16/16 08:22 12/16/16 09:25 12/16/16 08:22 12/16/16 08:23 12/16/16 09:25 - Medications Medications: Current Medications Calcium Carbonate (Oscal) 500 mg PO BIDWM [facility] Last Admin: 12/16/16 17:30 Dose: 500 mg Digoxin (Lanoxin) 0.125 mg PO DAILY [facility] Last Admin: 12/16/16 08:22 Dose: 0.125 mg Docusate Sodium (Colace) 100 mg PO BID [facility] Last Admin: 12/16/16 17:29 Dose: Not Given Ergocalciferol (Drisdol 50,000 Intl Units Cap) 1 cap PO Q7D [facility] Last Admin: 12/13/16 09:12 Dose: 1 cap Insulin Human Regular (Humulin R) 0 units SC 0630,2100 [facility] PRN Reason: Protocol Last Admin: 12/16/16 06:44 Dose: Not Given Metformin HCl (Glucophage) 500 mg PO DAILY [facility] Last Admin: 12/16/16 08:22 Dose: 500 mg Methimazole (Tapazole) 5 mg PO DAILY [facility] Last Admin: 12/16/16 08:23 Dose: 5 mg Metoprolol Tartrate (Lopressor) 50 mg PO Q12 [facility] Last Admin: 12/16/16 08:23 Dose: 50 mg Pravastatin Sodium (Pravachol) 20 mg PO HS [facility] Last Admin: 12/15/16 22:17 Dose: 20 mg - Labs Labs: 12/15/16 05:20 12/15/16 05:20 - Head Exam Head Exam: ATRAUMATIC, NORMAL INSPECTION, NORMOCEPHALIC - Eye Exam Eye Exam: Normal appearance Pupil Exam: NORMAL ACCOMODATION - ENT Exam ENT Exam: Mucous Membranes Moist, Normal Exam - Neck Exam Neck Exam: Normal Inspection - Respiratory Exam Respiratory Exam: NORMAL BREATHING PATTERN - Cardiovascular Exam Cardiovascular Exam: REGULAR RHYTHM - GI/Abdominal Exam GI & Abdominal Exam: Normal Bowel Sounds - Rectal Exam Rectal Exam: NORMAL INSPECTION - Exam External exam: NORMAL EXTERNAL EXAM - Extremities Exam Extremities Exam: Normal Capillary Refill, Normal Inspection - Back Exam Back Exam: NORMAL INSPECTION - Neurological Exam Neurological Exam: Alert, Awake Neuro motor strength exam: Left Upper Extremity: 2/1, Right Upper Extremity: 3, Left Lower Extremity: 2/1, Right Lower Extremity: 3 - Psychiatric Exam Psychiatric exam: Normal Affect - Skin Skin Exam: Dry, Normal Color Assessment and Plan (1) Chest pain Status: Acute (2) Intracerebral hemorrhage Status: Acute (3) Left hemiplegia Assessment & Plan: to continue with physical, occupational, rec and speech therapy upgrade diet when able Status: Acute (4) Prophylactic measure Status: Acute (5) Atrial fibrillation Status: Chronic (6) Cirrhosis of liver Status: Chronic
[2016-12-16] MEDS: Pravastatin Sodium 20 MG TAB PO SCH (21:07)
[2016-12-17] MEDS: Insulin Regular 100 units/ml SC SCH ×2 (07:17→21:40)
[2016-12-17] MEDS: Digoxin 125 mcg (0.125 mg) Tab PO SCH (08:43)
[2016-12-17] MEDS: methIMAzole 5 MG TAB PO SCH (08:46)
--- NOTE | 2016-12-17 12:40 | CP.PCM.PN ---
Subjective - Date & Time of Evaluation Date of Evaluation: 12/17/16 Time of Evaluation: 12:40 - Subjective Subjective: pt in PT doing well continues to grab according to staff, improving vitals stable no acute distress Objective - Vital Signs/Intake and Output Vital Signs (last 24 hours): Temp Pulse Resp BP Pulse Ox 98.2 F 91 H 20 118/72 98 12/17/16 08:09 12/17/16 08:42 12/17/16 08:09 12/17/16 08:42 12/17/16 08:09 GENERAL APPEARANCE: aphasic, 0/5 R side. alert and cooperative, and appears to be in no acute distress. HEENT: normocephalic, atraumatic PERRL, EOMI. Vision is grossly intact. External auditory canals clear, hearing grossly intact. No nasal discharge. Oral cavity and pharynx normal. No inflammation, swelling, exudate, or lesions. NECK: Neck supple, non-tender without lymphadenopathy, masses or thyromegaly. CARDIAC: Normal S1 and S2. No S3, S4 or murmurs. Rhythm is regular. LUNGS: Clear to auscultation and percussion without rales, rhonchi, wheezing or diminished breath sounds. ABDOMEN: Positive bowel sounds. Soft, nondistended, nontender. No guarding or rebound. No masses. BACK: Examination of the spine reveals no spinal deformity, symmetry of spinal muscles, EXTREMITIES: No significant deformity or joint abnormality. No edema. NEUROLOGICAL: Strength and sensation intact L side SKIN: Skin normal color, texture and turgor with no lesions or eruptions. PSYCHIATRIC: aphasic, difficult to assess - Medications Medications: Current Medications Calcium Carbonate (Oscal) 500 mg PO BIDWM [facility] Last Admin: 12/17/16 08:42 Dose: 500 mg Digoxin (Lanoxin) 0.125 mg PO DAILY [facility] Last Admin: 12/17/16 08:43 Dose: 0.125 mg Docusate Sodium (Colace) 100 mg PO BID [facility] Last Admin: 12/17/16 08:42 Dose: Not Given Ergocalciferol (Drisdol 50,000 Intl Units Cap) 1 cap PO Q7D [facility] Last Admin: 12/13/16 09:12 Dose: 1 cap Insulin Human Regular (Humulin R) 0 units SC 0630,2100 [facility] PRN Reason: Protocol Last Admin: 12/17/16 07:17 Dose: Not Given Metformin HCl (Glucophage) 500 mg PO DAILY [facility] Last Admin: 12/17/16 08:43 Dose: 500 mg Methimazole (Tapazole) 5 mg PO DAILY [facility] Last Admin: 12/17/16 08:46 Dose: 5 mg Metoprolol Tartrate (Lopressor) 50 mg PO Q12 [facility] Last Admin: 12/17/16 08:42 Dose: 50 mg Pravastatin Sodium (Pravachol) 20 mg PO HS [facility] Last Admin: 12/16/16 21:07 Dose: 20 mg - Labs Labs: 12/15/16 05:20 12/15/16 05:20 Assessment and Plan - Assessment and Plan (Free Text) Plan: 61 yo female with history of HTN, A Fib, Hyperthyroidism, DM, and 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 1. Acute Intra Cerebral hemorrhage Neurosurgery on consult, Dr Webber: recommended no surgical intervention Off Eliquis and ASA PT/OT/Speech consult Physiatry consult Dr. Sanchez 2. History of CVA (cerebrovascular accident) with residual right hemiparesis and aphasia off ASA continue statin PT/OT/Speech therapy 3. 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 DM type 2 (diabetes mellitus, type 2), chronic BS controlled Metformin 500 mg PO daily HgBA1C 5.8 5. HTN (hypertension) controlled BP stable continue Metoprolol Tartrate 6. Atrial fibrillation with RVR HR controlled ECHO: normal EF, no LV thrombus off Eliquis - will check with Dr Joyner when pt can be restarted on anticoagulant continue Metoprolol and Digoxin 7. Hyperthyroidism continue Methimazole TSH normal 8. Hyperlipidemia Lipitor 40 mg PO HS 9. Vitamin B12 deficiency Vitamin B12 supplement
[2016-12-17] MEDS: Pravastatin Sodium 20 MG TAB PO SCH (21:36)
--- NOTE | 2016-12-18 01:39 | CP.PCM.PN ---
Subjective - Date & Time of Evaluation Date of Evaluation: 12/17/16 Time of Evaluation: 21:00 - Subjective Subjective: There is mild improvement in her power on the left side. Objective - Vital Signs/Intake and Output Vital Signs (last 24 hours): Temp Pulse Resp BP Pulse Ox 98.1 F 98 H 21 118/81 97 12/17/16 21:02 12/17/16 21:35 12/17/16 21:02 12/17/16 21:35 12/17/16 21:02 - Medications Medications: Current Medications Calcium Carbonate (Oscal) 500 mg PO BIDWM [facility] Last Admin: 12/17/16 17:38 Dose: 500 mg Digoxin (Lanoxin) 0.125 mg PO DAILY [facility] Last Admin: 12/17/16 08:43 Dose: 0.125 mg Docusate Sodium (Colace) 100 mg PO BID [facility] Last Admin: 12/17/16 17:37 Dose: 100 mg Ergocalciferol (Drisdol 50,000 Intl Units Cap) 1 cap PO Q7D [facility] Last Admin: 12/13/16 09:12 Dose: 1 cap Insulin Human Regular (Humulin R) 0 units SC 0630,2100 [facility] PRN Reason: Protocol Last Admin: 12/17/16 21:40 Dose: Not Given Metformin HCl (Glucophage) 500 mg PO DAILY [facility] Last Admin: 12/17/16 08:43 Dose: 500 mg Methimazole (Tapazole) 5 mg PO DAILY [facility] Last Admin: 12/17/16 08:46 Dose: 5 mg Metoprolol Tartrate (Lopressor) 50 mg PO Q12 [facility] Last Admin: 12/17/16 21:35 Dose: 50 mg Pravastatin Sodium (Pravachol) 20 mg PO HS [facility] Last Admin: 12/17/16 21:36 Dose: 20 mg - Labs Labs: 12/15/16 05:20 12/15/16 05:20 Assessment and Plan (1) Paraplegia Status: Acute (2) Alteration in skin integrity due to moisture Status: Chronic (3) Abnormal computed tomography of abdomen and pelvis Status: Acute (4) Chest pain Status: Acute (5) Intracerebral hemorrhage Status: Acute (6) Left hemiplegia Status: Acute (7) Prophylactic measure Status: Acute (8) Atrial fibrillation Status: Chronic (9) Cirrhosis of liver Status: Chronic
[2016-12-18] MEDS: Insulin Regular 100 units/ml SC SCH ×2 (06:30→21:52)
[2016-12-18] MEDS: Digoxin 125 mcg (0.125 mg) Tab PO SCH (08:59)
[2016-12-18] MEDS: methIMAzole 5 MG TAB PO SCH (09:00)
[2016-12-18] MEDS: Pravastatin Sodium 20 MG TAB PO SCH (21:53)
[2016-12-19] MEDS: Insulin Regular 100 units/ml SC SCH ×2 (06:25→20:59)
[2016-12-19] MEDS: methIMAzole 5 MG TAB PO SCH (08:28)
[2016-12-19] MEDS: Digoxin 125 mcg (0.125 mg) Tab PO SCH (08:29)
[2016-12-19] MEDS: Pravastatin Sodium 20 MG TAB PO SCH (21:01)
[2016-12-20] MEDS: Insulin Regular 100 units/ml SC SCH ×2 (06:43→21:41)
[2016-12-20] MEDS: Ergocalciferol 50,000 Intl Units Cap PO SCH (08:33)
[2016-12-20] MEDS: Digoxin 125 mcg (0.125 mg) Tab PO SCH (08:33)
[2016-12-20] MEDS: methIMAzole 5 MG TAB PO SCH (09:05)
--- NOTE | 2016-12-20 11:54 | CP.PCM.PN ---
Subjective - Date & Time of Evaluation Date of Evaluation: 12/20/16 Time of Evaluation: 10:30 - Subjective Subjective: Pt seen and examined. Remained aphasic with right sided weakness. Objective - Vital Signs/Intake and Output Vital Signs (last 24 hours): Temp Pulse Resp BP Pulse Ox 97.2 F L 80 18 155/78 H 99 12/20/16 07:30 12/20/16 08:34 12/20/16 07:30 12/20/16 08:34 12/20/16 07:30 - Medications Medications: Current Medications Calcium Carbonate (Oscal) 500 mg PO BIDWM [facility] Last Admin: 12/20/16 08:34 Dose: 500 mg Digoxin (Lanoxin) 0.125 mg PO DAILY [facility] Last Admin: 12/20/16 08:33 Dose: 0.125 mg Docusate Sodium (Colace) 100 mg PO BID [facility] Last Admin: 12/20/16 08:35 Dose: 100 mg Ergocalciferol (Drisdol 50,000 Intl Units Cap) 1 cap PO Q7D [facility] Last Admin: 12/20/16 08:33 Dose: 1 cap Insulin Human Regular (Humulin R) 0 units SC 0630,2100 [facility] PRN Reason: Protocol Last Admin: 12/20/16 06:43 Dose: Not Given Metformin HCl (Glucophage) 500 mg PO DAILY [facility] Last Admin: 12/20/16 08:35 Dose: 500 mg Methimazole (Tapazole) 5 mg PO DAILY [facility] Last Admin: 12/19/16 08:28 Dose: 5 mg Metoprolol Tartrate (Lopressor) 50 mg PO Q12 [facility] Last Admin: 12/20/16 08:34 Dose: 50 mg Pravastatin Sodium (Pravachol) 20 mg PO HS [facility] Last Admin: 12/19/16 21:01 Dose: 20 mg - Labs Labs: 12/15/16 05:20 12/15/16 05:20 - Constitutional Appears: No Acute Distress - Head Exam Head Exam: ATRAUMATIC - Eye Exam Eye Exam: absent: Scleral icterus - ENT Exam ENT Exam: Mucous Membranes Moist - Neck Exam Neck Exam: absent: Meningismus - Respiratory Exam Respiratory Exam: absent: Rhonchi, Wheezes, Respiratory Distress - Cardiovascular Exam Cardiovascular Exam: Irregular Rhythm - GI/Abdominal Exam GI & Abdominal Exam: Soft. absent: Tenderness - Rectal Exam Rectal Exam: Deferred - Extremities Exam Extremities Exam: absent: Full ROM (right upper and lower extremeties flaccid) - Neurological Exam Neurological Exam: Alert - Psychiatric Exam Psychiatric exam: Flat Affect - Skin Skin Exam: Dry, Intact Assessment and Plan (1) Intracerebral hemorrhage Status: Acute (2) Hemiplegia affecting dominant side Status: Chronic (3) History of CVA (cerebrovascular accident) Status: Chronic (4) Atrial fibrillation Status: Chronic (5) Cirrhosis of liver Status: Chronic (6) DM type 2 (diabetes mellitus, type 2) Status: Chronic (7) HTN (hypertension) Status: Chronic (8) Hyperthyroidism Status: Chronic - Assessment and Plan (Free Text) Assessment: 61 yo female with history of HTN, A Fib, Hyperthyroidism, DM, and 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 1. Acute Intra Cerebral hemorrhage Neurosurgery recommended no surgical intervention Off Eliquis and ASA continue PT/OT/Speech therapy Physiatry consult with Dr Mack 2. History of CVA (cerebrovascular accident) with residual right hemiparesis and aphasia off ASA continue statin on PT/OT/Speech therapy remained aphasic with flaccid limbs on the right side 3. 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 DM type 2 (diabetes mellitus, type 2), chronic BS relatively controlled Metformin 500 mg PO daily HgBA1C 5.8 5. HTN (hypertension) controlled BP stable continue Metoprolol Tartrate 6. Atrial fibrillation with RVR HR controlled ECHO: normal EF, no LV thrombus off Eliquis - will check with Dr Joyner when pt can be restarted on anticoagulant continue Metoprolol and Digoxin 7. Hyperthyroidism continue Methimazole TSH normal 8. Hyperlipidemia Lipitor 40 mg PO HS 9. Vitamin B12 deficiency Vitamin B12 supplement
[2016-12-20] MEDS: Pravastatin Sodium 20 MG TAB PO SCH (21:41)
--- NOTE | 2016-12-20 23:58 | CP.PCM.PN ---
Subjective - Date & Time of Evaluation Date of Evaluation: 12/20/16 Time of Evaluation: 21:10 - Subjective Subjective: Left sided hemiplegia, non verbal, expressive aphasia. Objective - Vital Signs/Intake and Output Vital Signs (last 24 hours): Temp Pulse Resp BP Pulse Ox 97.9 F 74 20 151/77 H 99 12/20/16 20:56 12/20/16 21:40 12/20/16 20:56 12/20/16 21:40 12/20/16 20:56 - Medications Medications: Current Medications Calcium Carbonate (Oscal) 500 mg PO BIDWM [facility] Last Admin: 12/20/16 16:45 Dose: 500 mg Digoxin (Lanoxin) 0.125 mg PO DAILY [facility] Last Admin: 12/20/16 08:33 Dose: 0.125 mg Docusate Sodium (Colace) 100 mg PO BID [facility] Last Admin: 12/20/16 16:45 Dose: 100 mg Ergocalciferol (Drisdol 50,000 Intl Units Cap) 1 cap PO Q7D [facility] Last Admin: 12/20/16 08:33 Dose: 1 cap Insulin Human Regular (Humulin R) 0 units SC 0630,2100 [facility] PRN Reason: Protocol Last Admin: 12/20/16 21:41 Dose: Not Given Metformin HCl (Glucophage) 500 mg PO DAILY [facility] Last Admin: 12/20/16 08:35 Dose: 500 mg Methimazole (Tapazole) 5 mg PO DAILY [facility] Last Admin: 12/20/16 09:05 Dose: 5 mg Metoprolol Tartrate (Lopressor) 50 mg PO Q12 [facility] Last Admin: 12/20/16 21:40 Dose: 50 mg Pravastatin Sodium (Pravachol) 20 mg PO HS [facility] Last Admin: 12/20/16 21:41 Dose: 20 mg - Labs Labs: 12/15/16 05:20 12/15/16 05:20 Assessment and Plan (1) Paraplegia Status: Acute (2) Alteration in skin integrity due to moisture Status: Chronic (3) Abnormal computed tomography of abdomen and pelvis Status: Acute (4) Chest pain Status: Acute (5) Intracerebral hemorrhage Status: Acute (6) Left hemiplegia Status: Acute (7) Prophylactic measure Status: Acute (8) Atrial fibrillation Status: Chronic (9) Cirrhosis of liver Status: Chronic
[2016-12-21] MEDS: Insulin Regular 100 units/ml SC SCH ×2 (06:38→21:42)
[2016-12-21] MEDS: Digoxin 125 mcg (0.125 mg) Tab PO SCH (09:06)
[2016-12-21] MEDS: methIMAzole 5 MG TAB PO SCH (09:08)
--- NOTE | 2016-12-21 12:41 | CP.PCM.PN ---
Subjective - Date & Time of Evaluation Date of Evaluation: 12/21/16 Time of Evaluation: 12:30 - Subjective Subjective: no acute problems noted Objective - Vital Signs/Intake and Output Vital Signs (last 24 hours): Temp Pulse Resp BP Pulse Ox 97.9 F 87 20 138/71 99 12/20/16 20:56 12/21/16 12:16 12/20/16 20:56 12/21/16 09:07 12/20/16 20:56 - Medications Medications: Current Medications Calcium Carbonate (Oscal) 500 mg PO BIDWM [facility] Last Admin: 12/21/16 09:07 Dose: 500 mg Digoxin (Lanoxin) 0.125 mg PO DAILY [facility] Last Admin: 12/21/16 09:06 Dose: 0.125 mg Docusate Sodium (Colace) 100 mg PO BID [facility] Last Admin: 12/21/16 09:05 Dose: 100 mg Ergocalciferol (Drisdol 50,000 Intl Units Cap) 1 cap PO Q7D [facility] Last Admin: 12/20/16 08:33 Dose: 1 cap Insulin Human Regular (Humulin R) 0 units SC 0630,2100 [facility] PRN Reason: Protocol Last Admin: 12/21/16 06:38 Dose: Not Given Metformin HCl (Glucophage) 500 mg PO DAILY [facility] Last Admin: 12/21/16 09:06 Dose: 500 mg Methimazole (Tapazole) 5 mg PO DAILY [facility] Last Admin: 12/21/16 09:08 Dose: 5 mg Metoprolol Tartrate (Lopressor) 50 mg PO Q12 [facility] Last Admin: 12/21/16 09:07 Dose: 50 mg Pravastatin Sodium (Pravachol) 20 mg PO HS [facility] Last Admin: 12/20/16 21:41 Dose: 20 mg - Labs Labs: 12/15/16 05:20 12/15/16 05:20 - Head Exam Head Exam: ATRAUMATIC, NORMAL INSPECTION, NORMOCEPHALIC - Eye Exam Eye Exam: EOMI, Normal appearance, PERRL Pupil Exam: NORMAL ACCOMODATION - ENT Exam ENT Exam: Mucous Membranes Moist, Normal Exam - Respiratory Exam Respiratory Exam: NORMAL BREATHING PATTERN - Cardiovascular Exam Cardiovascular Exam: REGULAR RHYTHM - GI/Abdominal Exam GI & Abdominal Exam: Normal Bowel Sounds - Rectal Exam Rectal Exam: NORMAL INSPECTION - Exam External exam: NORMAL EXTERNAL EXAM - Extremities Exam Extremities Exam: Full ROM, Normal Capillary Refill - Back Exam Back Exam: NORMAL INSPECTION - Neurological Exam Neurological Exam: Alert, Awake Neuro motor strength exam: Left Upper Extremity: 3, Right Upper Extremity: 2/1, Left Lower Extremity: 3, Right Lower Extremity: 2/1 - Psychiatric Exam Psychiatric exam: Normal Affect - Skin Skin Exam: Dry, Intact Assessment and Plan (1) Chest pain Status: Acute (2) Intracerebral hemorrhage Status: Acute (3) Left hemiplegia Assessment & Plan: plan for physical, occupational, rec and speech therapy for team conference Status: Acute (4) Prophylactic measure Status: Acute (5) Atrial fibrillation Status: Chronic (6) Cirrhosis of liver Status: Chronic
[2016-12-21] MEDS: Pravastatin Sodium 20 MG TAB PO SCH (21:29)
[2016-12-22] MEDS: Insulin Regular 100 units/ml SC SCH ×2 (06:40→21:22)
[2016-12-22] MEDS: Digoxin 125 mcg (0.125 mg) Tab PO SCH (08:37)
[2016-12-22] MEDS: methIMAzole 5 MG TAB PO SCH (08:38)
--- NOTE | 2016-12-22 12:10 | PSY.TMCNF ---
Nursing - Vital Signs Vital Signs (Last 8 hours): Vital Signs 12/22/16 12/22/16 12/22/16 08:22 08:38 11:59 Temperature 97.8 F 97.8 F Pulse Rate 93 H 93 H 93 H Respiratory 19 19 Rate Blood Pressure 151/71 H 151/71 H 151/71 H O2 Sat by Pulse 96 Oximetry Pain: 0 - Precautions: Precautions: Fall Prevention - Medications/Other Issues Comment: Pt at moderate nutritional risk. Goals: 1. Pt to consume 75-100% of meals (met, continue). 2. Blood glucoses to be between 70-180 mg/dl (met, continue). Follow-up due on 12/24/2016 - Consults Comment: Dr. Joyner, Dr. Mack - Wound Sacrum Wound Type: Moisture Associated Skin Damage Wound Length: 2.3 Wound Width: 0.4 Tunneling: No Undermining: No Wound Bed Greatest Portion: Red (Granulation) Periwound: Intact Wound Drainage Amount: None Wound Drainage Odor: None/Absent Wound Dressing Status: Open to air - Toileting Toileting: Dependent - Bladder Management Bladder Pattern: Incontinent Voiding Method: Diaper Bladder Management: Dependent Frequency of Accidents: >5 - Bowel Management Bowel Pattern: Incontinent Bowel Management: Dependent Frequency of Accidents: >5 - Transfers Transfers: Dependent - ADL's ADL's: Maximal Assistance - Pain Management Comments: Left shoulder pain - Patient/Family Teaching Comments: Care post CVA and safety precautions - Goals/Time Frame Comments: Per multidisciplinary care plan and goals Physical Therapy - Bed Mobility Bed Mobility: Moderate Assistance, Maximum Assistance - Transfers Wheelchair to Mat: Maximum Assistance Sit to Stand: Verbal Cues, Maximum Assistance Comment: WC < > mat with transfer board. Sit < > stand transfers with hemiwalker - Ambulation Level of Assistance: Not Tested Assistive Devices: N/A - Stair Negotiation Stairs: Level of Assistance: Not Tested - Standing Balance Static Stand: Maximal Assistance Dynamic Stand: Unable to assess/perform - Pain Management Techniques: Position Change - Insight/Carryover Insight/Carryover: Poor - Patient/Family Education Comment: Pt education for proper techniques during functional mobility training. *REQUESTING DAUGHTER/PRIVATE AIDE ATTEND THERAPY SESSIONS FOR TRAINING* Unsuccessful thus far - Assessment/Plan Assessment: Decreased strenght, endurance, balance, congition, motor control - Goals Timeframe: 5 days Goals: See progress note for updated goals - Provider Therapist: Gia WOODWARD RN CRRN Occupational Therapy - Arousal/Attention/Orientation Level of Consciousness: Awake, Alert, Confused Patient Orientation: Person - ADL/IADL Self Feeding: Set-up Help Grooming: Moderate Assistance Bathing-Upper Extremity: Maximum Assistance Bathing-Lower Extremity: Maximum Assistance Dressing-Upper Extremity: Moderate Assistance Dressing-Lower Extremity: Maximum Assistance - Sitting Balance Static Sitting: Contact Guard Assist Dynamic Sitting: Minimal Assistance - Transfers Wheelchair to Bed Transfers: Maximum Assistance Toilet Transfers: Maximum Assistance - Wheelchair Management Level of Assistance: Dependent - Upper Extremity Status Right Upper Extremity Comment: WFL Left Upper Extremity Comment: Noticed some tone yesterday, however still no motor control. Pt is very protective over it and c/o pain during movement. - Pain Alleviating Techniques: Position Change - Insight/Carryover Insight/Carryover: Poor - Patient/Family Education Comment: Pt education for proper techniques during functional mobility training. *REQUESTING DAUGHTER/PRIVATE AIDE ATTEND THERAPY SESSIONS FOR TRAINING* Unsuccessful thus far - Assessment/Plan Assessment: Decreased strenght, endurance, balance, congition, motor control - Goals Timeframe: 5 days Goals: See progress note for updated goals - Provider Therapist: Jolly REYNA License Number: [id number] Speech Therapy - Consult Information Patient on Program: Yes Medical Diagnosis: CVA Treatment Diagnosis: - moderate-severe receptive aphasia. - severe expressive aphasia - Assessment Expressive Language Impairment: Severe Receptive Language Impairment: Moderate Comment: moderate-severe - Plan Assessment: Decreased strenght, endurance, balance, congition, motor control - Provider Therapist: Emma Simon License Number: [id number] Recreational Therapy - Participation Participation: Participates in Individual and/or Group Sessions - Attendance Attendance: Daily - Activities Leisure Activities: Cards and Games - Socialization Level of Socialization: Minimal or no response - Assessment Assessment/Plan: Decreased strenght, endurance, balance, congition, motor control - Provider Therapist: Nisha Schaefer, TAE #[id number] Nutrition - Current Diet Current Diet/ Supplement/ Feedings: Moderate consistent CHO heart healthy prostat sugar free one per day. (100 kcal and 15 grams of protein) - Appetite Percent Meal Consumed: 75-100% - Comments Comments: Care post CVA and safety precautions - Assessment/Goals/Time Frame Assessment/Goals/Time Frame: Pt at moderate nutritional risk. Goals: 1. Pt to consume 75-100% of meals (met, continue). 2. Blood glucoses to be between 70- 180 mg/dl (met, continue). Follow-up due on 12/24/2016 - Provider Provider: Marie Larkin RD Case Management - Psychosocial Assessment Support Systems: Patient lives daughter. 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 Patient will require 24 hour hands on assist at home Patient/Family Meeting: CM met with patient/daughter and rehab team. Intervention/Goal/Outcome:: 1. Patient with aphasia and is primarily Georgian speaking. Discussion held with daughter Sabina. 2. Daughter to arrange for friend to come in for formal training as she was assisting patient at home. 3. [facility]. 4. Tentative discharge date: 01/02/2017. 5. continued emotional support - Discharge Plan Discharge Plan: Home with live in, Subacute care - Provider Provider: LILA Chang, [employer] License Number: [id number] Rehabilitation Plan - Treatment Plan Treatment Plan: Physical Therapy, Occupational Therapy, Speech, Dietary, Patient /Family Education - Recommendation Recommendation: Physical Therapy, Occupational Therapy, Speech, Dietary, Patient /Family Education - Discharge Plan Discharge to: Home (01/02 family training)
--- NOTE | 2016-12-22 13:11 | CP.PCM.PN ---
Subjective - Date & Time of Evaluation Date of Evaluation: 12/22/16 Time of Evaluation: 10:00 - Subjective Subjective: no acute complaints of neck or back pain Objective - Vital Signs/Intake and Output Vital Signs (last 24 hours): Temp Pulse Resp BP Pulse Ox 97.8 F 93 H 19 151/71 H 96 12/22/16 11:59 12/22/16 11:59 12/22/16 11:59 12/22/16 11:59 12/22/16 08:22 - Medications Medications: Current Medications Calcium Carbonate (Oscal) 500 mg PO BIDWM [facility] Last Admin: 12/22/16 08:38 Dose: 500 mg Digoxin (Lanoxin) 0.125 mg PO DAILY [facility] Last Admin: 12/22/16 08:37 Dose: 0.125 mg Docusate Sodium (Colace) 100 mg PO BID [facility] Last Admin: 12/22/16 08:36 Dose: Not Given Ergocalciferol (Drisdol 50,000 Intl Units Cap) 1 cap PO Q7D [facility] Last Admin: 12/20/16 08:33 Dose: 1 cap Insulin Human Regular (Humulin R) 0 units SC 0630,2100 [facility] PRN Reason: Protocol Last Admin: 12/22/16 06:40 Dose: Not Given Metformin HCl (Glucophage) 500 mg PO DAILY [facility] Last Admin: 12/22/16 08:38 Dose: 500 mg Methimazole (Tapazole) 5 mg PO DAILY [facility] Last Admin: 12/22/16 08:38 Dose: 5 mg Metoprolol Tartrate (Lopressor) 50 mg PO Q12 [facility] Last Admin: 12/22/16 08:38 Dose: 50 mg Pravastatin Sodium (Pravachol) 20 mg PO HS [facility] Last Admin: 12/21/16 21:29 Dose: 20 mg - Labs Labs: 12/15/16 05:20 12/15/16 05:20 - Head Exam Head Exam: ATRAUMATIC, NORMAL INSPECTION, NORMOCEPHALIC - Eye Exam Eye Exam: EOMI, Normal appearance, PERRL Pupil Exam: NORMAL ACCOMODATION - ENT Exam ENT Exam: Mucous Membranes Moist, Normal Exam - Respiratory Exam Respiratory Exam: NORMAL BREATHING PATTERN - Cardiovascular Exam Cardiovascular Exam: REGULAR RHYTHM - GI/Abdominal Exam GI & Abdominal Exam: Normal Bowel Sounds - Rectal Exam Rectal Exam: NORMAL INSPECTION - Exam External exam: NORMAL EXTERNAL EXAM - Extremities Exam Extremities Exam: Normal Capillary Refill, Normal Inspection - Back Exam Back Exam: NORMAL INSPECTION - Neurological Exam Neurological Exam: Alert, Awake Neuro motor strength exam: Left Upper Extremity: 2/1, Right Upper Extremity: 3, Left Lower Extremity: 2/1, Right Lower Extremity: 3 - Psychiatric Exam Psychiatric exam: Normal Affect, Normal Mood - Skin Skin Exam: Dry, Intact Assessment and Plan (1) Chest pain Status: Acute (2) Intracerebral hemorrhage Assessment & Plan: plan for physical, occupational, rec and speech therapy Dc for 01/02 need for family training Status: Acute (3) Left hemiplegia Status: Acute (4) Prophylactic measure Status: Acute (5) Atrial fibrillation Status: Chronic (6) Cirrhosis of liver Status: Chronic
--- NOTE | 2016-12-22 13:43 | CP.PCM.PN ---
Subjective - Date & Time of Evaluation Date of Evaluation: 12/22/16 Time of Evaluation: 14:20 - Subjective Subjective: Patient seen and examined. Sitting in chair. Aphasic ,with flat affect and dense right side hemiparesis. Hemodynamically stable, afebrile. No acute issues overnight As per staff patient seems notvery motivated to participate with PT Objective - Vital Signs/Intake and Output Vital Signs (last 24 hours): Temp Pulse Resp BP Pulse Ox 97.8 F 93 H 19 151/71 H 96 12/22/16 11:59 12/22/16 11:59 12/22/16 11:59 12/22/16 11:59 12/22/16 08:22 - Medications Medications: Current Medications Calcium Carbonate (Oscal) 500 mg PO BIDWM [facility] Last Admin: 12/22/16 08:38 Dose: 500 mg Digoxin (Lanoxin) 0.125 mg PO DAILY [facility] Last Admin: 12/22/16 08:37 Dose: 0.125 mg Docusate Sodium (Colace) 100 mg PO BID [facility] Last Admin: 12/22/16 08:36 Dose: Not Given Ergocalciferol (Drisdol 50,000 Intl Units Cap) 1 cap PO Q7D [facility] Last Admin: 12/20/16 08:33 Dose: 1 cap Insulin Human Regular (Humulin R) 0 units SC 0630,2100 [facility] PRN Reason: Protocol Last Admin: 12/22/16 06:40 Dose: Not Given Metformin HCl (Glucophage) 500 mg PO DAILY [facility] Last Admin: 12/22/16 08:38 Dose: 500 mg Methimazole (Tapazole) 5 mg PO DAILY [facility] Last Admin: 12/22/16 08:38 Dose: 5 mg Metoprolol Tartrate (Lopressor) 50 mg PO Q12 [facility] Last Admin: 12/22/16 08:38 Dose: 50 mg Pravastatin Sodium (Pravachol) 20 mg PO HS [facility] Last Admin: 12/21/16 21:29 Dose: 20 mg - Labs Labs: 12/15/16 05:20 12/15/16 05:20 - Constitutional Appears: Non-toxic, No Acute Distress - Head Exam Head Exam: ATRAUMATIC, NORMOCEPHALIC - Eye Exam Eye Exam: EOMI, Normal appearance, PERRL Pupil Exam: NORMAL ACCOMODATION - ENT Exam ENT Exam: Mucous Membranes Moist, Normal Exam - Neck Exam Neck Exam: Full ROM, Normal Inspection - Respiratory Exam Respiratory Exam: Clear to Ausculation Bilateral, NORMAL BREATHING PATTERN. absent: Rales, Rhonchi, Wheezes - Cardiovascular Exam Cardiovascular Exam: REGULAR RHYTHM, RRR, +S1, +S2. absent: JVD - GI/Abdominal Exam GI & Abdominal Exam: Soft, Normal Bowel Sounds. absent: Distended, Guarding, Tenderness, Rebound - Rectal Exam Rectal Exam: Deferred - Extremities Exam Extremities Exam: Normal Capillary Refill, Normal Inspection. absent: Pedal Edema - Back Exam Back Exam: NORMAL INSPECTION - Neurological Exam Additional comments: aphasic right side hemiparesis flat affect - Psychiatric Exam Psychiatric exam: Depressed, Flat Affect - Skin Skin Exam: Dry, Normal Color, Warm Assessment and Plan - Assessment and Plan (Free Text) Assessment: 61 yo female with history of HTN, A Fib, Hyperthyroidism, DM, and 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 1. Acute Intra Cerebral hemorrhage Patient aphasic with dense right side hemiparesis Apperas with flat affect and not very willing to participate with PT Off Eliquis and ASA as per neurosurgery and neurology continue PT/OT/Speech therapy Physiatry consult with Dr Mack appreciated Will need to discuss discharge plan with family 2. History of ischemic CVA (cerebrovascular accident) with residual right hemiparesis and aphasia off ASA due to recent bleed continue statin continue PT/OT/Speech therapy remains aphasic with flaccid limbs on the right side 3. 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 DM type 2 (diabetes mellitus, type 2), chronic BS controlled Metformin 500 mg PO daily HgBA1C 5.8 5. HTN (hypertension) controlled BP stable continue Metoprolol Tartrate 6. Atrial fibrillation rate controlled ECHO: normal EF, no LV thrombus off Eliquis due to recent intracranial bleed. Will check with Dr Joyner when pt can be restarted on anticoagulant continue Metoprolol and Digoxin 7. Hyperthyroidism continue Methimazole TSH normal 8. Hyperlipidemia Lipitor 40 mg PO HS 9. Vitamin B12 deficiency Vitamin B12 supplement 10.Vitamin D deficiency on Vitamin D supplements
[2016-12-22] MEDS: Pravastatin Sodium 20 MG TAB PO SCH (21:21)
[2016-12-23] MEDS: Insulin Regular 100 units/ml SC SCH ×2 (06:36→21:13)
[2016-12-23] MEDS: Digoxin 125 mcg (0.125 mg) Tab PO SCH (08:51)
[2016-12-23] MEDS: methIMAzole 5 MG TAB PO SCH (08:52)
[2016-12-23] MEDS: Pravastatin Sodium 20 MG TAB PO SCH (21:10)
[2016-12-24] MEDS: Insulin Regular 100 units/ml SC SCH ×2 (07:00→21:14)
[2016-12-24] MEDS: Digoxin 125 mcg (0.125 mg) Tab PO SCH (08:09)
[2016-12-24] MEDS: methIMAzole 5 MG TAB PO SCH (08:09)
--- NOTE | 2016-12-24 11:56 | CP.PCM.PN ---
Subjective - Date & Time of Evaluation Date of Evaluation: 12/24/16 Time of Evaluation: 08:00 - Subjective Subjective: no acute complaints at present Objective - Vital Signs/Intake and Output Vital Signs (last 24 hours): Temp Pulse Resp BP Pulse Ox 97.3 F L 102 H 22 155/86 H 97 12/24/16 08:44 12/24/16 08:44 12/24/16 08:44 12/24/16 08:44 12/24/16 08:44 - Medications Medications: Current Medications Calcium Carbonate (Oscal) 500 mg PO BIDWM [facility] Last Admin: 12/24/16 08:09 Dose: 500 mg Cyanocobalamin (Vitamin B12 1000 Mcg Tab) 1,000 mcg PO DAILY [facility] Last Admin: 12/24/16 08:09 Dose: 1,000 mcg Digoxin (Lanoxin) 0.125 mg PO DAILY [facility] Last Admin: 12/24/16 08:09 Dose: 0.125 mg Docusate Sodium (Colace) 100 mg PO BID [facility] Last Admin: 12/24/16 08:08 Dose: 100 mg Ergocalciferol (Drisdol 50,000 Intl Units Cap) 1 cap PO Q7D [facility] Last Admin: 12/20/16 08:33 Dose: 1 cap Insulin Human Regular (Humulin R) 0 units SC 0630,2100 [facility] PRN Reason: Protocol Last Admin: 12/24/16 07:00 Dose: Not Given Metformin HCl (Glucophage) 500 mg PO DAILY [facility] Last Admin: 12/24/16 08:09 Dose: 500 mg Methimazole (Tapazole) 5 mg PO DAILY [facility] Last Admin: 12/24/16 08:09 Dose: 5 mg Metoprolol Tartrate (Lopressor) 50 mg PO Q12 [facility] Last Admin: 12/23/16 20:29 Dose: 50 mg Pravastatin Sodium (Pravachol) 20 mg PO HS [facility] Last Admin: 12/23/16 21:10 Dose: 20 mg - Labs Labs: 12/15/16 05:20 12/15/16 05:20 - Head Exam Head Exam: ATRAUMATIC, NORMAL INSPECTION, NORMOCEPHALIC - Eye Exam Eye Exam: EOMI, Normal appearance, PERRL Pupil Exam: NORMAL ACCOMODATION - ENT Exam ENT Exam: Mucous Membranes Moist, Normal Exam - Neck Exam Neck Exam: Normal Inspection - Respiratory Exam Respiratory Exam: NORMAL BREATHING PATTERN - Cardiovascular Exam Cardiovascular Exam: REGULAR RHYTHM - GI/Abdominal Exam GI & Abdominal Exam: Normal Bowel Sounds - Rectal Exam Rectal Exam: NORMAL INSPECTION - Exam External exam: NORMAL EXTERNAL EXAM - Extremities Exam Extremities Exam: Normal Capillary Refill, Normal Inspection - Back Exam Back Exam: NORMAL INSPECTION - Neurological Exam Neurological Exam: Alert, Awake Neuro motor strength exam: Left Upper Extremity: 2/1, Right Upper Extremity: 3, Left Lower Extremity: 2/1, Right Lower Extremity: 3 - Psychiatric Exam Psychiatric exam: Normal Affect, Normal Mood - Skin Skin Exam: Dry, Intact Assessment and Plan (1) Chest pain Status: Acute (2) Intracerebral hemorrhage Assessment & Plan: plan for physical, occupational, rec therapy Electric stim for patient trial awaiting family training wraaping for right arm Status: Acute (3) Left hemiplegia Status: Acute (4) Prophylactic measure Status: Acute (5) Atrial fibrillation Status: Chronic (6) Cirrhosis of liver Status: Chronic
--- NOTE | 2016-12-24 14:53 | CP.PCM.PN ---
Subjective - Date & Time of Evaluation Date of Evaluation: 12/24/16 Time of Evaluation: 13:00 - Subjective Subjective: Pt seen and examined. Complained of pain and swelling of the right arm. Objective - Vital Signs/Intake and Output Vital Signs (last 24 hours): Temp Pulse Resp BP Pulse Ox 97.3 F L 102 H 22 155/86 H 97 12/24/16 08:44 12/24/16 08:44 12/24/16 08:44 12/24/16 08:44 12/24/16 08:44 - Medications Medications: Current Medications Calcium Carbonate (Oscal) 500 mg PO BIDWM [facility] Last Admin: 12/24/16 08:09 Dose: 500 mg Cyanocobalamin (Vitamin B12 1000 Mcg Tab) 1,000 mcg PO DAILY [facility] Last Admin: 12/24/16 08:09 Dose: 1,000 mcg Digoxin (Lanoxin) 0.125 mg PO DAILY [facility] Last Admin: 12/24/16 08:09 Dose: 0.125 mg Docusate Sodium (Colace) 100 mg PO BID [facility] Last Admin: 12/24/16 08:08 Dose: 100 mg Ergocalciferol (Drisdol 50,000 Intl Units Cap) 1 cap PO Q7D [facility] Last Admin: 12/20/16 08:33 Dose: 1 cap Insulin Human Regular (Humulin R) 0 units SC 0630,2100 [facility] PRN Reason: Protocol Last Admin: 12/24/16 07:00 Dose: Not Given Metformin HCl (Glucophage) 500 mg PO DAILY [facility] Last Admin: 12/24/16 08:09 Dose: 500 mg Methimazole (Tapazole) 5 mg PO DAILY [facility] Last Admin: 12/24/16 08:09 Dose: 5 mg Metoprolol Tartrate (Lopressor) 50 mg PO Q12 [facility] Last Admin: 12/23/16 20:29 Dose: 50 mg Pravastatin Sodium (Pravachol) 20 mg PO HS [facility] Last Admin: 12/23/16 21:10 Dose: 20 mg - Labs Labs: 12/15/16 05:20 12/15/16 05:20 - Constitutional Appears: No Acute Distress - Head Exam Head Exam: ATRAUMATIC - Eye Exam Eye Exam: absent: Scleral icterus - ENT Exam ENT Exam: Mucous Membranes Moist - Neck Exam Neck Exam: absent: Meningismus - Respiratory Exam Respiratory Exam: absent: Rhonchi, Wheezes, Respiratory Distress - Cardiovascular Exam Cardiovascular Exam: REGULAR RHYTHM, +S1, +S2 - GI/Abdominal Exam GI & Abdominal Exam: Soft. absent: Tenderness - Rectal Exam Rectal Exam: Deferred - Extremities Exam Extremities Exam: absent: Normal Inspection (right arm swollen with mild tenderness) - Neurological Exam Neurological Exam: Alert, Oriented x3 - Psychiatric Exam Psychiatric exam: Flat Affect - Skin Skin Exam: Dry, Intact Assessment and Plan (1) Intracerebral hemorrhage Status: Acute (2) Hemiplegia affecting dominant side Status: Acute (3) History of CVA (cerebrovascular accident) Status: Chronic (4) Atrial fibrillation Status: Chronic (5) Cirrhosis of liver Status: Chronic (6) DM type 2 (diabetes mellitus, type 2) Status: Chronic (7) HTN (hypertension) Status: Chronic (8) Hyperthyroidism Status: Chronic - Assessment and Plan (Free Text) Assessment: 61 yo female with history of HTN, A Fib, Hyperthyroidism, DM and 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 1. Acute Intra Cerebral hemorrhage Neurosurgery recommended no surgical intervention Off Eliquis and ASA continue PT/OT/Speech therapy Physiatry consult with Dr Mack 2. History of CVA (cerebrovascular accident) with residual right hemiparesis and aphasia off ASA continue statin on PT/OT/Speech therapy remained aphasic with flaccid limbs on the right side 3. Portal HTN/Liver Cirrhosis seen on CT Portal HTN with Varices etiology unknown Schistosoma Ab- negative Hep screen negative Ferritin: 42 Further work up can be done as outpt 4. DM type 2 (diabetes mellitus, type 2), chronic BS relatively controlled Metformin 500 mg PO daily HgBA1C 5.8 5. HTN (hypertension) controlled BP stable continue Metoprolol Tartrate 6. Atrial fibrillation with RVR HR controlled ECHO: normal EF, no LV thrombus off Eliquis - will check with Dr Joyner when pt can be restarted on anticoagulant continue Metoprolol and Digoxin 7. Hyperthyroidism continue Methimazole TSH normal 8. Hyperlipidemia Lipitor 40 mg PO HS 9. Vitamin B12 deficiency Vitamin B12 supplement
[2016-12-24] MEDS: Pravastatin Sodium 20 MG TAB PO SCH (21:49)
[2016-12-25] MEDS: Insulin Regular 100 units/ml SC SCH ×2 (07:04→21:59)
[2016-12-25] MEDS: methIMAzole 5 MG TAB PO SCH (08:25)
[2016-12-25] MEDS: Digoxin 125 mcg (0.125 mg) Tab PO SCH (08:25)
[2016-12-25] MEDS: Pravastatin Sodium 20 MG TAB PO SCH (21:58)
[2016-12-26] MEDS: Insulin Regular 100 units/ml SC SCH ×2 (06:47→21:28)
[2016-12-26] MEDS: Digoxin 125 mcg (0.125 mg) Tab PO SCH (08:10)
[2016-12-26] MEDS: methIMAzole 5 MG TAB PO SCH (08:12)
--- NOTE | 2016-12-26 18:42 | US ---
PROCEDURE: Right Upper Extremity Venous Doppler HISTORY: pain and swelling of right arm COMPARISON: None available. TECHNIQUE: Right upper extremity deep veins, including the lower internal jugular, subclavian, axillary and brachial veins, were evaluated flow, compressibility and respiratory phasicity. FINDINGS: There is normal venous morphology, compressibility where appropriate, augmentation, and Doppler flow of the right internal jugular, subclavian, axillary, and brachial veins. The visualized basilic and cephalic veins are patent. Radial and ulnar veins are also patent and unremarkable. IMPRESSION: No evidence of deep venous thrombosis in the right upper extremity.
[2016-12-26] MEDS: Pravastatin Sodium 20 MG TAB PO SCH (21:27)
--- NOTE | 2016-12-27 00:29 | CP.PCM.PN ---
Subjective - Date & Time of Evaluation Date of Evaluation: 12/26/16 Time of Evaluation: 20:20 - Subjective Subjective: No seizures, doing better on the long run, moving her left side minimally. she is suffering from 2 CVA in less than a month. Objective - Vital Signs/Intake and Output Vital Signs (last 24 hours): Temp Pulse Resp BP Pulse Ox 98.7 F 91 H 20 145/89 99 12/26/16 21:00 12/26/16 21:27 12/26/16 21:00 12/26/16 21:27 12/26/16 21:00 - Medications Medications: Current Medications Calcium Carbonate (Oscal) 500 mg PO BIDWM [facility] Last Admin: 12/26/16 16:53 Dose: 500 mg Cyanocobalamin (Vitamin B12 1000 Mcg Tab) 1,000 mcg PO DAILY [facility] Last Admin: 12/26/16 08:09 Dose: 1,000 mcg Digoxin (Lanoxin) 0.125 mg PO DAILY [facility] Last Admin: 12/26/16 08:10 Dose: 0.125 mg Docusate Sodium (Colace) 100 mg PO BID [facility] Last Admin: 12/26/16 16:52 Dose: 100 mg Ergocalciferol (Drisdol 50,000 Intl Units Cap) 1 cap PO Q7D [facility] Last Admin: 12/20/16 08:33 Dose: 1 cap Insulin Human Regular (Humulin R) 0 units SC 0630,2100 [facility] PRN Reason: Protocol Last Admin: 12/26/16 21:28 Dose: Not Given Metformin HCl (Glucophage) 500 mg PO DAILY [facility] Last Admin: 12/26/16 08:09 Dose: 500 mg Methimazole (Tapazole) 5 mg PO DAILY [facility] Last Admin: 12/26/16 08:12 Dose: 5 mg Metoprolol Tartrate (Lopressor) 50 mg PO Q12 [facility] Last Admin: 12/26/16 21:27 Dose: 50 mg Pravastatin Sodium (Pravachol) 20 mg PO HS [facility] Last Admin: 12/26/16 21:27 Dose: 20 mg - Labs Labs: 12/15/16 05:20 12/15/16 05:20 Assessment and Plan (1) Paraplegia Status: Acute (2) Alteration in skin integrity due to moisture Status: Chronic (3) Abnormal computed tomography of abdomen and pelvis Status: Acute (4) Chest pain Status: Acute (5) Intracerebral hemorrhage Status: Acute (6) Left hemiplegia Status: Chronic (7) Prophylactic measure Status: Acute (8) Atrial fibrillation Status: Chronic (9) Cirrhosis of liver Status: Chronic
[2016-12-27] MEDS: Insulin Regular 100 units/ml SC SCH ×2 (06:50→21:09)
[2016-12-27] MEDS: Ergocalciferol 50,000 Intl Units Cap PO SCH (08:34)
[2016-12-27] MEDS: methIMAzole 5 MG TAB PO SCH (08:35)
[2016-12-27] MEDS: Digoxin 125 mcg (0.125 mg) Tab PO SCH (08:35)
--- NOTE | 2016-12-27 15:08 | CP.PCM.PN ---
Subjective - Date & Time of Evaluation Date of Evaluation: 12/27/16 Time of Evaluation: 09:00 - Subjective Subjective: patient with no neck or shoulder pain Objective - Vital Signs/Intake and Output Vital Signs (last 24 hours): Temp Pulse Resp BP Pulse Ox 98.1 F 94 H 22 118/70 96 12/27/16 08:33 12/27/16 08:34 12/27/16 08:33 12/27/16 08:34 12/27/16 08:33 - Medications Medications: Current Medications Calcium Carbonate (Oscal) 500 mg PO BIDWM [facility] Last Admin: 12/27/16 08:34 Dose: 500 mg Cyanocobalamin (Vitamin B12 1000 Mcg Tab) 1,000 mcg PO DAILY [facility] Last Admin: 12/27/16 08:35 Dose: 1,000 mcg Digoxin (Lanoxin) 0.125 mg PO DAILY [facility] Last Admin: 12/27/16 08:35 Dose: 0.125 mg Docusate Sodium (Colace) 100 mg PO BID [facility] Last Admin: 12/27/16 08:34 Dose: 100 mg Ergocalciferol (Drisdol 50,000 Intl Units Cap) 1 cap PO Q7D [facility] Last Admin: 12/27/16 08:34 Dose: 1 cap Insulin Human Regular (Humulin R) 0 units SC 0630,2100 [facility] PRN Reason: Protocol Last Admin: 12/27/16 06:50 Dose: Not Given Metformin HCl (Glucophage) 500 mg PO DAILY [facility] Last Admin: 12/27/16 08:35 Dose: 500 mg Methimazole (Tapazole) 5 mg PO DAILY [facility] Last Admin: 12/27/16 08:35 Dose: 5 mg Metoprolol Tartrate (Lopressor) 50 mg PO Q12 [facility] Last Admin: 12/27/16 08:34 Dose: 50 mg Pravastatin Sodium (Pravachol) 20 mg PO HS [facility] Last Admin: 12/26/16 21:27 Dose: 20 mg - Labs Labs: 12/15/16 05:20 12/15/16 05:20 - Head Exam Head Exam: ATRAUMATIC, NORMAL INSPECTION, NORMOCEPHALIC - Eye Exam Eye Exam: EOMI, Normal appearance, PERRL Pupil Exam: NORMAL ACCOMODATION - ENT Exam ENT Exam: Mucous Membranes Moist, Normal Exam - Neck Exam Neck Exam: Normal Inspection - Respiratory Exam Respiratory Exam: NORMAL BREATHING PATTERN - Cardiovascular Exam Cardiovascular Exam: REGULAR RHYTHM - GI/Abdominal Exam GI & Abdominal Exam: Normal Bowel Sounds - Rectal Exam Rectal Exam: NORMAL INSPECTION - Exam External exam: NORMAL EXTERNAL EXAM - Extremities Exam Extremities Exam: Normal Capillary Refill, Normal Inspection - Back Exam Back Exam: NORMAL INSPECTION - Neurological Exam Neurological Exam: Alert, Awake Neuro motor strength exam: Left Upper Extremity: 2/1, Right Upper Extremity: 3, Left Lower Extremity: 2/1, Right Lower Extremity: 3 - Psychiatric Exam Psychiatric exam: Normal Affect, Normal Mood - Skin Skin Exam: Dry, Intact Assessment and Plan (1) Chest pain Status: Acute (2) Intracerebral hemorrhage Assessment & Plan: plan for physical, occupational, rec . speech therapy Status: Acute (3) Left hemiplegia Status: Acute (4) Prophylactic measure Status: Acute (5) Atrial fibrillation Status: Chronic (6) Cirrhosis of liver Status: Chronic
--- NOTE | 2016-12-27 17:18 | CP.PCM.PN ---
Subjective - Date & Time of Evaluation Date of Evaluation: 12/27/16 Time of Evaluation: 17:00 - Subjective Subjective: Hospitalist Progress Note (Patient was seen and examined at 5 PM 12/27/16 624-1 with the help of Nurse Gia) 61 y/o female (PMHx of HTN, Hyperthyroidism, DM 2, A Fib, CVA (1 month ago) with residual Right Hemiparesis and Aphasia) was brought to [facility] ER on 12/03/16 because of chest pain and vomiting. EKG in the ER showed Atrial Fibrillation. CT Abdomen/Pelvis showed Portal HTN/Liver Cirrhosis. CT Head showed linear acute hemorrhage in the left basal ganglia and posterior limb internal capsule and medial temporal lobe, large cystic encephalomalacia in the left almonte radiata/frontal/temporal/parietal lobes and basal ganglia sequela of Left MCA territory infarction. Patient was admitted to the ICU for close monitoring, neurosurgery and neurology consulted, and ASA and Eliquis discontinued. MRI of the brain ( poor quality film ) showed no acute pathology. Patient was then admitted to Acute Rehab at [facility] for PT/OT and further recovery on 12/10/16. Upon FULL ROS patient shakes her head NO Physical Exam - Constitutional Appears: Non-toxic, No Acute Distress - Head Exam Head Exam: ATRAUMATIC, NORMAL INSPECTION, NORMOCEPHALIC - Eye Exam Eye Exam: EOMI, Normal appearance, PERRL Pupil Exam: NORMAL ACCOMODATION, PERRL - ENT Exam ENT Exam: Mucous Membranes Moist, Normal Exam, Normal External Ear Exam, Normal Oropharynx Additional comments: Poor dentition - Neck Exam Neck exam: Positive for: Normal Inspection Additional comments: NO thyromegaly NO cervical lymphadenopathy - Respiratory Exam Respiratory Exam: Clear to Auscultation Bilateral, NORMAL BREATHING PATTERN Additional comments: NO R/R/W - Cardiovascular Exam Additional comments: Irregularly Irregular - GI/Abdominal Exam Additional comments: BSx4, Soft, NT, Central Obesity, NO HSM, NO guarding/rebound tenderness - Extremities Exam Additional comments: NO edema Capillary Refill is 2 seconds Pulses are strong and equal and irregular Right Anterior Lower Leg and Left Posterior Lower Leg have large skin patch that is brown Assessment and Plan: 1). Acute Intracranial Hemorrhage Hx of Aphasia with Right Side Hemiparesis Neurosurgery Dr. Webber: NO surgical intervention Neurologist Dr. Joyner 2). Liver Cirrhosis/Portal HTN Further workup/follow up with GI as outpatient. Hepatitis Screen is negative Schistosoma Ab negative 3). DM 2 HgBA1C is 5.8 on 12/03/16 Metformin 500 mg PO 1x/day Regular ISS Accuchecks 6:30 AM and 9:00 PM Controlled 4). HTN Metoprolol Tartrate 50 mg PO 2x/day Controlled 5). Atrial Fibrillation Echocardiogram 12/08/16 is unremarkable Digoxin 0.125 mg PO 1x/day Rate is controlled ASA and Eliquis are being held secondary to cranial hemorrhage and will need input from Neurology Dr. Joyner to see if they can be restarted 6). Hyperthyroidism Methimazole 5 mg PO 1x/day TSH 5.68 and T4 10 on 12/03/16 7). Hyperlipidemia LDL at 46 Pravastatin 20 mg PO 1x/day QHS. 8). Vitamin B12 Deficiency <159 on 12/05/16 1,000 mcg IM monthly with next dose on 01/13/17 9). Vitamin D Deficiency Ergocalciferol 50,000 Units 1 capsule PO once a week on Mondays with last dose on 01/17/17 10). Sacral Ulcer Was ocated inside upper buttock cheeks inferior to sacral triangle and appeared to be Stage II but this is no longer present (examined with Nurse Gia on ) and was treated with NutraShield Ointment 3x/day 11). Prophylactic Measure Calcium Carbonate 500 mg PO BID Colace 100 mg PO 2x/day Protonix 40 mg PO 1x/day for GI Prophylaxis NO anticoagulation for now considering history. SCDs for DVT Prophylaxis Right Upper Extremity Venous Doppler 12/24/16 was negative for DVT Andre Mir D.O. Objective - Vital Signs/Intake and Output Vital Signs (last 24 hours): Temp Pulse Resp BP Pulse Ox 98.1 F 94 H 22 108/77 96 12/27/16 08:33 12/27/16 08:34 12/27/16 08:33 12/27/16 11:52 12/27/16 08:33 - Medications Medications: Current Medications Calcium Carbonate (Oscal) 500 mg PO BIDWM [facility] Last Admin: 12/27/16 17:14 Dose: 500 mg Cyanocobalamin (Vitamin B12 1000 Mcg Tab) 1,000 mcg PO DAILY [facility] Last Admin: 12/27/16 08:35 Dose: 1,000 mcg Digoxin (Lanoxin) 0.125 mg PO DAILY [facility] Last Admin: 12/27/16 08:35 Dose: 0.125 mg Docusate Sodium (Colace) 100 mg PO BID [facility] Last Admin: 12/27/16 17:14 Dose: 100 mg Ergocalciferol (Drisdol 50,000 Intl Units Cap) 1 cap PO Q7D [facility] Last Admin: 12/27/16 08:34 Dose: 1 cap Insulin Human Regular (Humulin R) 0 units SC 0630,2100 [facility] PRN Reason: Protocol Last Admin: 12/27/16 06:50 Dose: Not Given Metformin HCl (Glucophage) 500 mg PO DAILY [facility] Last Admin: 12/27/16 08:35 Dose: 500 mg Methimazole (Tapazole) 5 mg PO DAILY [facility] Last Admin: 12/27/16 08:35 Dose: 5 mg Metoprolol Tartrate (Lopressor) 50 mg PO Q12 [facility] Last Admin: 12/27/16 08:34 Dose: 50 mg Pravastatin Sodium (Pravachol) 20 mg PO HS [facility] Last Admin: 12/26/16 21:27 Dose: 20 mg - Labs Labs: 12/15/16 05:20 12/15/16 05:20
[2016-12-27] MEDS ORDERED: Ammonium Lactate 12% Cream (140 g) TOP SCH (17:30)
[2016-12-27] MEDS: Pravastatin Sodium 20 MG TAB PO SCH (21:05)
[2016-12-27 23:26] VITALS: RESP 20
[2016-12-28] MEDS: Insulin Regular 100 units/ml SC SCH ×2 (07:29→21:31)
[2016-12-28] MEDS: Pantoprazole 40 mg EC Tab PO SCH (09:07)
[2016-12-28] MEDS: methIMAzole 5 MG TAB PO SCH (09:08)
[2016-12-28] MEDS: Digoxin 125 mcg (0.125 mg) Tab PO SCH (09:36)
[2016-12-28] MEDS: Pravastatin Sodium 20 MG TAB PO SCH (21:22)
[2016-12-29] MEDS: Insulin Regular 100 units/ml SC SCH ×2 (06:56→21:04)
[2016-12-29 07:15] LABS: BASO % 0.8 % (0.0-2.0); EOS # 0.1 K/uL (0.0-0.7); EOS % 2.2 % (0.0-4.0); HEMATOCRIT 37.3 % (34.0-47.0); LYMPH # 1.6 K/uL (1.0-4.3); LYMPH % 29.8 % (20.0-40.0); MEAN CELL VOLUME 86.5 fl (81.0-99.0); MEAN CORPUSCULAR HEMOGLOBIN 30.2 pg (27.0-31.0); MEAN CORPUSCULAR HGB CONC 34.9 g/dL (33.0-37.0); MEAN PLATELET VOLUME 9.5 fl (7.2-11.7); MONO # 0.5 K/uL (0.0-0.8); MONO % 9.2 % (0.0-10.0); NEUT # 3.1 K/uL (1.8-7.0); NRBC % 0.2 % (0.0-0.0); RED CELL DISTRIBUTION WIDTH 16.2 % (11.5-14.5); WHITE BLOOD COUNT 5.3 K/uL (4.8-10.8)
[2016-12-29 07:38] LABS: ALKALINE PHOSPHATASE 114 U/L (38-126); ALT/SGPT 41 U/L (9-52); AST/SGOT 26 U/L (14-36); BILIRUBIN,TOTAL 1.7 mg/dl (0.2-1.3); BLOOD UREA NITROGEN 15 mg/dl (7-17); CALCIUM 9.2 mg/dL (8.4-10.2); CARBON DIOXIDE 25 mmol/L (22-30); CHLORIDE 101 mmol/L (98-107); GFR AFRICAN-AMERICAN > 60; GLUCOSE,RANDOM 131 mg/dL (65-105); POTASSIUM 3.9 MMOL/L (3.6-5.0); SODIUM 137 mmol/l (132-148); TOTAL PROTEIN 6.9 G/DL (6.3-8.2)
[2016-12-29] MEDS: Pantoprazole 40 mg EC Tab PO SCH (08:46)
[2016-12-29] MEDS: Digoxin 125 mcg (0.125 mg) Tab PO SCH (08:46)
[2016-12-29] MEDS: methIMAzole 5 MG TAB PO SCH (08:48)
--- NOTE | 2016-12-29 12:16 | PSY.TMCNF ---
Nursing - Vital Signs Vital Signs (Last 8 hours): Vital Signs 12/29/16 12/29/16 12/29/16 08:47 09:21 11:28 Temperature 98.1 F 98.1 F Pulse Rate 95 H 95 H 95 H Respiratory 20 20 Rate Blood Pressure 126/68 126/68 126/68 O2 Sat by Pulse 97 Oximetry Pain: 0 - Precautions: Precautions: Fall Prevention - Medications/Other Issues Comment: -Refuses/Removes SCD. -Removes pillows used for repositioning to sides. -(+) pending MBS due to coughing episode during dinner last night - Consults Comment: Dr. oJyner, Dr. Mack - Wound Sacrum Wound Type: Moisture Associated Skin Damage Wound Length: 2.3 Wound Width: 0.4 Tunneling: No Undermining: No Wound Bed Greatest Portion: Red (Granulation) Periwound: Intact Wound Drainage Amount: None Wound Drainage Odor: None/Absent Wound Dressing Status: Open to air - Toileting Toileting: Dependent - Bladder Management Bladder Pattern: Incontinent Bladder Management: Dependent Frequency of Accidents: >5 - Bowel Management Bowel Pattern: Incontinent Bowel Management: Dependent Frequency of Accidents: >5 - Transfers Transfers: Dependent - ADL's ADL's: Dependent - Pain Management Comments: Left shoulder pain - Patient/Family Teaching Comments: Care post CVA and Safety precautions - Goals/Time Frame Comments: Per multidisciplinary care plan and goals Physical Therapy - Bed Mobility Comment: Roll to L with dependent. Roll to R with min A. Sit to supine with max A. SUpine to sit with min/mod A - Transfers Wheelchair to Mat: Verbal Cues, Moderate Assistance Sit to Stand: Verbal Cues, Minimal Assistance, Moderate Assistance - Ambulation Level of Assistance: Maximum Assistance, Dependent Distance (ft.): 10 Assistive Devices: Ash Walker - Stair Negotiation Stairs: Level of Assistance: Not Tested - Standing Balance Static Stand: Moderate Assistance Dynamic Stand: Unable to assess/perform - Pain Management Techniques: Position Change - Insight/Carryover Insight/Carryover: Good - Patient/Family Education Comment: Initiated caregiver training with pts daughter for bed mobility and transfers - Assessment/Plan Assessment: Pt is demonstrating improvements in functional mobility tasks and is able to transfer bed < > WC with transfer board and min A. Initiated caregiver training with pts daughter and plan to complete training with daughter and "friend" that is also pts caregiver. Pt will continue to benefit from skilled PT intervention to maximize functional independence and reduce caregiver burden - Goals Timeframe: 2 weeks Goals: Sit < > supine min A. Sit < > stand CGA. Bed < > WC transfers CGA. Complete caregiver training - Provider Therapist: Gia WOODWARD RN CRRN Occupational Therapy - Arousal/Attention/Orientation Patient Orientation: Person, Place - ADL/IADL Self Feeding: Set-up Help Grooming: Moderate Assistance Bathing-Upper Extremity: Maximum Assistance Bathing-Lower Extremity: Maximum Assistance Dressing-Upper Extremity: Moderate Assistance Dressing-Lower Extremity: Maximum Assistance - Sitting Balance Static Sitting: Supervision Dynamic Sitting: Minimal Assistance - Transfers Wheelchair to Bed Transfers: Maximum Assistance - Wheelchair Management Level of Assistance: Dependent - Upper Extremity Status Right Upper Extremity Comment: Pt remains protective of RUE only allowing minimally SROM, pt's UE continues to remain flaccid - Pain Alleviating Techniques: Position Change - Insight/Carryover Insight/Carryover: Good - Patient/Family Education Comment: Initiated caregiver training with pts daughter for bed mobility and transfers - Assessment/Plan Assessment: Pt is demonstrating improvements in functional mobility tasks and is able to transfer bed < > WC with transfer board and min A. Initiated caregiver training with pts daughter and plan to complete training with daughter and "friend" that is also pts caregiver. Pt will continue to benefit from skilled PT intervention to maximize functional independence and reduce caregiver burden - Goals Timeframe: 2 weeks Goals: Sit < > supine min A. Sit < > stand CGA. Bed < > WC transfers CGA. Complete caregiver training - Provider Therapist: Ana Rodriguez Speech Therapy - Consult Information Patient on Program: Yes Medical Diagnosis: CVA Treatment Diagnosis: - moderate-severe receptive aphasia. - severe expressive aphasia - Assessment Expressive Language Impairment: Severe Receptive Language Impairment: Moderate Comment: moderate-severe - Plan Assessment: Pt is demonstrating improvements in functional mobility tasks and is able to transfer bed < > WC with transfer board and min A. Initiated caregiver training with pts daughter and plan to complete training with daughter and "friend" that is also pts caregiver. Pt will continue to benefit from skilled PT intervention to maximize functional independence and reduce caregiver burden - Provider Therapist: Lissy Damon License Number: [id number] Recreational Therapy - Participation Participation: Participates in Individual and/or Group Sessions - Attendance Attendance: 3-5 times per week - Activities Leisure Activities: Cards and Games - Socialization Level of Socialization: Minimal or no response - Assessment Assessment/Plan: Pt is demonstrating improvements in functional mobility tasks and is able to transfer bed < > WC with transfer board and min A. Initiated caregiver training with pts daughter and plan to complete training with daughter and "friend" that is also pts caregiver. Pt will continue to benefit from skilled PT intervention to maximize functional independence and reduce caregiver burden - Provider Therapist: Nisha Schaefer, SPEECH LANGUAGE PATHOLOGIST #[id number] Nutrition - Current Diet Current Diet/ Supplement/ Feedings: Moderate consistent CHO Heart healthy Prostat sugar free one per day. (100 kcal and 15 grams of protein) - Appetite Percent Meal Consumed: 75-100% - Comments Comments: Care post CVA and Safety precautions - Assessment/Goals/Time Frame Assessment/Goals/Time Frame: -Refuses/Removes SCD. -Removes pillows used for repositioning to sides. -(+) pending MBS due to coughing episode during dinner last night - Provider Provider: Marie Larkin RD Case Management - Psychosocial Assessment Support Systems: Patient lives bruce. 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 Patient will require 24 hour hands on assist at home Patient/Family Meeting: CM met with patient/daughter and rehab team. Intervention/Goal/Outcome:: 1. Patient with aphasia and is primarily Portuguese speaking. Discussion held with bruce Muhammad. 2. Daughter to arrange for friend to come in for formal training as she was assisting patient at home. 3. CM to contact [place] [employer] for recommendations for patient to return back home. 4. Tentative discharge date: 01/02/2017. 5. continued emotional support - Discharge Plan Discharge Plan: Home with live in, Subacute care - Provider Provider: LILA Chang, [employer] License Number: [id number] Rehabilitation Plan - Treatment Plan Treatment Plan: Physical Therapy, Occupational Therapy, Speech, Dietary, Patient /Family Education - Recommendation Recommendation: Physical Therapy, Occupational Therapy, Speech, Dietary, Patient /Family Education - Discharge Plan Discharge to: Home
--- NOTE | 2016-12-29 13:26 | CP.PCM.PN ---
Subjective - Date & Time of Evaluation Date of Evaluation: 12/29/16 Time of Evaluation: 10:00 - Subjective Subjective: no acute complaints, more verbal Objective - Vital Signs/Intake and Output Vital Signs (last 24 hours): Temp Pulse Resp BP Pulse Ox 98.1 F 95 H 20 126/68 97 12/29/16 11:28 12/29/16 11:28 12/29/16 11:28 12/29/16 11:28 12/29/16 09:21 - Medications Medications: Current Medications Calcium Carbonate (Oscal) 500 mg PO BIDWM [facility] Last Admin: 12/29/16 08:48 Dose: 500 mg Cyanocobalamin (Vitamin B12 1000 Mcg Tab) 1,000 mcg PO DAILY [facility] Last Admin: 12/29/16 08:48 Dose: 1,000 mcg Digoxin (Lanoxin) 0.125 mg PO DAILY [facility] Last Admin: 12/29/16 08:46 Dose: 0.125 mg Docusate Sodium (Colace) 100 mg PO BID [facility] Last Admin: 12/29/16 08:47 Dose: 100 mg Ergocalciferol (Drisdol 50,000 Intl Units Cap) 1 cap PO Q7D [facility] Last Admin: 12/27/16 08:34 Dose: 1 cap Insulin Human Regular (Humulin R) 0 units SC 0630,2100 [facility] PRN Reason: Protocol Last Admin: 12/29/16 06:56 Dose: Not Given Lactic Acid (Lac-Hydrin 12% Lotion (225 G)) 1 applic TOP BID [facility] Last Admin: 12/29/16 08:46 Dose: 1 applic Metformin HCl (Glucophage) 500 mg PO DAILY [facility] Last Admin: 12/29/16 08:47 Dose: 500 mg Methimazole (Tapazole) 5 mg PO DAILY [facility] Last Admin: 12/29/16 08:48 Dose: 5 mg Metoprolol Tartrate (Lopressor) 50 mg PO Q12 [facility] Last Admin: 12/29/16 08:47 Dose: 50 mg Pantoprazole Sodium (Protonix Ec Tab) 40 mg PO DAILY [facility] Last Admin: 12/29/16 08:46 Dose: 40 mg Pravastatin Sodium (Pravachol) 20 mg PO HS [facility] Last Admin: 12/28/16 21:22 Dose: 20 mg - Labs Labs: 12/29/16 05:20 12/29/16 05:20 - Head Exam Head Exam: ATRAUMATIC, NORMAL INSPECTION, NORMOCEPHALIC - Eye Exam Eye Exam: EOMI, Normal appearance, PERRL Pupil Exam: NORMAL ACCOMODATION - ENT Exam ENT Exam: Mucous Membranes Moist, Normal Exam - Neck Exam Neck Exam: Normal Inspection - Respiratory Exam Respiratory Exam: NORMAL BREATHING PATTERN - Cardiovascular Exam Cardiovascular Exam: REGULAR RHYTHM - GI/Abdominal Exam GI & Abdominal Exam: Normal Bowel Sounds - Rectal Exam Rectal Exam: NORMAL INSPECTION - Exam External exam: NORMAL EXTERNAL EXAM - Extremities Exam Extremities Exam: Normal Capillary Refill - Back Exam Back Exam: NORMAL INSPECTION - Neurological Exam Neurological Exam: Alert, Awake Neuro motor strength exam: Left Upper Extremity: 2/1, Right Upper Extremity: 4, Left Lower Extremity: 2/1, Right Lower Extremity: 4 - Psychiatric Exam Psychiatric exam: Normal Affect, Normal Mood - Skin Skin Exam: Dry, Intact Assessment and Plan (1) Chest pain Status: Acute (2) Intracerebral hemorrhage Status: Acute (3) Left hemiplegia Assessment & Plan: physical, occupational, rec and speecjh therapy discussed with family speech eval Status: Chronic (4) Prophylactic measure Status: Acute (5) Atrial fibrillation Status: Chronic (6) Cirrhosis of liver Status: Chronic
--- NOTE | 2016-12-29 16:55 | CP.PCM.PN ---
Subjective - Date & Time of Evaluation Date of Evaluation: 12/29/16 Time of Evaluation: 13:00 - Subjective Subjective: Pt seen and examined. Continue being non-verbal because of aphasia. Daughter inquiring whether it safe for her to travel to [place] immediately upon discharge Objective - Vital Signs/Intake and Output Vital Signs (last 24 hours): Temp Pulse Resp BP Pulse Ox 98.1 F 95 H 20 126/68 97 12/29/16 11:28 12/29/16 11:28 12/29/16 11:28 12/29/16 11:28 12/29/16 09:21 - Medications Medications: Current Medications Calcium Carbonate (Oscal) 500 mg PO BIDWM [facility] Last Admin: 12/29/16 08:48 Dose: 500 mg Cyanocobalamin (Vitamin B12 1000 Mcg Tab) 1,000 mcg PO DAILY [facility] Last Admin: 12/29/16 08:48 Dose: 1,000 mcg Digoxin (Lanoxin) 0.125 mg PO DAILY [facility] Last Admin: 12/29/16 08:46 Dose: 0.125 mg Docusate Sodium (Colace) 100 mg PO BID [facility] Last Admin: 12/29/16 08:47 Dose: 100 mg Ergocalciferol (Drisdol 50,000 Intl Units Cap) 1 cap PO Q7D [facility] Last Admin: 12/27/16 08:34 Dose: 1 cap Insulin Human Regular (Humulin R) 0 units SC 0630,2100 [facility] PRN Reason: Protocol Last Admin: 12/29/16 06:56 Dose: Not Given Lactic Acid (Lac-Hydrin 12% Lotion (225 G)) 1 applic TOP BID [facility] Last Admin: 12/29/16 08:46 Dose: 1 applic Metformin HCl (Glucophage) 500 mg PO DAILY [facility] Last Admin: 12/29/16 08:47 Dose: 500 mg Methimazole (Tapazole) 5 mg PO DAILY [facility] Last Admin: 12/29/16 08:48 Dose: 5 mg Metoprolol Tartrate (Lopressor) 50 mg PO Q12 [facility] Last Admin: 12/29/16 08:47 Dose: 50 mg Pantoprazole Sodium (Protonix Ec Tab) 40 mg PO DAILY [facility] Last Admin: 12/29/16 08:46 Dose: 40 mg Pravastatin Sodium (Pravachol) 20 mg PO HS [facility] Last Admin: 12/28/16 21:22 Dose: 20 mg - Labs Labs: 12/29/16 05:20 12/29/16 05:20 - Constitutional Appears: No Acute Distress - Head Exam Head Exam: ATRAUMATIC - Eye Exam Eye Exam: absent: Scleral icterus - ENT Exam ENT Exam: Mucous Membranes Moist - Neck Exam Neck Exam: absent: Meningismus - Respiratory Exam Respiratory Exam: absent: Rhonchi, Wheezes, Respiratory Distress - Cardiovascular Exam Cardiovascular Exam: REGULAR RHYTHM, +S1, +S2 - GI/Abdominal Exam GI & Abdominal Exam: Soft. absent: Tenderness - Rectal Exam Rectal Exam: Deferred - Neurological Exam Neurological Exam: Alert - Psychiatric Exam Psychiatric exam: Flat Affect - Skin Skin Exam: Dry, Intact Assessment and Plan (1) Intracerebral hemorrhage Status: Acute (2) Hemiplegia affecting dominant side Status: Acute (3) History of CVA (cerebrovascular accident) Status: Chronic (4) Atrial fibrillation Status: Chronic (5) Cirrhosis of liver Status: Chronic (6) DM type 2 (diabetes mellitus, type 2) Status: Chronic (7) HTN (hypertension) Status: Chronic (8) Hyperthyroidism Status: Chronic - Assessment and Plan (Free Text) Assessment: 61 yo female with history of HTN, A Fib, Hyperthyroidism, DM and 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 1. Acute Intra Cerebral hemorrhage No neurosurgical intervention Eliquis and ASA on hold and stopped indefinitely continue PT/OT/Speech therapy Physiatry consult with Dr Mack If patient would travel to [place] she would be at risk of developing DVT because of the long flight. Anti-platelets and anti-coagulant remained on hold because of the intra cerebral bleed incident 2. History of CVA (cerebrovascular accident) with residual right hemiparesis and aphasia off ASA continue statin on PT/OT/Speech therapy remained aphasic with flaccid limbs on the right side 3. Portal HTN/Liver Cirrhosis seen on CT Portal HTN with Varices etiology unknown Schistosoma Ab- negative Hep screen negative Ferritin: 42 Further work up can be done as outpt 4. DM type 2 (diabetes mellitus, type 2), chronic BS relatively controlled Metformin 500 mg PO daily HgBA1C 5.8 5. HTN (hypertension) controlled BP stable continue Metoprolol Tartrate 6. Atrial fibrillation with RVR HR controlled ECHO: normal EF, no LV thrombus off Eliquis - will check with Dr Joyner when pt can be restarted on anticoagulant continue Metoprolol and Digoxin 7. Hyperthyroidism continue Methimazole TSH normal 8. Hyperlipidemia Lipitor 40 mg PO HS 9. Vitamin B12 deficiency Vitamin B12 supplement
[2016-12-29] MEDS: Pravastatin Sodium 20 MG TAB PO SCH (21:03)
--- NOTE | 2016-12-29 21:37 | CT ---
EXAM: CT Head Without Intravenous Contrast CLINICAL HISTORY: 61 years old, female; Condition or disease; Other: Acute CVA; Additional info: Re-eval bleed TECHNIQUE: Axial computed tomography images of the head/brain without intravenous contrast. This CT exam was performed using one or more of the following dose reduction techniques: automated exposure control, adjustment of the mA and/or kV according to patient size, and/or use of iterative reconstruction technique. Coronal and sagittal reformatted images were created and reviewed. EXAM DATE/TIME: 12/29/2016 2:55 PM COMPARISON: CT - HEAD W/O CONTRAST 12/03/2016 8:06:59 PM FINDINGS: Brain: There is dilatation of sulci gyri and ventricles. There is no midline shift. There is decreased attenuation in periventricular white matter. There is focal encephalomalacia in the left temporal, frontal and parietal lobes and basal ganglia. There has been almost complete resolution of acute hemorrhage seen on the prior study. There are no focal masses. Young-white differentiation is visualized. Ventricles: See above Bones/joints: Bones: Cranial vault is intact. Soft tissues: unremarkable Sinuses: There is mild ethmoid and frontal sinus disease. Mastoid air cells: Ears and mastoids: Middle ears and mastoids are unremarkable. Orbits: Orbital contents are unremarkable. IMPRESSION: Atrophy and small vessel disease; left temporal, frontal, parietal and basal ganglia encephalomalacia, unchanged; almost complete resolution of hemorrhage seen on the prior study, no new abnormality Additional findings as described above.
--- NOTE | 2016-12-29 23:01 | CP.PCM.PN ---
Subjective - Date & Time of Evaluation Date of Evaluation: 12/29/16 Time of Evaluation: 09:00 - Subjective Subjective: Patient is about to be discharged and her family is planning on taking her back to [place]. Get CT Brain in order to assess her CVA, Hemorrhagic type prior to starting her on Anticoagulants. She is still suffering from left Hemiparesis, paraplegia, she is non verbal , Objective - Vital Signs/Intake and Output Vital Signs (last 24 hours): Temp Pulse Resp BP Pulse Ox 98.1 F 100 H 20 153/72 H 97 12/29/16 11:28 12/29/16 21:02 12/29/16 11:28 12/29/16 21:02 12/29/16 09:21 - Medications Medications: Current Medications Calcium Carbonate (Oscal) 500 mg PO BIDWM [facility] Last Admin: 12/29/16 17:12 Dose: 500 mg Cyanocobalamin (Vitamin B12 1000 Mcg Tab) 1,000 mcg PO DAILY [facility] Last Admin: 12/29/16 08:48 Dose: 1,000 mcg Digoxin (Lanoxin) 0.125 mg PO DAILY [facility] Last Admin: 12/29/16 08:46 Dose: 0.125 mg Docusate Sodium (Colace) 100 mg PO BID [facility] Last Admin: 12/29/16 17:12 Dose: 100 mg Ergocalciferol (Drisdol 50,000 Intl Units Cap) 1 cap PO Q7D [facility] Last Admin: 12/27/16 08:34 Dose: 1 cap Insulin Human Regular (Humulin R) 0 units SC 0630,2100 [facility] PRN Reason: Protocol Last Admin: 12/29/16 21:04 Dose: Not Given Lactic Acid (Lac-Hydrin 12% Lotion (225 G)) 1 applic TOP BID [facility] Last Admin: 12/29/16 17:12 Dose: 1 applic Metformin HCl (Glucophage) 500 mg PO DAILY [facility] Last Admin: 12/29/16 08:47 Dose: 500 mg Methimazole (Tapazole) 5 mg PO DAILY [facility] Last Admin: 12/29/16 08:48 Dose: 5 mg Metoprolol Tartrate (Lopressor) 50 mg PO Q12 [facility] Last Admin: 12/29/16 21:02 Dose: 50 mg Pantoprazole Sodium (Protonix Ec Tab) 40 mg PO DAILY [facility] Last Admin: 12/29/16 08:46 Dose: 40 mg Pravastatin Sodium (Pravachol) 20 mg PO HS [facility] Last Admin: 12/29/16 21:03 Dose: 20 mg - Labs Labs: 12/29/16 05:20 12/29/16 05:20 Assessment and Plan (1) Paraplegia Status: Chronic (2) Alteration in skin integrity due to moisture Status: Chronic (3) Abnormal computed tomography of abdomen and pelvis Status: Acute (4) Chest pain Status: Acute (5) Intracerebral hemorrhage Status: Acute (6) Left hemiplegia Status: Chronic (7) Prophylactic measure Status: Acute (8) Atrial fibrillation Status: Chronic (9) Cirrhosis of liver Status: Chronic
[2016-12-30] MEDS: Insulin Regular 100 units/ml SC SCH ×2 (06:30→21:46)
[2016-12-30] MEDS: Digoxin 125 mcg (0.125 mg) Tab PO SCH (09:00)
[2016-12-30] MEDS ORDERED: methIMAzole 5 MG TAB PO ONE (09:00)
[2016-12-30] MEDS: Pantoprazole 40 mg EC Tab PO SCH (09:00)
[2016-12-30] MEDS ORDERED: Digoxin 125 mcg (0.125 mg) Tab ONE (09:00)
[2016-12-30] MEDS ORDERED: Pantoprazole 40 mg EC Tab PO ONE (09:00)
[2016-12-30] MEDS: methIMAzole 5 MG TAB PO SCH (09:00)
[2016-12-30] MEDS: Pravastatin Sodium 20 MG TAB PO SCH (21:46)
--- NOTE | 2016-12-31 00:49 | CP.PCM.PN ---
Subjective - Date & Time of Evaluation Date of Evaluation: 12/30/16 Time of Evaluation: 19:00 - Subjective Subjective: She is doing relatively better, but is still non verbal. IMPRESSION of CT Brain of 12/29/2016: Atrophy and small vessel disease; left temporal, frontal, parietal and basal ganglia encephalomalacia, unchanged; almost complete resolution of hemorrhage seen on the prior study, no new abnormality Will repeat CT Brain on 01/02/2017 in order to make sure that the bleed in her brain has completely dried and resolved. The goal is to restart her on Oral Anticoagulants Plavix and ASA. Objective - Vital Signs/Intake and Output Vital Signs (last 24 hours): Temp Pulse Resp BP Pulse Ox 98.8 F 105 H 20 120/72 99 12/29/16 21:02 12/30/16 21:45 12/29/16 21:02 12/30/16 21:45 12/29/16 21:02 - Medications Medications: Current Medications Calcium Carbonate (Oscal) 500 mg PO BIDWM [facility] Last Admin: 12/30/16 17:00 Dose: 500 mg Cyanocobalamin (Vitamin B12 1000 Mcg Tab) 1,000 mcg PO DAILY [facility] Last Admin: 12/30/16 09:00 Dose: 1,000 mcg Digoxin (Lanoxin) 0.125 mg PO DAILY [facility] Last Admin: 12/30/16 09:00 Dose: 0.125 mg Docusate Sodium (Colace) 100 mg PO BID [facility] Last Admin: 12/30/16 17:00 Dose: 100 mg Ergocalciferol (Drisdol 50,000 Intl Units Cap) 1 cap PO Q7D [facility] Last Admin: 12/27/16 08:34 Dose: 1 cap Insulin Human Regular (Humulin R) 0 units SC 0630,2100 [facility] PRN Reason: Protocol Last Admin: 12/30/16 21:46 Dose: Not Given Lactic Acid (Lac-Hydrin 12% Lotion (225 G)) 1 applic TOP BID [facility] Last Admin: 12/30/16 17:00 Dose: 1 applic Metformin HCl (Glucophage) 500 mg PO DAILY [facility] Last Admin: 12/30/16 09:00 Dose: 500 mg Methimazole (Tapazole) 5 mg PO DAILY [facility] Last Admin: 12/30/16 09:00 Dose: 5 mg Metoprolol Tartrate (Lopressor) 50 mg PO Q12 [facility] Last Admin: 12/30/16 21:45 Dose: 50 mg Pantoprazole Sodium (Protonix Ec Tab) 40 mg PO DAILY [facility] Last Admin: 12/30/16 09:00 Dose: 40 mg Pravastatin Sodium (Pravachol) 20 mg PO HS [facility] Last Admin: 12/30/16 21:46 Dose: 20 mg - Labs Labs: 12/29/16 05:20 12/29/16 05:20 Assessment and Plan (1) Paraplegia Status: Chronic (2) Alteration in skin integrity due to moisture Status: Chronic (3) Abnormal computed tomography of abdomen and pelvis Status: Acute (4) Chest pain Status: Acute (5) Intracerebral hemorrhage Status: Acute (6) Left hemiplegia Status: Chronic (7) Prophylactic measure Status: Acute (8) Atrial fibrillation Status: Chronic (9) Cirrhosis of liver Status: Chronic
[2016-12-31] MEDS: Insulin Regular 100 units/ml SC SCH ×2 (07:09→21:33)
[2016-12-31] MEDS: Digoxin 125 mcg (0.125 mg) Tab PO SCH (08:23)
[2016-12-31] MEDS: methIMAzole 5 MG TAB PO SCH (08:25)
[2016-12-31] MEDS: Pantoprazole 40 mg EC Tab PO SCH (08:25)
--- NOTE | 2016-12-31 11:28 | CP.PCM.PN ---
Subjective - Date & Time of Evaluation Date of Evaluation: 12/31/16 Time of Evaluation: 11:30 - Subjective Subjective: Patient seen and examined. Appears very withdrawn today , does not want to interact with physician. No acute issues overnight.As per staff was able to walk about 20 feet yesterday , but still non verbal and with right hemiplagia Tachycardic HR 102-98, BP stable, afebrile Objective - Vital Signs/Intake and Output Vital Signs (last 24 hours): Temp Pulse Resp BP Pulse Ox 96.3 F L 98 H 20 127/98 H 97 12/31/16 07:48 12/31/16 08:24 12/31/16 07:48 12/31/16 08:24 12/31/16 07:48 - Medications Medications: Current Medications Calcium Carbonate (Oscal) 500 mg PO BIDWM [facility] Last Admin: 12/31/16 08:24 Dose: 500 mg Cyanocobalamin (Vitamin B12 1000 Mcg Tab) 1,000 mcg PO DAILY [facility] Last Admin: 12/31/16 08:23 Dose: 1,000 mcg Digoxin (Lanoxin) 0.125 mg PO DAILY [facility] Last Admin: 12/31/16 08:23 Dose: 0.125 mg Docusate Sodium (Colace) 100 mg PO BID [facility] Last Admin: 12/31/16 08:23 Dose: 100 mg Ergocalciferol (Drisdol 50,000 Intl Units Cap) 1 cap PO Q7D [facility] Last Admin: 12/27/16 08:34 Dose: 1 cap Insulin Human Regular (Humulin R) 0 units SC 0630,2100 [facility] PRN Reason: Protocol Last Admin: 12/31/16 07:09 Dose: 2 units Lactic Acid (Lac-Hydrin 12% Lotion (225 G)) 1 applic TOP BID [facility] Last Admin: 12/30/16 17:00 Dose: 1 applic Metformin HCl (Glucophage) 500 mg PO DAILY [facility] Last Admin: 12/31/16 08:23 Dose: 500 mg Methimazole (Tapazole) 5 mg PO DAILY [facility] Last Admin: 12/31/16 08:25 Dose: 5 mg Metoprolol Tartrate (Lopressor) 50 mg PO Q12 [facility] Last Admin: 12/31/16 08:24 Dose: 50 mg Pantoprazole Sodium (Protonix Ec Tab) 40 mg PO DAILY [facility] Last Admin: 12/31/16 08:25 Dose: 40 mg Pravastatin Sodium (Pravachol) 20 mg PO HS [facility] Last Admin: 12/30/16 21:46 Dose: 20 mg - Labs Labs: 12/29/16 05:20 12/29/16 05:20 - Constitutional Appears: Non-toxic, No Acute Distress - Head Exam Head Exam: ATRAUMATIC, NORMOCEPHALIC - Eye Exam Eye Exam: EOMI, Normal appearance, PERRL Pupil Exam: NORMAL ACCOMODATION - ENT Exam ENT Exam: Mucous Membranes Moist, Normal Exam - Neck Exam Neck Exam: Full ROM, Normal Inspection - Respiratory Exam Respiratory Exam: Clear to Ausculation Bilateral, NORMAL BREATHING PATTERN. absent: Rales, Rhonchi, Wheezes - Cardiovascular Exam Cardiovascular Exam: Tachycardia, Irregular Rhythm. absent: JVD - GI/Abdominal Exam GI & Abdominal Exam: Soft, Normal Bowel Sounds. absent: Distended, Guarding, Tenderness, Rebound - Rectal Exam Rectal Exam: Deferred - Extremities Exam Extremities Exam: Normal Capillary Refill, Normal Inspection. absent: Calf Tenderness - Back Exam Back Exam: NORMAL INSPECTION - Neurological Exam Neurological Exam: Alert, Awake Additional comments: non verbal right hemiplegia - Psychiatric Exam Psychiatric exam: Flat Affect - Skin Skin Exam: Dry, Intact, Normal Color, Warm Assessment and Plan - Assessment and Plan (Free Text) Assessment: 61 y/o female with history of HTN, A Fib, Hyperthyroidism, DM and 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 At present has shown some improvement, able to ambulate like [address] head showed no bleed. 1. Acute Intra Cerebral hemorrhage No neurosurgical intervention Eliquis and ASA on hold and stopped indefinitely Receiving PT/OT/Speech therapy in acute rehab and showed some improvement Physiatry consult with Dr Frederick woods Repeat Ct head showed no bleed. Neurologist Dr. Joyner on consult. If patient would travel to [place] she would be at risk of developing DVT because of the long flight. Anti-platelets and anti-coagulant remained on hold because of the intra cerebral bleed incident.Plan to repeat CT head in AM before making decision to start ASA and Plavix 2. History of CVA (cerebrovascular accident) with residual right hemiparesis and aphasia off ASA continue statin on PT/OT/Speech therapy remains aphasic with flaccid limbs on the right side, some improvement with transfer 3. Portal HTN/Liver Cirrhosis seen on CT Portal HTN with Varices etiology unknown Schistosoma Ab- negative Hep screen negative Ferritin: 42 Further work up can be done as outpt 4. DM type 2 (diabetes mellitus, type 2), chronic BS relatively controlled Metformin 500 mg PO daily HgBA1C 5.8 5. HTN (hypertension) controlled BP stable continue Metoprolol Tartrate 6. Atrial fibrillation with RVR HR controlled ECHO: normal EF, no LV thrombus off Eliquis - will check with Dr Joyner when pt can be restarted on anticoagulant continue Metoprolol and Digoxin 7. Hyperthyroidism continue Methimazole TSH normal 8. Hyperlipidemia Lipitor 40 mg PO HS 9. Vitamin B12 deficiency Vitamin B12 supplement
--- NOTE | 2016-12-31 13:41 | CP.PCM.PN ---
Subjective - Date & Time of Evaluation Date of Evaluation: 12/31/16 Time of Evaluation: 09:00 - Subjective Subjective: no acute complaints at present Objective - Vital Signs/Intake and Output Vital Signs (last 24 hours): Temp Pulse Resp BP Pulse Ox 96.3 F L 98 H 20 127/98 H 97 12/31/16 07:48 12/31/16 08:24 12/31/16 07:48 12/31/16 08:24 12/31/16 07:48 - Medications Medications: Current Medications Calcium Carbonate (Oscal) 500 mg PO BIDWM [facility] Last Admin: 12/31/16 08:24 Dose: 500 mg Cyanocobalamin (Vitamin B12 1000 Mcg Tab) 1,000 mcg PO DAILY [facility] Last Admin: 12/31/16 08:23 Dose: 1,000 mcg Digoxin (Lanoxin) 0.125 mg PO DAILY [facility] Last Admin: 12/31/16 08:23 Dose: 0.125 mg Docusate Sodium (Colace) 100 mg PO BID [facility] Last Admin: 12/31/16 08:23 Dose: 100 mg Ergocalciferol (Drisdol 50,000 Intl Units Cap) 1 cap PO Q7D [facility] Last Admin: 12/27/16 08:34 Dose: 1 cap Insulin Human Regular (Humulin R) 0 units SC 0630,2100 [facility] PRN Reason: Protocol Last Admin: 12/31/16 07:09 Dose: 2 units Lactic Acid (Lac-Hydrin 12% Lotion (225 G)) 1 applic TOP BID [facility] Last Admin: 12/30/16 17:00 Dose: 1 applic Metformin HCl (Glucophage) 500 mg PO DAILY [facility] Last Admin: 12/31/16 08:23 Dose: 500 mg Methimazole (Tapazole) 5 mg PO DAILY [facility] Last Admin: 12/31/16 08:25 Dose: 5 mg Metoprolol Tartrate (Lopressor) 50 mg PO Q12 [facility] Last Admin: 12/31/16 08:24 Dose: 50 mg Pantoprazole Sodium (Protonix Ec Tab) 40 mg PO DAILY [facility] Last Admin: 12/31/16 08:25 Dose: 40 mg Pravastatin Sodium (Pravachol) 20 mg PO HS [facility] Last Admin: 12/30/16 21:46 Dose: 20 mg - Labs Labs: 12/29/16 05:20 12/29/16 05:20 - Head Exam Head Exam: ATRAUMATIC, NORMAL INSPECTION, NORMOCEPHALIC - Eye Exam Eye Exam: EOMI, Normal appearance, PERRL Pupil Exam: NORMAL ACCOMODATION - ENT Exam ENT Exam: Mucous Membranes Moist, Normal Exam - Neck Exam Neck Exam: Normal Inspection - Respiratory Exam Respiratory Exam: NORMAL BREATHING PATTERN - Cardiovascular Exam Cardiovascular Exam: REGULAR RHYTHM - GI/Abdominal Exam GI & Abdominal Exam: Normal Bowel Sounds - Rectal Exam Rectal Exam: NORMAL INSPECTION - Exam External exam: NORMAL EXTERNAL EXAM - Extremities Exam Extremities Exam: Normal Capillary Refill - Neurological Exam Neurological Exam: Alert, Awake Neuro motor strength exam: Left Upper Extremity: 4, Right Upper Extremity: 2/1, Left Lower Extremity: 4, Right Lower Extremity: 2/1 - Psychiatric Exam Psychiatric exam: Normal Affect, Normal Mood - Skin Skin Exam: Dry, Intact, Normal Color Assessment and Plan (1) Chest pain Status: Acute (2) Intracerebral hemorrhage Status: Acute (3) Left hemiplegia Assessment & Plan: plan for physcial, occupational rec and speech therapy Dr Joyner and PMd to assess when and if patien can travel c with family for tuesday Status: Chronic (4) Prophylactic measure Status: Acute (5) Atrial fibrillation Status: Chronic (6) Cirrhosis of liver Status: Chronic
[2016-12-31] MEDS: Pravastatin Sodium 20 MG TAB PO SCH (21:32)
--- NOTE | 2016-12-31 22:17 | CP.PCM.PN ---
Subjective - Date & Time of Evaluation Date of Evaluation: 12/31/16 Time of Evaluation: 18:00 - Subjective Subjective: There is no change, she is supposed to be discharged on Tuesday but the plans are changing to be Discharged on 01/01/17, and this is not helping her condition. She needs to have a repeat CT Brain to assess for her old h/o IC Hge. It is not safe to travel by plane to [facility] as it is a very long travel while she still has fragile arteries. Objective - Vital Signs/Intake and Output Vital Signs (last 24 hours): Temp Pulse Resp BP Pulse Ox 96.3 F L 114 H 20 122/75 97 12/31/16 07:48 12/31/16 21:32 12/31/16 07:48 12/31/16 21:32 12/31/16 15:43 - Medications Medications: Current Medications Calcium Carbonate (Oscal) 500 mg PO BIDWM [facility] Last Admin: 12/31/16 17:36 Dose: 500 mg Cyanocobalamin (Vitamin B12 1000 Mcg Tab) 1,000 mcg PO DAILY [facility] Last Admin: 12/31/16 08:23 Dose: 1,000 mcg Digoxin (Lanoxin) 0.125 mg PO DAILY [facility] Last Admin: 12/31/16 08:23 Dose: 0.125 mg Docusate Sodium (Colace) 100 mg PO BID [facility] Last Admin: 12/31/16 17:36 Dose: 100 mg Ergocalciferol (Drisdol 50,000 Intl Units Cap) 1 cap PO Q7D [facility] Last Admin: 12/27/16 08:34 Dose: 1 cap Insulin Human Regular (Humulin R) 0 units SC 0630,2100 [facility] PRN Reason: Protocol Last Admin: 12/31/16 21:33 Dose: Not Given Lactic Acid (Lac-Hydrin 12% Lotion (225 G)) 1 applic TOP BID [facility] Last Admin: 12/31/16 17:36 Dose: 1 applic Metformin HCl (Glucophage) 500 mg PO DAILY [facility] Last Admin: 12/31/16 08:23 Dose: 500 mg Methimazole (Tapazole) 5 mg PO DAILY [facility] Last Admin: 12/31/16 08:25 Dose: 5 mg Metoprolol Tartrate (Lopressor) 50 mg PO Q12 [facility] Last Admin: 12/31/16 21:32 Dose: 50 mg Pantoprazole Sodium (Protonix Ec Tab) 40 mg PO DAILY [facility] Last Admin: 12/31/16 08:25 Dose: 40 mg Pravastatin Sodium (Pravachol) 20 mg PO HS [facility] Last Admin: 12/31/16 21:32 Dose: 20 mg - Labs Labs: 12/29/16 05:20 12/29/16 05:20 Assessment and Plan (1) Paraplegia Status: Chronic (2) Alteration in skin integrity due to moisture Status: Chronic (3) Abnormal computed tomography of abdomen and pelvis Status: Acute (4) Chest pain Status: Acute (5) Intracerebral hemorrhage Status: Acute (6) Left hemiplegia Status: Chronic (7) Prophylactic measure Status: Acute (8) Atrial fibrillation Status: Chronic (9) Cirrhosis of liver Status: Chronic
[2017-01-01] MEDS: Insulin Regular 100 units/ml SC SCH ×2 (07:15→21:26)
[2017-01-01] MEDS: Digoxin 125 mcg (0.125 mg) Tab PO SCH (09:18)
[2017-01-01] MEDS: methIMAzole 5 MG TAB PO SCH (09:19)
[2017-01-01] MEDS: Pantoprazole 40 mg EC Tab PO SCH (09:19)
--- NOTE | 2017-01-01 09:50 | CT ---
PROCEDURE: CT HEAD WITHOUT CONTRAST. HISTORY: Diagnosis-Acute CVA,re-evaluate bleed COMPARISON: Noncontrast head CT performed 12/29/16 and 12/03/16 TECHNIQUE: Axial computed tomography images were obtained through the head/brain without intravenous contrast. Radiation dose: Total exam DLP = 1185.14 mGy-cm. This CT exam was performed using one or more of the following dose reduction techniques: Automated exposure control, adjustment of the mA and/or kV according to patient size, and/or use of iterative reconstruction technique. FINDINGS: HEMORRHAGE: No intracranial hemorrhage identified. BRAIN: Diffuse atrophy with prominence of the ventricles and sulci noted. No mass effect or edema. Intracranial atherosclerotic calcifications. Extensive encephalomalacia re-identified involving the left temporal, frontal, and parietal lobes and basal ganglia. VENTRICLES: No hydrocephalus. CALVARIUM: Unremarkable. PARANASAL SINUSES: Mucosal thickening of the ethmoid air cells. Complete opacification of the right maxillary sinus including high density products. MASTOID AIR CELLS: Unremarkable as visualized. No inflammatory changes. OTHER FINDINGS: None. IMPRESSION: Encephalomalacia involving the left temporal, frontal, and parietal lobes as well as basal ganglia similar prior study. No appreciable intracranial hemorrhage on today's study. Please note that MRI with diffusion imaging is more sensitive in the detection of acute ischemic event. Increased attenuation of the right maxillary sinus contents may indicate proteinaceous material or fungal colonization. Additional findings as above.
[2017-01-01] MEDS: Pravastatin Sodium 20 MG TAB PO SCH (21:16)
--- NOTE | 2017-01-01 23:13 | CP.PCM.PN ---
Subjective - Date & Time of Evaluation Date of Evaluation: 01/01/17 Time of Evaluation: 20:00 - Subjective Subjective: Her Left hemiplegia has improved and she has weakness on the Right side as she had repeated strokes. Her repeat CT Brain is showing better results regarding the integrity of the Blood vessels and the dryness of her previous Bleed in the Brain. She will be discharged on 01/02/2017 and cannot travel to [facility] for the next few weeks until the January as it is a travel that takes at least 18 hrs up to 24 hrs and may endanger her life and due to the time of healing needed. ASA 81 mg might be started next week, while Eliquis can't be started now and needs reassessment prior to restarting it as a bleed might result after her 2 previous CVA with bleeding in the first time. Patient condition is critical and she is advised to return to the Hospital in case of any complications. She must stay on medicine for seizures to avoid any seizures. Keppra is started at 500 mg BID now then after a week has to go up to [address] Brain Repeat today: Encephalomalacia involving the left temporal, frontal, and parietal lobes as well as basal ganglia similar prior study. No appreciable intracranial hemorrhage on today's study. Please note that MRI with diffusion imaging is more sensitive in the detection of acute ischemic event. Increased attenuation of the right maxillary sinus contents may indicate proteinaceous material or fungal colonization. Objective - Vital Signs/Intake and Output Vital Signs (last 24 hours): Temp Pulse Resp BP Pulse Ox 98.8 F 93 H 20 110/63 97 01/01/17 21:03 01/01/17 21:03 01/01/17 21:03 01/01/17 21:03 01/01/17 21:03 - Medications Medications: Current Medications Calcium Carbonate (Oscal) 500 mg PO BIDWM [facility] Last Admin: 01/01/17 17:04 Dose: 500 mg Cyanocobalamin (Vitamin B12 1000 Mcg Tab) 1,000 mcg PO DAILY [facility] Last Admin: 01/01/17 09:20 Dose: 1,000 mcg Digoxin (Lanoxin) 0.125 mg PO DAILY [facility] Last Admin: 01/01/17 09:18 Dose: 0.125 mg Docusate Sodium (Colace) 100 mg PO BID [facility] Last Admin: 01/01/17 17:04 Dose: 100 mg Ergocalciferol (Drisdol 50,000 Intl Units Cap) 1 cap PO Q7D [facility] Last Admin: 12/27/16 08:34 Dose: 1 cap Insulin Human Regular (Humulin R) 0 units SC 0630,2100 [facility] PRN Reason: Protocol Last Admin: 01/01/17 21:26 Dose: Not Given Lactic Acid (Lac-Hydrin 12% Lotion (225 G)) 1 applic TOP BID [facility] Last Admin: 01/01/17 17:04 Dose: 1 applic Metformin HCl (Glucophage) 500 mg PO DAILY [facility] Last Admin: 01/01/17 09:18 Dose: 500 mg Methimazole (Tapazole) 5 mg PO DAILY [facility] Last Admin: 01/01/17 09:19 Dose: 5 mg Metoprolol Tartrate (Lopressor) 50 mg PO Q12 [facility] Last Admin: 01/01/17 21:03 Dose: 50 mg Pantoprazole Sodium (Protonix Ec Tab) 40 mg PO DAILY [facility] Last Admin: 01/01/17 09:19 Dose: 40 mg Pravastatin Sodium (Pravachol) 20 mg PO HS [facility] Last Admin: 01/01/17 21:16 Dose: 20 mg - Labs Labs: 12/29/16 05:20 12/29/16 05:20 Assessment and Plan (1) Paraplegia Status: Chronic (2) Alteration in skin integrity due to moisture Status: Chronic (3) Abnormal computed tomography of abdomen and pelvis Status: Acute (4) Chest pain Status: Acute (5) Intracerebral hemorrhage Status: Acute (6) Left hemiplegia Status: Chronic (7) Prophylactic measure Status: Acute (8) Atrial fibrillation Status: Chronic (9) Cirrhosis of liver Status: Chronic
[2017-01-02] MEDS: Insulin Regular 100 units/ml SC SCH (07:33)
[2017-01-02] MEDS: Digoxin 125 mcg (0.125 mg) Tab PO SCH (08:15)
[2017-01-02] MEDS: methIMAzole 5 MG TAB PO SCH (08:15)
[2017-01-02] MEDS: Pantoprazole 40 mg EC Tab PO SCH (08:15)
[2017-01-02 08:16] VITALS: BP 130/95; PULSE 95
[2017-01-02 08:20] VITALS: TEMP 97.9; O2SAT 99
--- NOTE | 2017-01-02 12:55 | CP.PCM.DIS ---
Provider - Provider Date of Admission: 12/09/16 16:11 Attending physician: Evin Thomas MD Time Spent in preparation of Discharge (in minutes): 30 Hospital Course - Lab Results Lab Results: Most Recent Lab Values WBC 5.3 K/uL (4.8-10.8) 12/29/16 05:20 RBC 4.32 Mil/uL (3.80-5.20) 12/29/16 05:20 Hgb 13.0 g/dL (12.0-16.0) 12/29/16 05:20 Hct 37.3 % (34.0-47.0) 12/29/16 05:20 MCV 86.5 fl (81.0-99.0) 12/29/16 05:20 MCH 30.2 pg (27.0-31.0) 12/29/16 05:20 MCHC 34.9 g/dL (33.0-37.0) 12/29/16 05:20 RDW 16.2 % (11.5-14.5) H 12/29/16 05:20 Plt Count 116 K/uL (130-400) L 12/29/16 05:20 MPV 9.5 fl (7.2-11.7) 12/29/16 05:20 Neut % (Auto) 58.0 % (50.0-75.0) 12/29/16 05:20 Lymph % (Auto) 29.8 % (20.0-40.0) 12/29/16 05:20 Emanuel % (Auto) 9.2 % (0.0-10.0) 12/29/16 05:20 Eos % (Auto) 2.2 % (0.0-4.0) 12/29/16 05:20 Baso % (Auto) 0.8 % (0.0-2.0) 12/29/16 05:20 Neut # 3.1 K/uL (1.8-7.0) 12/29/16 05:20 Lymph # 1.6 K/uL (1.0-4.3) 12/29/16 05:20 Emanuel # 0.5 K/uL (0.0-0.8) 12/29/16 05:20 Eos # 0.1 K/uL (0.0-0.7) 12/29/16 05:20 Baso # 0.0 K/uL (0.0-0.2) 12/29/16 05:20 Sodium 137 mmol/l (132-148) 12/29/16 05:20 Potassium 3.9 MMOL/L (3.6-5.0) 12/29/16 05:20 Chloride 101 mmol/L (98-107) 12/29/16 05:20 Carbon Dioxide 25 mmol/L (22-30) 12/29/16 05:20 Anion Gap 14 (10-20) 12/29/16 05:20 BUN 15 mg/dl (7-17) 12/29/16 05:20 Creatinine 0.6 mg/dL (0.7-1.2) L 12/29/16 05:20 Est GFR ( Amer) > 60 12/29/16 05:20 Est GFR (Non-Af Amer) > 60 12/29/16 05:20 POC Glucose (mg/dL) 138 mg/dL (65-110) H 12/30/16 21:22 Random Glucose 131 mg/dL (65-105) H 12/29/16 05:20 Calcium 9.2 mg/dL (8.4-10.2) 12/29/16 05:20 Iron 80 ug/dL (37-170) 12/10/16 11:27 Ferritin 42.0 ng/mL 12/10/16 11:27 Total Bilirubin 1.7 mg/dl (0.2-1.3) H 12/29/16 05:20 AST 26 U/L (14-36) 12/29/16 05:20 ALT 41 U/L (9-52) 12/29/16 05:20 Alkaline Phosphatase 114 U/L (38-126) 12/29/16 05:20 Total Protein 6.9 G/DL (6.3-8.2) 12/29/16 05:20 Albumin 3.4 g/dL (3.5-5.0) L 12/29/16 05:20 Globulin 3.5 gm/dL (2.2-3.9) 12/29/16 05:20 Albumin/Globulin Ratio 1.0 (1.0-2.1) 12/29/16 05:20 Hepatitis A IgM Ab Negative (NEGATIVE) 12/10/16 11:27 Hep Bs Antigen Negative (NEGATIVE) 12/10/16 11:27 Hep B Core IgM Ab Negative (NEGATIVE) 12/10/16 11:27 Hepatitis C Antibody Negative (NEGATIVE) 12/10/16 11:27 - Hospital Course Hospital Course: 61 y/o female with history of HTN, A Fib, Hyperthyroidism, DM and 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 At present has shown some improvement, able to ambulate like [address] head showed no bleed. 1. Acute Intra Cerebral hemorrhage No neurosurgical intervention Eliquis and ASA on hold and stopped indefinitely Receiving PT/OT/Speech therapy in acute rehab and showed some improvement Physiatry consult with Dr Mack appreciated Repeat Ct head showed no bleed. Neurologist Dr. Joyner on consult. If patient would travel to [place] she would be at risk of developing DVT because of the long flight. Anti-platelets and anti-coagulant remained on hold because of the intra cerebral bleed incident.Plan to repeat CT head in AM before making decision to start ASA and Plavix. Strenuously encouraged to follow up closely with neuro as outpatient. 2. History of CVA (cerebrovascular accident) with residual right hemiparesis and aphasia off ASA continue statin on PT/OT/Speech therapy remains aphasic with flaccid limbs on the right side, some improvement with transfer 3. Portal HTN/Liver Cirrhosis seen on CT Portal HTN with Varices etiology unknown Schistosoma Ab- negative Hep screen negative Ferritin: 42 Further work up can be done as outpt 4. DM type 2 (diabetes mellitus, type 2), chronic BS relatively controlled Metformin 500 mg PO daily HgBA1C 5.8 5. HTN (hypertension) controlled BP stable continue Metoprolol Tartrate 6. Atrial fibrillation with RVR HR controlled ECHO: normal EF, no LV thrombus off Eliquis - will check with Dr Joyner when pt can be restarted on anticoagulant continue Metoprolol and Digoxin 7. Hyperthyroidism continue Methimazole TSH normal 8. Hyperlipidemia Lipitor 40 mg PO HS 9. Vitamin B12 deficiency Vitamin B12 supplement Discharge Exam - Head Exam Head Exam: ATRAUMATIC, NORMAL INSPECTION, NORMOCEPHALIC - Eye Exam Eye Exam: EOMI, Normal appearance, PERRL - ENT Exam ENT Exam: Mucous Membranes Moist, Normal Oropharynx - Neck Exam Neck exam: Normal Inspection - Respiratory Exam Respiratory Exam: Clear to PA & Lateral, NORMAL BREATHING PATTERN. absent: Rales - Cardiovascular Exam Cardiovascular Exam: RRR, +S1, +S2. absent: Gallop, Rubs - GI/Abdominal Exam GI & Abdominal Exam: Normal Bowel Sounds, Soft. absent: Mass, Organomegaly, Tenderness - Extremities Exam Extremities exam: normal capillary refill, pedal pulses present - Back Exam Back exam: absent: CVA tenderness (L), CVA tenderness (R) - Neurological Exam Neurological exam: Alert, Oriented x3 - Psychiatric Exam Psychiatric exam: Normal Affect, Normal Mood - Skin Skin Exam: Dry, Normal Color, Warm Discharge Plan - Discharge Medications Prescriptions: Ammonium Lactate 12% [Lac-Hydrin 12% Lotion (225 g)] 1 applic TOP BID #1 bottle Atorvastatin [Lipitor] 40 mg PO HS #30 tab Calcium Carbonate [Oscal] 500 mg PO BIDWM #60 tab Cyanocobalamin [Vitamin B12 1000 mcg/ml Inj] 1,000 mcg IM DAILY #3 vial Cyanocobalamin [Vitamin B12 1000 mcg Tab] 1,000 mcg PO DAILY #30 tab Digoxin [Lanoxin] 0.125 mg PO DAILY #30 tab Docusate [Colace] 100 mg PO BID #60 cap Ergocalciferol [Drisdol 50,000 Intl Units Cap] 1 cap PO Q7D #30 cap Ergocalciferol [Drisdol 50,000 Intl Units Cap] 1 cap PO Q7D #30 cap levETIRAcetam [Keppra] 500 mg PO BID #60 tab metFORMIN [glucOPHAGE] 500 mg PO DAILY #30 tab methIMAzole [Tapazole] 5 mg PO DAILY #30 Metoprolol Tartrate [Lopressor] 50 mg PO Q12 #60 tab - Follow Up Plan Condition: GOOD Disposition: HOME/ ROUTINE Instructions: Metoprolol (By mouth), Digoxin (By mouth), Laxative, Stool Softeners (By mouth), Ergocalciferol (By mouth), Pravastatin (By mouth), Methimazole (By mouth), Metformin (By mouth), Pantoprazole (By mouth), Levetiracetam (By mouth), Calcium Supplement (By mouth), Vitamin B-12 ( Cyanocobalamin) (By mouth), Atrial Fibrillation (DC), Chest Pain (DC), How to Check Your Blood Sugar (DC), Hyperthyroidism (DC), Diabetic Foot Care (DC), Diabetes Mellitus Type 2 in Adults (DC), Paraplegia (DC), Meal Planning with Diabetes Exchanges (DC), Hemorrhagic Stroke (DC), Chronic Hypertension (DC), Hyperlipidemia (DC) Additional Instructions: PLEASE FOLLOW UP WITH DOCTORS 1. Dr. Sayra Joyner (Neuro) [phone] [place] [address] [address] [place] [address] Please follow up in 1 week, call for appt. Per Dr. Joyner may start Aspirin 81mg by mouth daily after 1 week to start on ( December). Eliquis may NOT be restarted, and needs reassessment prior to restarting as it has high risk of causing bleeding especially with history of prior two bleeds. Per Dr. Joyner Keppra 500mg by mouth twice a day to be increase to Keppra 750mg by mouth twice a day in 1 week start (January 08, 2017) ALSO TO NOTE: Per Neurology patient cannot travel to [facility] (or anywhere else) for the next few weeks until the January as it is a travel that takes at least 18 hours up to 24 hours and may endanger her life due to the time of healing needed. 2. Dr. Anny Barajas (PMD) [phone] [place] [address] Please call to schedule home visit 3. List of private pay homemaker agencies provided to daughter. IF ANY CHANGES IN CONDITION OCCUR, RETURN TO ER IMMEDIATELY.
== END 2017-01-02 15:24 | disposition home or self-care (01) | DRG 57 ==
PROVIDERS: ADMIT Hospitalist; ATTEND Hospitalist
PROC: F07Z9FZ Gait Training/Functional Ambulation Treatment using Assistive, Adaptive, Supportive or Protective Equipment (ICD-10-PCS; principal; 2016-12-09)
PROC: F06Z3MZ Aphasia Treatment using Augmentative / Alternative Communication Equipment (ICD-10-PCS; 2016-12-09)
PROC: F07L6FZ Therapeutic Exercise Treatment of Musculoskeletal System - Lower Back / Lower Extremity using Assistive, Adaptive, Supportive or Protective Equipment (ICD-10-PCS; 2016-12-10)
PROC: F08Z4FZ Home Management Treatment using Assistive, Adaptive, Supportive or Protective Equipment (ICD-10-PCS; 2016-12-10)
DX: I69.151 Hemiplegia and hemiparesis following nontraumatic intracerebral hemorrhage affecting right dominant side (principal); K76.6 Portal hypertension; I69.120 Aphasia following nontraumatic intracerebral hemorrhage; K74.69 Other cirrhosis of liver; I48.2 Chronic atrial fibrillation; E05.80 Other thyrotoxicosis without thyrotoxic crisis or storm; E11.9 Type 2 diabetes mellitus without complications; E78.5 Hyperlipidemia, unspecified; E53.8 Deficiency of other specified B group vitamins; E55.9 Vitamin D deficiency, unspecified; R07.89 Other chest pain; Z79.01 Long term (current) use of anticoagulants; Z79.84 Long term (current) use of oral hypoglycemic drugs